=== PATIENT | female | born 1950 | race African-American/Black ===

== ENCOUNTER → 2020-08-03 09:08 | Outpatient (BNVA) | payer MEDICAID, SELFPAY | PROVIDERS: PCP Family Medicine; Visit Provider Anesthesiology | DX: M47.816 Spondylosis without myelopathy or radiculopathy, lumbar region (principal) | CPT/HCPCS: 99202 ==

== ENCOUNTER → 2020-08-12 14:56 | Outpatient (BNVA) | payer MEDICAID, SELFPAY | PROVIDERS: Visit Provider Urology ==

== ENCOUNTER 2020-08-30 06:11 | Outpatient (REF) | payer MEDICAID, SELFPAY ==
--- NOTE | ~2020-08-30 | FL_ITS ---
EXAMINATION: XR FLUOROSCOPY WITH IMAGES CLINICAL INFORMATION: Spondylosis lumbar region COMPARISON: None. TECHNIQUE: Fluoroscopy performed by Noa Mccullough NP. Fluoroscopy time: 0.7 minutes DAP: 8.7 Gycm2 Images: 4 FINDINGS: Images demonstrate needle placement and epidural contrast injections adjacent to the left L2-L5 vertebral bodies. FL/FL guidance in treatment room IMPRESSION: Fluoroscopy guidance for left side lumbar epidural injections.
== END 2020-08-30 06:12 | disposition home or self-care (01) ==
LOC: HO.RADIR 06:11
PROVIDERS: Visit Provider Anesthesiology
DX: M47.816 Spondylosis without myelopathy or radiculopathy, lumbar region (principal); M54.5 Low back pain
CPT/HCPCS: 64493; 64494; 64495; Q9967

== ENCOUNTER → 2020-09-05 15:49 | Outpatient (BNVA) | payer MEDICAID, SELFPAY | PROVIDERS: Visit Provider Anesthesiology ==

== ENCOUNTER 2020-09-23 13:23 | Outpatient (REF) | payer MEDICAID, SELFPAY ==
--- NOTE | ~2020-09-23 | MM_ITS ---
EXAMINATION: MM SCREENING DIGITAL BREAST TOMOSYNTHESIS, BILATERAL CLINICAL INFORMATION: Screening. Asymptomatic. Benign left stereotactic biopsy 10/13/2015 (fibrocystic changes including apocrine metaplasia and fibrosis with associated microcalcifications). The lifetime risk of breast cancer based on the Tyrer-Cuzick Model is 8%. COMPARISON: Mammography: 12/30/2018 and prior studies dating back to 10/13/2015. Bilateral targeted ultrasound 10/10/2015. TECHNIQUE: Digital breast tomosynthesis is performed in both the craniocaudal and mediolateral oblique views along with computer-aided detection (CAD). Synthesized 2D images are generated from the tomosynthesis. FINDINGS: There are scattered areas of fibroglandular density (ACR BI-RADS breast composition Category b). There are no significant masses, abnormal calcifications, or other abnormalities. Right breast shows no interval mass or architectural abnormality. Cysts right breast have regressed since 2016. Left breast has biopsy clip marker mid 3:00 position. There are some scattered stable calcifications including known dermal calcifications anterior 12:00 position. Scattered cysts left breast is essentially regressed 2016. MM/MM tomosynthesis screening BI IMPRESSION: 1. No mammographic evidence of malignancy. 2. Interval regression bilateral cysts since 2016. 3. Known grouped dermal calcifications upper anterior left breast stable. ASSESSMENT: BI-RADS 2: Benign RECOMMENDATION: Routine annual mammography screening. This patient's information was entered into a reminder system with a target due date for their next mammogram.
== END 2020-09-23 13:24 | disposition home or self-care (01) ==
LOC: HO.MAMMO 13:23
PROVIDERS: Visit Provider Family Medicine
DX: Z12.31 Encounter for screening mammogram for malignant neoplasm of breast (principal)
CPT/HCPCS: 77063; 77067

== ENCOUNTER → 2020-11-15 13:39 | Outpatient (BNVA) | payer MEDICAID, SELFPAY | PROVIDERS: PCP Internal Medicine; Referring Provider Internal Medicine; Visit Provider Internal Medicine Endocrinology, Diabetes & Metabolism | DX: M81.0 Age-related osteoporosis without current pathological fracture (principal) | CPT/HCPCS: 99202 ==

== ENCOUNTER 2020-11-21 13:58 | Outpatient (REF) | payer MEDICAID, SELFPAY ==
[2020-11-21 15:04] LABS: Alanine Aminotransferase 10 U/L (0-31); Albumin Level 3.6 g/dL (3.5-5.0); Alkaline Phosphatase 96 U/L (39-117); Anion Gap 10 (12-20); Aspartate Amino Transferase 18 U/L (5-31); Bilirubin Total 1.1 mg/dL (0.0-1.0); Blood Urea Nitrogen 12 mg/dL (9-16); Calcium 8.8 mg/dL (8.4-10.2); Carbon Dioxide 27 mmol/L (22-29); Chloride 109 mmol/L (96-108); Estimated Glomerular Filt Rate > 60; Glucose Fasting 91 mg/dL (60-99); Potassium 3.5 mmol/L (3.3-5.1); Sodium 142 mmol/L (135-145); Total Protein 7.1 g/dL (6.5-8.0)
[2020-11-21 15:26] LABS: Free T4 (Free Thyroxine) 1.08 ng/dL (0.71-1.85); Thyroid Stimulating Hormone 0.44 uIU/mL (0.32-4.0); Vitamin D 25-OH Total 47.3 ng/mL (>30)
[2020-11-21 15:34] LABS: Total Volume 24 Hour Urine 1400 mL
[2020-11-21 15:46] LABS: Creatinine, 24Hr Urine 1.3 G/Day (1.0-2.0); Creatinine, mg/dL 90.21
[2020-11-23 10:26] LABS: Calcium (PTHI) 8.7 mg/dL (8.6-10.4); PTHI 146 pg/mL (14-64)
[2020-11-24 18:26] LABS: Calcium, 24 Hr Urine 211 mg/24 h; Calcium/Creatinine Ratio 102 mg/g creat (30-275); Creatinine 24Hr Urine 2.07 g/24 h (0.50-2.15)
[2020-11-25 04:58] LABS: N-Telopeptide 31 (see note); NTXCreaRU 150 mg/dL (20-275)
== END 2020-11-21 13:59 | disposition home or self-care (01) ==
LOC: HO.LAB 13:58
PROVIDERS: Visit Provider Internal Medicine Endocrinology, Diabetes & Metabolism
DX: M81.0 Age-related osteoporosis without current pathological fracture (principal)
CPT/HCPCS: 36415; 80053; 82306; 82340; 82523; 82570; 83970; 84439; 84443

== ENCOUNTER 2020-12-02 11:15 | Emergency (ER) | payer MEDICAID, SELFPAY ==
--- NOTE | ~2020-12-02 | CT_ITS ---
EXAMINATION: CT HEAD WITHOUT CONTRAST CLINICAL INFORMATION: Unwitnessed fall yesterday. Secondary trauma. COMPARISON: None TECHNIQUE: Contiguous axial imaging was performed from the skull base to vertex without intravenous administration of contrast. Additional 2-D coronal and sagittal reformatted images are generated on the CT workstation and uploaded to PACS. This CT examination was performed using dose optimization techniques as appropriate, variously including the following: *Automated exposure control *Adjustment of mA and/or kV according to patient size (this includes techniques or standardized protocols for targeted exams where dose is matched to indication/reason for exam; i.e. extremities or head) *Use of iterative reconstruction technique DLP: 700 mGy-cm FINDINGS: There is no intracranial hemorrhage, hematoma, or extra-axial fluid collection. The ventricles are normal in size. There is no hydrocephalus, edema, or mass effect. The centeno-white matter differentiation appears symmetric. There is no visible acute territorial infarct or mass lesion. There are mild atrophic changes with nonfocal accentuation of the cortical sulci and fissures and cisterns. The calvarium appears intact. There is no pneumocephalus or orbital emphysema. The visualized sinuses and middle ears and mastoid air cells show no significant mucosal thickening. There are no air-fluid levels. CT/CT head/brain wo con IMPRESSION: No acute intracranial abnormality.
--- NOTE | ~2020-12-02 | XR_ITS ---
EXAMINATION: XR CHEST CLINICAL INFORMATION: Weakness, fall COMPARISON: Chest radiographs 11/11/2015 TECHNIQUE: Upright AP view of the chest was obtained. FINDINGS: The cardiopericardial silhouette is borderline enlarged, similar to prior exam 2016. The vascularity is normal. There is no vascular congestion, airspace consolidation, pleural reaction, or effusion. No pneumothorax or pneumomediastinum. The costophrenic sulci are clear. The hilar and mediastinal contours are normal. No visible acute bony abnormality. XR/XR chest 1V IMPRESSION: No acute intrathoracic disease.
--- NOTE | ~2020-12-02 | XR_ITS ---
EXAMINATION: XR KNEE, LEFT CLINICAL INFORMATION: Fall, trauma, pain. Unable to bear weight. COMPARISON: None TECHNIQUE: Four views of the left knee. FINDINGS: There is no fracture, dislocation, destructive process. There is narrowing lateral knee joint compartment with mild genu valgus. No erosive change or chondrocalcinosis. There is moderate suprapatellar effusion. Bulky spurring is present patella at the quadriceps insertion and origin patellar tendon. There is some thickening of the patellar soft tissue and mild edema in the deep infrapatellar recess. XR/XR knee LT 3V IMPRESSION: 1. No fracture or dislocation. 2. Mild lateral compartment narrowing with moderate suprapatellar effusion. 3. Bulky spurring anterior mechanism. Mild edema deep infrapatellar recess.
--- NOTE | ~2020-12-02 | XR_ITS ---
EXAMINATION: XR HIP, LEFT CLINICAL INFORMATION: Fall, trauma, pain COMPARISON: Radiographs left hip 02/15/2016. TECHNIQUE: Three views of the left hip. FINDINGS: There is no fracture or dislocation. No destructive process. There is no hip joint narrowing or erosive change or visible chondrocalcinosis. Chronic spurring is present involving the ischial tuberosity as well as the greater trochanter. No diastases pubis. XR/XR hip LT min 2V IMPRESSION: No fracture or dislocation.
[2020-12-02 11:41] VITALS: BP 95/59; PULSE 77; RESP 16; TEMP 36.7; O2SAT 97; BMI 31.6
--- NOTE | 2020-12-02 13:09 | ECG_ITS ---
Test Reason : WEAKNESS Blood Pressure : / mmHG Vent. Rate : 067 BPM Atrial Rate : 067 BPM P-R Int : 256 ms QRS Dur : 084 ms QT Int : 408 ms P-R-T Axes : 042 025 075 degrees QTc Int : 431 ms Sinus rhythm with 1st degree A-V block Nonspecific T wave abnormality Abnormal ECG No previous ECGs available Referred By: Roxy Clayton Electronically Signed By:JOSE QUINTANA
[2020-12-02 13:26] VITALS: BP 127/70; PULSE 72; RESP 18; TEMP 36.4; O2SAT 97
[2020-12-02] MEDS: 0.9 % Sodium Chloride 1,000 ML 999 ML IVCONT (13:34)
--- NOTE | 2020-12-02 13:41 | ED.WEAKNESS ---
HPI - Weakness General Chief complaint: Weakness Stated complaint: weakness Time Seen by Provider: 12/02/20 12:59 Source: patient Mode of arrival: ambulatory History of Present Illness HPI Narrative: 70-year-old female with a past medical history of hyperparathyroid, osteoporosis, Parkinson's, presenting to the ED complaining of increased generalized weakness over the past month, mechanical fall yesterday on left side after left knee gave out, unknown head trauma, patient denies LOC. Has been unable to bear weight on left lower extremity send incident. Denies symptoms prior to fall including CP/SOB, lightheadedness/dizziness. Denies a headache, visual changes, CP/SOB now, abdominal pain, nausea/vomiting, numbness/tingling, fever, chills MD Complaint: generalized weakness Related Data Home Medications Medication Instructions Recorded Confirmed carbidopa ER 50 mg-levodopa 200 mg 1 tab PO BID 08/03/20 11/15/20 tablet,extended release chlorhexidine gluconate 0.12 % 15 ml MUCOUS MEMBRANE BID 08/03/20 11/15/20 mouthwash cholecalciferol (vitamin D3) 125 125 mcg PO DAILY 08/03/20 11/15/20 mcg (5,000 unit) capsule diclofenac sodium 1 % topical gel 2 g TOPICAL QID 08/03/20 11/15/20 duloxetine 60 mg capsule,delayed 60 mg PO DAILY 08/03/20 11/15/20 release ibuprofen 800 mg tablet 800 mg PO TID 08/03/20 11/15/20 latanoprost 0.005 % eye drops 1 drp OPHTHALMIC (EYE) DAILY 08/03/20 11/15/20 meclizine 25 mg tablet 25 mg PO DAILY 08/03/20 11/15/20 oxybutynin chloride 5 mg 5 mg PO DAILY 08/03/20 11/15/20 tablet,extended release 24 hr simvastatin 10 mg tablet 10 mg PO DAILY 08/03/20 11/15/20 timolol 0.5 % eye drops 1 drp OPHTHALMIC (EYE) DAILY 08/03/20 11/15/20 tramadol 50 mg tablet 50 mg PO Q6H PRN 08/03/20 11/15/20 Previous Rx's Medication Instructions Recorded mirabegron 25 mg tablet,extended 25 mg PO DAILY 60 Days #60 tab 10/18/20 release 24 hr tamsulosin 0.4 mg capsule 0.4 mg PO BEDTIME 60 Days #60 cap 10/18/20 alendronate 70 mg tablet 70 mg PO QWEEK 90 Days #13 tab 11/15/20 ibuprofen 800 mg PO Q8H PRN #20 tab 12/02/20 oxycodone-acetaminophen [Percocet] 1 tab PO Q8H PRN 3 Days #9 tab 12/02/20 rolling walker #1 ea 12/02/20 Allergies Allergy/AdvReac Type Severity Reaction Status Date / Time No Known Allergies Allergy Verified 09/05/20 15:49 Review of Systems Review of Systems: Constitutional: No Fever, No Chills, + Fatigue, No Malaise Eyes: No Eye Pain, No Swelling, No Vision Changes Cardiovascular: No Chest Pain, No SOB, No Edema Respiratory: No Cough, No Sputum, No Dyspnea Gastrointestinal: No Nausea, No Vomiting, No Diarrhea, No Abdominal pain Genitourinary: No irregular bleeding, No Dysuria, No Urinary Frequency, No Hematuria,No Flank Pain Musculoskeletal: +L knee pain, No Myalgias, No Joint Swelling Skin: No Skin Lesions, No rash Neuro: + Weakness, No Numbness, No Paresthesias, No Loss of Consciousness, Unknown head trauma, No Dizziness, No Headache Yes all other systems are reviewed and are negative Neurologic: Denies Abnormal speech present [facility] Past Medical History Attestation statement: The following information was validated with the patient. Medical History (Updated 12/02/20 @ 18:02 by MOY Cooney) Arthropathy of lumbar facet joint Hyperparathyroidism Low back pain Osteoporosis Parkinson disease Surgical History (Updated 11/15/20 @ 13:51 by ABDULLAHI Amado) No pertinent past surgical history Family History Family History (Updated 11/15/20 @ 13:58 by ABDULLAHI Amado) Father No problems noted. Mother No problems noted. Social History Social History (Updated 11/15/20 @ 13:51 by ABDULLAHI Amado) Alcohol intake: never Patient Tobacco Use Status: Never used Tobacco Advance Directives: No Advance Directives Information Provided: No Physical Exam Vital Signs: Vital Signs: Last Vital Signs Temp 98 F 12/02/20 16:46 Pulse 71 12/02/20 16:46 Resp 18 06/18/21 16:46 BP 134/72 12/02/20 16:46 Pulse Ox 97 12/02/20 16:46 Body Mass Index 31.6 Const: General: cooperative and no acute distress Orientation/consciousness: patient oriented x3 Limitations: no limitations HENMT: Head: Yes normal to inspection Ears: hearing grossly normal bilaterally General nose exam: Normal external nose present Face and sinus: Yes normal facial exam Mouth: Normal oral and palatal mucosa present Eyes: General: appearance normal, both eyes and all related structures Pupils: Equal, round and reactive pupils present EOM: EOMs intact bilaterally Neck: Neck: Yes normal visual inspection and Yes no lymphadenopathy Resp: Effort & Inspection: normal respiratory effort Auscultation: clear to auscultation bilaterally and no wheezes Cardio: Rate: regular rate Heart sounds: S1 normal heart sound present and S2 normal heart sound present GI: Inspection: Yes normal to inspection Palpation (GI): Soft to palpation, nontender, no guarding and not rigid Skin: Rashes: no rashes Wounds: no wounds Neuro: General: patient oriented x3, tone normal, moves all extremities, no focal motor deficits and CN's II-XI intact bilaterally Cranial nerves: Yes Equal, round and reactive pupils present Speech: No Abnormal speech present Motor exam (neuro): 5/5 motor strength present throughout, Pronator motor function not present and no tremor noted Coordination: [id number] test normal Extrem: Other: Left knee with mild tenderness to palpation. Decreased full flexion secondary to pain. Pelvis stable, hips nontender General: Yes normal to inspection Course Course Course Narrative: -no leukocytosis, H&H stable, labs otherwise unremarkable, troponin negative -CXR unremarkable CT head/brain wo con IMPRESSION: No acute intracranial abnormality. XR knee LT 3V IMPRESSION: 1. No fracture or dislocation. 2. Mild lateral compartment narrowing with moderate suprapatellar effusion. 3. Bulky spurring anterior mechanism. Mild edema deep infrapatellar recess. XR hip LT min 2V IMPRESSION: No fracture or dislocation. -offered patient PT/case management however not willing to stay overnight for physical therapy evaluation in the morning. Case Management spoke to patient and daughter, plan to call PCP on Saturday to hopefully set up home PT for patient. -UA not infected MDM - Weakness MDM Narrative Medical decision making narrative: 70-year-old female with a past medical history of hyperparathyroid, osteoporosis, Parkinson's, presenting to the ED complaining of increased generalized weakness over the past month, mechanical fall yesterday on left side after left knee gave out, unknown head trauma, patient denies LOC. On exam initially hypotensive, corrective without intervention on repeat, NAD/nontoxic, no focal deficits, concern for metabolic/infectious etiology. Rule out ICH vs fracture vs ACS vs generalized deconditioning from Parkinson's Plan: EKG, labs, UA, head CT, CXR, IVF, reassess Medical Records Attestation: I reviewed the patient's medical records. Lab Data Attestation: I reviewed the patient's lab results. Result diagrams: 12/02/20 13:34 12/02/20 13:34 Labs: Lab Results 12/02/20 12/02/20 12/02/20 Range/Units 13:33 13:34 13:34 WBC 5.5 (4.8-10.8) X10*3/uL RBC 4.05 L (4.20-5.50) X10*6/uL Hgb 12.3 (12.0-16.0) g/dl Hct 38.4 (37-47) % MCV 94.8 (80-98) fL MCH 30.4 (27.0-33.0) pg MCHC 32.0 (31.0-35.0) g/dl RDW 13.7 (11.0-16.0) % Plt Count 176 (160-400) X10*3/uL MPV 10.4 (9.4-12.3) fL Immature Gran % (Auto) 0.2 (0.0-0.4) % Neut % (Auto) 47.5 (45-73) % Lymph % (Auto) 37.3 (20-40) % [place] % (Auto) 13.3 H (2-11) % Eos % (Auto) 1.3 (0-4) % Baso % (Auto) 0.4 (0-2) % Lymph # (Auto) 2.1 (1.2-4.9) X10*3/uL [place] # (Auto) 0.7 (0.1-1.2) X10*3/uL Eos # (Auto) 0.1 (0.0-0.4) X10*3/uL Baso # (Auto) 0.0 (0.0-0.2) X10*3/uL Abs Immat Gran (auto) 0.01 (0.00-0.03) X10*3/uL Absolute Neuts (auto) 2.6 (2.0-8.3) X10*3/uL Absolute Nucleated RBC 0.000 (0.0-0.012) X10*3/uL Nucleated RBC % (auto) 0.0 (0.0-0.2) /100WBC PT (10.8-13.0) SEC INR (0.9-1.1) APTT (24.1-38.0) SEC Sodium 142 (135-145) mmol/L Potassium 4.3 D (3.3-5.1) mmol/L Chloride 111 H (96-108) mmol/L Carbon Dioxide 27 (22-29) mmol/L Anion Gap 8 L (12-20) BUN 17 H (9-16) mg/dL Creatinine 0.82 (0.5-1.4) mg/dL Estim Creat Clear Calc 68.2 Estimated GFR > 60 Random Glucose 131 H (60-115) mg/dL Calcium 8.7 (8.4-10.2) mg/dL Magnesium (1.6-2.6) mg/dL Total Bilirubin 0.9 (0.0-1.0) mg/dL AST 15 (5-31) U/L ALT 9 (0-31) U/L Alkaline Phosphatase 92 (39-117) U/L Troponin I High Sens (<3.5-17.0) ng/L B-Natriuretic Peptide (<100) pg/mL Total Protein 7.0 (6.5-8.0) g/dL Albumin 3.6 (3.5-5.0) g/dL Urine Color Urine Appearance Urine pH (5.0-8.0) Ur Specific [place] (1.005-1.025) Urine Protein (NEG-TRACE) MG/DL Urine Glucose (UA) (NEG) MG/DL Urine Ketones (NEG) MG/DL Urine Blood (NEG) Urine Nitrite (NEG) Ur Leukocyte Esterase (NEG) Urine RBC (0) /HPF Urine WBC (0-4) /HPF Ur Squamous Epith Cells /LPF Urine Bacteria /LPF COVID-19 (MIGUEL) Negative (Negative) COVID-19 Clin Com See Note 12/02/20 12/02/20 12/02/20 Range/Units 13:34 13:34 13:34 WBC (4.8-10.8) X10*3/uL RBC (4.20-5.50) X10*6/uL Hgb (12.0-16.0) g/dl Hct (37-47) % MCV (80-98) fL MCH (27.0-33.0) pg MCHC (31.0-35.0) g/dl RDW (11.0-16.0) % Plt Count (160-400) X10*3/uL MPV (9.4-12.3) fL Immature Gran % (Auto) (0.0-0.4) % Neut % (Auto) (45-73) % Lymph % (Auto) (20-40) % [place] % (Auto) (2-11) % Eos % (Auto) (0-4) % Baso % (Auto) (0-2) % Lymph # (Auto) (1.2-4.9) X10*3/uL [place] # (Auto) (0.1-1.2) X10*3/uL Eos # (Auto) (0.0-0.4) X10*3/uL Baso # (Auto) (0.0-0.2) X10*3/uL Abs Immat Gran (auto) (0.00-0.03) X10*3/uL Absolute Neuts (auto) (2.0-8.3) X10*3/uL Absolute Nucleated RBC (0.0-0.012) X10*3/uL Nucleated RBC % (auto) (0.0-0.2) /100WBC PT 12.6 (10.8-13.0) SEC INR 1.1 (0.9-1.1) APTT 34.1 (24.1-38.0) SEC Sodium (135-145) mmol/L Potassium (3.3-5.1) mmol/L Chloride (96-108) mmol/L Carbon Dioxide (22-29) mmol/L Anion Gap (12-20) BUN (9-16) mg/dL Creatinine (0.5-1.4) mg/dL Estim Creat Clear Calc Estimated GFR Random Glucose (60-115) mg/dL Calcium (8.4-10.2) mg/dL Magnesium 2.5 (1.6-2.6) mg/dL Total Bilirubin (0.0-1.0) mg/dL AST (5-31) U/L ALT (0-31) U/L Alkaline Phosphatase (39-117) U/L Troponin I High Sens < 3.5 (<3.5-17.0) ng/L B-Natriuretic Peptide 42 (<100) pg/mL Total Protein (6.5-8.0) g/dL Albumin (3.5-5.0) g/dL Urine Color Urine Appearance Urine pH (5.0-8.0) Ur Specific [place] (1.005-1.025) Urine Protein (NEG-TRACE) MG/DL Urine Glucose (UA) (NEG) MG/DL Urine Ketones (NEG) MG/DL Urine Blood (NEG) Urine Nitrite (NEG) Ur Leukocyte Esterase (NEG) Urine RBC (0) /HPF Urine WBC (0-4) /HPF Ur Squamous Epith Cells /LPF Urine Bacteria /LPF COVID-19 (MIGUEL) (Negative) COVID-19 Clin Com 12/02/20 Range/Units 17:30 WBC (4.8-10.8) X10*3/uL RBC (4.20-5.50) X10*6/uL Hgb (12.0-16.0) g/dl Hct (37-47) % MCV (80-98) fL MCH (27.0-33.0) pg MCHC (31.0-35.0) g/dl RDW (11.0-16.0) % Plt Count (160-400) X10*3/uL MPV (9.4-12.3) fL Immature Gran % (Auto) (0.0-0.4) % Neut % (Auto) (45-73) % Lymph % (Auto) (20-40) % [place] % (Auto) (2-11) % Eos % (Auto) (0-4) % Baso % (Auto) (0-2) % Lymph # (Auto) (1.2-4.9) X10*3/uL [place] # (Auto) (0.1-1.2) X10*3/uL Eos # (Auto) (0.0-0.4) X10*3/uL Baso # (Auto) (0.0-0.2) X10*3/uL Abs Immat Gran (auto) (0.00-0.03) X10*3/uL Absolute Neuts (auto) (2.0-8.3) X10*3/uL Absolute Nucleated RBC (0.0-0.012) X10*3/uL Nucleated RBC % (auto) (0.0-0.2) /100WBC PT (10.8-13.0) SEC INR (0.9-1.1) APTT (24.1-38.0) SEC Sodium (135-145) mmol/L Potassium (3.3-5.1) mmol/L Chloride (96-108) mmol/L Carbon Dioxide (22-29) mmol/L Anion Gap (12-20) BUN (9-16) mg/dL Creatinine (0.5-1.4) mg/dL Estim Creat Clear Calc Estimated GFR Random Glucose (60-115) mg/dL Calcium (8.4-10.2) mg/dL Magnesium (1.6-2.6) mg/dL Total Bilirubin (0.0-1.0) mg/dL AST (5-31) U/L ALT (0-31) U/L Alkaline Phosphatase (39-117) U/L Troponin I High Sens (<3.5-17.0) ng/L B-Natriuretic Peptide (<100) pg/mL Total Protein (6.5-8.0) g/dL Albumin (3.5-5.0) g/dL Urine Color YELLOW Urine Appearance CLEAR Urine pH 7.5 (5.0-8.0) Ur Specific [place] 1.010 (1.005-1.025) Urine Protein NEG (NEG-TRACE) MG/DL Urine Glucose (UA) NEG (NEG) MG/DL Urine Ketones NEG (NEG) MG/DL Urine Blood TRACE (NEG) Urine Nitrite NEG (NEG) Ur Leukocyte Esterase NEG (NEG) Urine RBC 1-4 (0) /HPF Urine WBC 0 (0-4) /HPF Ur Squamous Epith Cells NONE /LPF Urine Bacteria NONE /LPF COVID-19 (MIGUEL) (Negative) COVID-19 Clin Com Discharge Plan Discharge Clinical Impression: Generalized weakness, Fall, Acute pain of left knee Patient Disposition: Home, Self-Care Instructions: Weakness (ED) Additional Instructions: Your blood work was reassuring today in the emergency department Percocet is an opiate pain medication, take only when pain is severe for the next 3 days In addition take Tylenol and Motrin at home. Be aware Percocet Tylenol mixed in do not exceed 4 g in 1 day Your imaging studies were unremarkable other than your knee x-ray which did show some fluid above your patella and some swelling deep to your patella. Wear Mehul wrap at home as needed for comfort/stability. Ice and elevate her knee. Follow up with her primary care doctor and Orthopedics, you likely need an MRI outpatient, and cortisone injections may help with her pain Call your primary care doctor on Saturday, it is recommended you likely need home physical therapy to build up her strength If your symptoms persist or worsen, your unable to ambulate, you develop fever, chest pain, or shortness of breath please return to the ED Prescriptions: New (DME) karol walker See Rx Instructions .Route .MEDSUPPLY Qty: 1 RF: 0 oxycodone-acetaminophen [Percocet] 5-325 mg tablet 1 tab PO Q8H PRN (Reason: pain, severe) 3 Days Qty: 9 RF: 0 ibuprofen 800 mg tablet 800 mg PO Q8H PRN (Reason: pain) Qty: 20 RF: 0 No Action carbidopa-levodopa 50-200 mg tablet extended release 1 tab PO BID RF: 0 meclizine 25 mg tablet 25 mg PO DAILY RF: 0 latanoprost 0.005 % drops 1 drp ophthalmic (eye) DAILY RF: 0 timolol 0.5 % drops 1 drp ophthalmic (eye) DAILY RF: 0 chlorhexidine gluconate [Periogard] 0.12 % mouthwash 15 ml mucous membrane BID RF: 0 simvastatin 10 mg tablet 10 mg PO DAILY RF: 0 ibuprofen 800 mg tablet 800 mg PO TID RF: 0 cholecalciferol (vitamin D3) 125 mcg (5,000 unit) capsule 125 mcg PO DAILY RF: 0 duloxetine [Cymbalta] 60 mg capsule,delayed release(DR/EC) 60 mg PO DAILY RF: 0 oxybutynin chloride [Ditropan XL] 5 mg tablet extended release 24hr 5 mg PO DAILY RF: 0 diclofenac sodium [Voltaren] 1 % gel 2 g topical QID RF: 0 tramadol 50 mg tablet 50 mg PO Q6H PRNRF: 0 alendronate 70 mg tablet 70 mg PO QWEEK 90 Days Qty: 13 RF: 1 Myrbetriq 25 mg tablet extended release 24 hr 25 mg PO DAILY 60 Days Qty: 60 RF: 0 tamsulosin 0.4 mg capsule 0.4 mg PO BEDTIME 60 Days Qty: 60 RF: 0 Referrals: Stormy Abarca MD [Primary Care Provider] - 2 days Interventions: ED Discharge Assessment Last Done: 12/02/20 18:11 Discharge Date/Time: 12/02/20 18:11
[2020-12-02 13:44] LABS: Basophils Percent Auto 0.4 % (0-2); Eosinophils Absolute Auto 0.1 X10*3/uL (0.0-0.4); Eosinophils Percent Auto 1.3 % (0-4); Hematocrit 38.4 % (37-47); Hemoglobin 12.3 g/dl (12.0-16.0); Imm Gran Abs Auto 0.01 X10*3/uL (0.00-0.03); Imm Gran Pct Auto 0.2 % (0.0-0.4); Lymphocytes Absolute Auto 2.1 X10*3/uL (1.2-4.9); Lymphocytes Percent Auto 37.3 % (20-40); MANUAL DIFF FLAG NO; Mean Corpuscular Hemoglobin 30.4 pg (27.0-33.0); Mean Corpuscular Volume 94.8 fL (80-98); Mean Platelet Volume 10.4 fL (9.4-12.3); Monocytes Absolute Auto 0.7 X10*3/uL (0.1-1.2); Monocytes Percent Auto 13.3 % (2-11); Neutrophils Absolute Auto 2.6 X10*3/uL (2.0-8.3); Neutrophils Percent Auto 47.5 % (45-73); Platelet Count 176 X10*3/uL (160-400); Red Blood Count 4.05 X10*6/uL (4.20-5.50); Red Cell Distribution Width 13.7 % (11.0-16.0); White Blood Count 5.5 X10*3/uL (4.8-10.8)
[2020-12-02 14:00] LABS: COVID-19 Test Negative (Negative); IDNOW Serial# 9DD0AD1C
[2020-12-02 14:03] LABS: INTERNATIONAL NORM RATIO 1.1 (0.9-1.1); Prothrombin Time 12.6 SEC (10.8-13.0)
[2020-12-02 14:06] LABS: Partial Thromboplastin Time 34.1 SEC (24.1-38.0)
[2020-12-02 14:11] LABS: Alanine Aminotransferase 9 U/L (0-31); Albumin Level 3.6 g/dL (3.5-5.0); Alkaline Phosphatase 92 U/L (39-117); Anion Gap 8 (12-20); Aspartate Amino Transferase 15 U/L (5-31); Bilirubin Total 0.9 mg/dL (0.0-1.0); Blood Urea Nitrogen 17 mg/dL (9-16); Calcium 8.7 mg/dL (8.4-10.2); Carbon Dioxide 27 mmol/L (22-29); Chloride 111 mmol/L (96-108); Creatinine Clr Calc Pharmacy 68.2; Estimated Glomerular Filt Rate > 60; Glucose Random 131 mg/dL (60-115); Potassium 4.3 mmol/L (3.3-5.1); Sodium 142 mmol/L (135-145)
[2020-12-02 14:13] LABS: B Type Natriuretic Peptide 42 pg/mL (<100); Magnesium 2.5 mg/dL (1.6-2.6); Troponin-I High Sensitivity < 3.5 ng/L (<3.5-17.0)
[2020-12-02 15:44] VITALS: BP 124/73; PULSE 67; RESP 18; O2SAT 96
--- NOTE | 2020-12-02 16:43 | MHC.CM.ED ---
CM met with patient and daughter at request of Roxy Feliciano Pt lives with daughter and has no services. Is homebound. Knee and hip pain have made ambulation very difficult. X-rays show no fx. Daughter, Althea Baca ([phone]), is the DON at [employer]. Roxy is recommending PT evaluation. Daughter does not want her mother to stay overnight in the ED for an evaluation and will call primary care to arrange for home PT. Daughter is requesting a script for a rollator walker. Roxy Sellers. aware. CM will follow for d/c needs.
[2020-12-02 16:46] VITALS: BP 134/72; PULSE 71; RESP 18; TEMP 36.6; O2SAT 97
[2020-12-02 17:42] LABS: Glucose Urine UA NEG (NEG); Leukocyte Esterase Urine NEG (NEG); Nitrite Urine NEG (NEG); PH 7.5 (5.0-8.0); Urine Blood TRACE (NEG); Urine Ketones NEG (NEG); Urine Protein NEG (NEG-TRACE)
[2020-12-02 17:43] LABS: Appearance Urine CLEAR; Color Urine YELLOW
[2020-12-02 18:06] LABS: WBC Urine 0 /HPF (0-4)
== END 2020-12-02 18:11 | disposition home or self-care (01) ==
PROVIDERS: Physician Assistant; Emergency Provider Emergency Medicine; PCP Pediatrics
DX: R53.1 Weakness (principal); M25.562 Pain in left knee; G20 Parkinson's disease; Z91.81 History of falling; Z20.822 Contact with and (suspected) exposure to COVID-19
CPT/HCPCS: 36415; 51701; 70450; 71045; 73502; 73562; 80053; 81001; 83735; 83880; 84484; 85025; 85610; 85730; 87635; 93005; 96360; 99283; 99285

== ENCOUNTER → 2020-12-14 14:57 | Outpatient (BNVA) | payer MEDICAID, SELFPAY | PROVIDERS: PCP Pediatrics; Visit Provider Urology | DX: R39.12 Poor urinary stream (principal); N39.41 Urge incontinence | CPT/HCPCS: 99212 ==

== ENCOUNTER → 2020-12-28 12:57 | Outpatient (BNVA) | payer MEDICAID, SELFPAY | PROVIDERS: PCP Pediatrics; Visit Provider Internal Medicine Endocrinology, Diabetes & Metabolism | DX: M81.0 Age-related osteoporosis without current pathological fracture (principal); E21.3 Hyperparathyroidism, unspecified | CPT/HCPCS: 99212 ==

== ENCOUNTER 2020-12-29 10:52 | Outpatient (REF) | payer MEDICAID, SELFPAY ==
[2020-12-29 12:39] LABS: Magnesium 1.9 mg/dL (1.6-2.6); Phosphorus 3.3 mg/dL (2.7-4.5)
[2020-12-29 13:00] LABS: Vitamin D 25-OH Total 40.1 ng/mL (>30)
[2020-12-31 12:32] LABS: Immunoglobulin A 212 mg/dL (70-320)
[2021-01-02 09:32] LABS: Calcium (PTHI) 9.2 mg/dL (8.6-10.4); PTHI 104 pg/mL (14-64)
[2021-01-02 12:36] LABS: VITAMIN D (1,25 OH) D3 90 pg/mL; Vit D (1,25-Dihydroxy) Total 90 pg/mL (18-72); Vitamin D (1,25 OH) D2 <8 pg/mL
[2021-01-02 15:26] LABS: Calcium, Ionized 5.1 mg/dL (4.8-5.6)
[2021-01-03 14:31] LABS: Transglutaminase Ab IgG 2 U/mL
[2021-01-10 12:07] LABS: Endomysial IgA Antibody Negative (Negative)
== END 2020-12-29 10:53 | disposition home or self-care (01) ==
LOC: HO.LAB 10:52
PROVIDERS: Visit Provider Internal Medicine Endocrinology, Diabetes & Metabolism
DX: E21.3 Hyperparathyroidism, unspecified (principal); M81.0 Age-related osteoporosis without current pathological fracture
CPT/HCPCS: 36415; 81382; 82306; 82330; 82652; 82784; 83516; 83735; 83970; 84075; 84100; 86255; 86256

== ENCOUNTER 2021-01-12 14:54 | Outpatient (REF) | payer MEDICAID, SELFPAY ==
--- NOTE | ~2021-01-12 | MM_ITS ---
EXAMINATION: BONE DENSITOMETRY CLINICAL INDICATION: Osteoporosis. COMPARISON: Baseline BD dated 12/30/2018. TECHNIQUE: Using a Streamfile DXA System (software version: 13.1) manufactured by [employer], dual-energy x-ray absorptiometry was performed of the lumbar spine, left hip, and left forearm radius 33%. The images are of good technical quality. Summary results are attached. FINDINGS: AP SPINE L1-L4: Current: BMD 1.033 g/cm2, Z-score -0.8, T-score -1.2, osteopenia, 12.5% increase from baseline (<5% change is not significant). Baseline: BMD 0.918 g/cm2. LEFT FEMUR, NECK: Current: BMD 0.613 g/cm2, Z-score -2.6, T-score 3.1, osteoporosis. Baseline: BMD 0.677 g/cm2. LEFT FEMUR, TOTAL: Current: BMD 0.585 g/cm2, Z-score -3.2, T-score -3.4, osteoporosis, 14.3% decrease from baseline (<5% change is not significant). Baseline: BMD 0.683 g/cm2. LEFT FOREARM RADIUS 33%: BMD 0.546 g/cm2, Z-score -2.6, T-score -3.8, osteoporosis. Prior: Not previously measured. IDENTIFIED RISK FACTORS: Hyperparathyroid, osteoporosis, menopause. HISTORY OF FRACTURE: None listed. MEDICATIONS: None listed. MM/XR DEXA appendicular skeleton IMPRESSION: 1. DIAGNOSIS: Osteoporosis based on the lowest T-score value of -3.8 in the forearm radius 33% applying World Health Organization criteria. 2. 10-YEAR FRACTURE RISK PREDICTION, FRAX: Major osteoporotic fracture (clinical spine, forearm, hip or shoulder) 8.7%. Hip fracture 2.9%. 3. Treatment Recommendations: NOF guidelines recommend consideration for treatment in postmenopausal women and men age 50 and older presenting with the following: -A hip or vertebral (clinical or morphometric) fracture. -T-score less than or equal to -2.5 at the femoral neck or spine after appropriate evaluation to exclude secondary causes. -Low bone mass at the hip or spine and a 10-year fracture probability by FRAX of greater than or equal to 3% for hip fracture or greater than or equal to 20% for major osteoporotic fracture based on the [place] adapted WHO algorithm. 4. Other Recommendations: All treatment decisions require clinical judgment and consideration of individual patient factors, including patient preferences, comorbidities, previous drug use, risk factors not captured in the FRAX model (e.g. frailty, falls, vitamin D deficiency, increased bone turnover, interval significant decline in bone density) and possible under or overestimation of fracture risk by FRAX. Additional medical evaluation for secondary cause of low bone mineral density may be appropriate. FUTURE SCAN RECOMMENDATION: People with diagnosed cases of osteoporosis or at high risk for fracture should have regular bone mineral density tests. For patients eligible for Medicare, routine testing is allowed once every 2 years. The testing frequency can be increased to one year for patients who have rapidly progressing disease, those who are receiving or discontinuing medical therapy to restore bone mass, or have additional risk factors.
== END 2021-01-12 14:55 | disposition home or self-care (01) ==
LOC: HO.MAMMO 14:54
PROVIDERS: Visit Provider Internal Medicine Endocrinology, Diabetes & Metabolism
DX: Z13.820 Encounter for screening for osteoporosis (principal); M81.0 Age-related osteoporosis without current pathological fracture; E21.3 Hyperparathyroidism, unspecified; Z78.0 Asymptomatic menopausal state
CPT/HCPCS: 77081

== ENCOUNTER → 2021-06-15 15:03 | Outpatient (BNVA) | payer MEDICAID, SELFPAY | PROVIDERS: PCP Pediatrics | DX: R39.12 Poor urinary stream (principal); N39.41 Urge incontinence | CPT/HCPCS: 51798; 99212 ==

== ENCOUNTER 2021-06-29 10:43 | Outpatient (REF) | payer MEDICAID, SELFPAY ==
--- NOTE | ~2021-06-29 | XR_ITS ---
EXAMINATION: XR KNEE, LEFT CLINICAL INFORMATION: Left knee pain. COMPARISON: 12/02/2020 TECHNIQUE: Four views of the left knee. FINDINGS: There is no evidence of acute fracture or dislocation of the left knee. Medial and lateral joint space compartments appear maintained. There is marginal spurring seen involving the lateral joint space compartment. There is a small knee effusion. There is prominent spurring at the patellofemoral joint with some narrowing of the lateral facet space. Patellar spurs sites of insertion of quadriceps and patellar tendons noted. XR/XR knee LT 4V IMPRESSION: Stable degenerative changes of the left knee predominantly involving the patellofemoral joint. Small left knee effusion.
== END 2021-06-29 10:44 | disposition home or self-care (01) ==
LOC: HO.XRAY 10:43
PROVIDERS: Absent Provider Internal Medicine; PCP Internal Medicine; Visit Provider Family Medicine
DX: M25.562 Pain in left knee (principal)
CPT/HCPCS: 73564

== ENCOUNTER 2021-07-14 13:39 | Outpatient (REF) | payer MEDICAID, SELFPAY ==
--- NOTE | ~2021-07-14 | XR_ITS ---
EXAMINATION: XR HIP, LEFT CLINICAL INFORMATION: Pain. COMPARISON: Radiograph of the left hip dated from 12/02/2020. TECHNIQUE: Two views of the left hip. FINDINGS: No evidence of acute fractures or malalignment. Moderate left osteoarthritis of the glenohumeral joint with space narrowing, subcortical sclerosis and osteophytes. Moderate enthesophytes in the greater trochanter of the left femur and ischial tuberosity. No unexpected radiopaque foreign bodies. Normal appearance of the soft tissues. XR/XR hip LT min 2V IMPRESSION: No acute fractures or malalignment. However, if pain persists, recommend an interval study as early nondisplaced fractures can be occult. Moderate osteoarthritis with bony productive changes.
== END 2021-07-14 13:40 | disposition home or self-care (01) ==
LOC: HO.XRAY 13:39
PROVIDERS: PCP Internal Medicine; Visit Provider Internal Medicine
DX: M25.552 Pain in left hip (principal)
CPT/HCPCS: 73502

== ENCOUNTER → 2021-07-20 15:40 | Outpatient (BNVA) | payer OTHER, SELFPAY | PROVIDERS: PCP Internal Medicine; Visit Provider Physician Assistant | DX: M17.12 Unilateral primary osteoarthritis, left knee (principal) | CPT/HCPCS: 20610; 99202; J1020 ==

== ENCOUNTER → 2021-08-10 14:47 | Outpatient (BNVA) | payer OTHER, SELFPAY | PROVIDERS: PCP Internal Medicine; Visit Provider Physician Assistant | DX: M47.816 Spondylosis without myelopathy or radiculopathy, lumbar region (principal); E21.3 Hyperparathyroidism, unspecified; M81.0 Age-related osteoporosis without current pathological fracture; G20 Parkinson's disease | CPT/HCPCS: 99212 ==

== ENCOUNTER 2021-09-05 15:47 | Outpatient (REF) | payer OTHER, SELFPAY ==
--- NOTE | ~2021-09-05 | MR_ITS ---
EXAMINATION: MR LUMBAR SPINE WITHOUT CONTRAST CLINICAL INFORMATION: 70-year-old with complaints of the bilateral discomfort at the waist and gluteal regions, with bilateral lower extremity radicular symptoms by patient's report. Spondylosis without myelopathy or radiculopathy. COMPARISON: None TECHNIQUE: MRI of the lumbar spine was obtained using routine sequences without contrast. FINDINGS: Coronal Alignment: Partially imaged thoracolumbar dextrocurvature noted. Sagittal Alignment: There is 2 mm of grade 1 spondylolisthesis at L5-S1. There is suspicion for a possible pars fracture on the right L5 with associated marrow edema. There is trace degenerative anterolisthesis at L4-L5. Lumbosacral Junction: Normal. Partially formed rudimentary intervertebral disc space at S1-S2. Vertebral Bodies: Mild chronic anterior wedging of the T11, T12 and L1 vertebral bodies. Otherwise vertebral body heights are well maintained. Disc Spaces and Endplates: The intervertebral disc space heights are relatively well maintained throughout the lumbar spine. Multilevel disc desiccation is noted and there is moderately prominent anterolateral spondylosis deformans between L1-L2 and L5-S1 inclusive. There is partially imaged ossification of the anterior longitudinal ligament on the right with bridging osteophytosis at T10-T11 with spondylosis at T11-T12. Spinal Canal: No abnormal developmental findings. Bone Marrow: Bone marrow edema in the right L5 pedicle noted with a possible associated pars fracture. Minimal type I degenerative marrow signal changes seen along the superior endplate of L5 on the right. Type II degenerative marrow signal changes along the endplates anteriorly at L4-L5 and L5-S1. Small benign vertebral hemangioma in the L5 vertebral body. Otherwise, bone marrow signal intensity appears within normal limits. Conus Medullaris: Terminates at L2. Morphology and signal is normal. Intradural Nerve Roots: Crowding of the intradural nerve roots at L4-L5 noted consistent with spinal stenosis. Otherwise grossly unremarkable. L5-S1: Unroofing of the posterior disc margin consistent with grade 1 spondylolisthesis. Diffuse disc bulging is noted with a central to right paramedian annular fissure. Mild flattening of the ventral dural sac is noted with ligamentum flavum thickening and severe bilateral facet arthropathy with reactive subchondral marrow edema on both sides of both facet joints. Mild central spinal canal stenosis is noted, with crowding of the subarticular zones, left more than right with probable encroachment on the traversing left S1 nerve root. Severe left-sided and kuftuyoo-ah-ohezje right-sided neural foraminal stenosis is noted with impingement on the exiting L5 nerve roots, left more than right. L4-L5: Diffuse disc bulging is noted with central annular fissuring, flattening of the ventral dural sac, ligamentum flavum thickening and severe facet arthropathy, right more than left. Bilateral facet joint effusions are noted. Severe central spinal canal stenosis is noted with crowding of the intradural nerve roots with severe bilateral subarticular recess stenosis and probable encroachment on the traversing L5 nerve roots bilaterally. Eclexpkm-bu-zhozvf bilateral neural foraminal stenosis is noted with bilateral L4 nerve root impingement. L3-L4: Mild disc bulging with a superimposed shallow right subarticular to foraminal disc protrusion without significant canal stenosis. Mild left-sided and bbfo-fx-bvlfbyeb right-sided facet arthropathy noted with moderate right-sided and mild left-sided neural foraminal stenosis, with mild encroachment on the exiting right L3 nerve root. L2-L3: Subarticular to foraminal disc protrusions noted bilaterally, right more than left, with mikw-ac-nupydctv narrowing of the right subarticular zone without evidence central spinal canal stenosis. Minor facet arthrosis is noted with moderate right-sided and mild left-sided neural foraminal stenosis. Disc protrusion abuts the extraforaminal right L2 nerve root. L1-L2: No disc bulge or herniation. No significant facet arthrosis, canal or neural foraminal stenosis. Moderate facet arthropathy on the right at T11-T12 with freu-gp-dxmoberl right-sided neural foraminal stenosis. Paraspinal/Retroperitoneal: Multilevel interspinous ligament degeneration noted, with T2 hyperintensity along the interspinous ligament at L4-L5 which may reflect Baastrup's disease. MR/MR lumbar spine wo con IMPRESSION: 1. Grade 1 spondylolisthesis at L4-L5 and L5-S1 with suspicion for a nonhealed pars fracture involving the right pars interarticularis at L5. Suggest correlation with CT to confirm this. 2. Multilevel discogenic degenerative changes, spondylosis, disc bulging and disc protrusions as described above associated with multilevel posterior element hypertrophic degenerative changes. 3. Severe spinal canal stenosis at L4-L5 with bilateral subarticular recess and neural foraminal stenosis with associated traversing and exiting nerve root impingement bilaterally. 4. Mild central spinal canal stenosis at L5-S1 with the subarticular recess stenosis, left more than right with traversing left S1 nerve root impingement and bilateral neural foraminal stenosis, with L5 exiting nerve root impingement, left more than right. 5. Moderate right-sided neural foraminal compromise at L3-L4 and L2-L3 with encroachment on the exiting right L3 and L2 nerve roots. 6. 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
== END 2021-09-05 15:48 | disposition home or self-care (01) ==
LOC: HO.MRI 15:47
PROVIDERS: Visit Provider Physician Assistant
DX: M47.816 Spondylosis without myelopathy or radiculopathy, lumbar region (principal)
CPT/HCPCS: 72148

== ENCOUNTER → 2021-09-28 14:55 | Outpatient (BNVA) | payer OTHER, SELFPAY | PROVIDERS: PCP Internal Medicine | DX: M81.0 Age-related osteoporosis without current pathological fracture (principal); E21.3 Hyperparathyroidism, unspecified; N39.41 Urge incontinence; Z79.899 Other long term (current) drug therapy | CPT/HCPCS: 99212; Q3014 ==

== ENCOUNTER → 2021-10-12 15:18 | Outpatient (BNVA) | payer OTHER, SELFPAY | PROVIDERS: Visit Provider Physician Assistant | DX: M17.12 Unilateral primary osteoarthritis, left knee (principal) | CPT/HCPCS: 20610; 99212; J1040 ==

== ENCOUNTER → 2022-04-19 15:49 | Outpatient (BNVA) | payer OTHER, SELFPAY | PROVIDERS: Visit Provider Internal Medicine Endocrinology, Diabetes & Metabolism | DX: M81.0 Age-related osteoporosis without current pathological fracture (principal) | CPT/HCPCS: 99212 ==

== ENCOUNTER → 2022-06-28 15:05 | Outpatient (BNVA) | payer OTHER, SELFPAY | PROVIDERS: PCP Internal Medicine; Visit Provider Urology | DX: N32.81 Overactive bladder (principal); N39.41 Urge incontinence | CPT/HCPCS: 51798; 99212 ==

== ENCOUNTER → 2022-08-16 15:34 | Outpatient (BNVA) | payer OTHER, SELFPAY | PROVIDERS: PCP Internal Medicine; Visit Provider Urology | DX: Z13.89 Encounter for screening for other disorder (principal) ==

== ENCOUNTER 2023-07-16 12:33 | Outpatient (REF) | payer MEDICAID, SELFPAY ==
[2023-07-16 15:22] LABS: Anion Gap 11 (12-20); Blood Urea Nitrogen 11 mg/dL (9-16); Calcium 9.5 mg/dL (8.4-10.2); Carbon Dioxide 26 mmol/L (22-29); Chloride 109 mmol/L (96-108); Estimated Glomerular Filt Rate > 60; Glucose Random 99 mg/dL (60-115); Potassium 3.3 mmol/L (3.3-5.1); Sodium 143 mmol/L (135-145)
== END 2023-07-16 12:34 | disposition home or self-care (01) ==
LOC: HO.CHCLDS 12:33
PROVIDERS: Visit Provider Internal Medicine
DX: E11.9 Type 2 diabetes mellitus without complications (principal)
CPT/HCPCS: 36415; 80048

== ENCOUNTER 2023-08-26 11:41 | Outpatient (REF) | payer OTHER, SELFPAY ==
[2023-08-26 14:11] LABS: MANUAL DIFF FLAG NO
[2023-08-26 14:29] LABS: Basophils Percent Auto 0.8 % (0-2); Eosinophils Absolute Auto 0.1 X10*3/uL (0.0-0.4); Eosinophils Percent Auto 2.3 % (0-4); Hematocrit 39.9 % (37.0-47.0); Hemoglobin 12.5 g/dl (12.0-16.0); Imm Gran Abs Auto 0.01 X10*3/uL (0.00-0.03); Imm Gran Pct Auto 0.2 % (0.0-0.4); Lymphocytes Absolute Auto 2.1 X10*3/uL (1.2-4.9); Lymphocytes Percent Auto 43.2 % (20-40); Mean Corpuscular HGB Conc 31.3 g/dl (31.0-35.0); Mean Corpuscular Hemoglobin 29.6 pg (27.0-33.0); Mean Corpuscular Volume 94.5 fL (80.0-98.0); Mean Platelet Volume 10.8 fL (9.4-12.3); Monocytes Absolute Auto 0.6 X10*3/uL (0.1-1.2); Monocytes Percent Auto 13.3 % (2-11); Neutrophils Absolute Auto 1.9 x10*3/uL (2.0-8.3); Neutrophils Percent Auto 40.2 % (45-73); Platelet Count 194 X10*3/uL (160-400); Red Blood Count 4.22 X10*6/uL (4.20-5.50); White Blood Count 4.8 X10*3/uL (4.8-10.8)
[2023-08-26 15:15] LABS: Alanine Aminotransferase < 5 U/L (0-31); Albumin Level 3.6 g/dL (3.5-5.0); Alkaline Phosphatase 72 U/L (39-117); Anion Gap 13 (12-20); Aspartate Amino Transferase 17 U/L (5-31); Bilirubin Total 0.6 mg/dL (0.0-1.0); Blood Urea Nitrogen 17 mg/dL (9-16); Calcium 9.3 mg/dL (8.4-10.2); Carbon Dioxide 25 mmol/L (22-29); Chloride 110 mmol/L (96-108); Cholesterol 134 mg/dL (<200); Estimated Glomerular Filt Rate > 60; Glucose Random 89 mg/dL (60-115); HDL Cholesterol 37 mg/dL (>40); LDL Cholesterol Calculated 79 mg/dL (<100); Potassium 3.7 mmol/L (3.3-5.1); Sodium 144 mmol/L (135-145); TSH reflex Free T4 0.35 uIU/mL (0.32-4.0); Total Protein 7.4 g/dL (6.5-8.0); Triglycerides 91 mg/dL (<150)
== END 2023-08-26 11:42 | disposition home or self-care (01) ==
LOC: HO.CHCLDS 11:41
PROVIDERS: Visit Provider Internal Medicine
DX: E11.9 Type 2 diabetes mellitus without complications (principal)
CPT/HCPCS: 36415; 80053; 80061; 84443; 85025

== ENCOUNTER 2024-02-18 12:34 | Outpatient (REF) | payer OTHER, SELFPAY ==
--- NOTE | ~2024-02-18 | MM_ITS ---
EXAMINATION: MM SCREENING DIGITAL BREAST TOMOSYNTHESIS, BILATERAL CLINICAL INFORMATION: Screening. Asymptomatic. COMPARISON: Mammography: Comparison is made with available priors TECHNIQUE: Digital breast mammography with tomosynthesis is performed in both the craniocaudal and mediolateral oblique views along with computer-aided detection (CAD). FINDINGS: The breasts are heterogeneously dense, which may obscure small masses (ACR BI-RADS breast composition Category c). Right: Focal asymmetry upper outer breast nodules posterior to it. No suspicious calcifications or other abnormal findings. Left: There are no significant masses, abnormal calcifications, or other abnormalities. MM/MM tomosynthesis screening BI IMPRESSION: Left: No mammographic evidence of malignancy. Right: Focal asymmetry. Additional imaging and possible ultrasound recommended at this time. ASSESSMENT: BI-RADS BI-RADS 0 - Incomplete: Needs additional Imaging. RECOMMENDATION: 1. Additional views of the right breast 2. Targeted ultrasound if warranted after review of the additional views. 3. Radiology department staff will contact the patient for additional imaging. Additional Imaging required This examination should not preclude the clinical evaluation of a suspicious palpable abnormality. This patient's information was entered into a reminder system with a target due date for their next mammogram. Electronically signed by: Arianna Echevarria DO 03/08/2024 09:13 AM EDT
== END 2024-02-18 12:35 | disposition home or self-care (01) ==
LOC: HO.MAMMO 12:34
PROVIDERS: PCP Internal Medicine; Visit Provider Internal Medicine
DX: Z12.31 Encounter for screening mammogram for malignant neoplasm of breast (principal)
CPT/HCPCS: 77063; 77067

== ENCOUNTER → 2024-02-18 12:45 | Outpatient (BNV) | payer OTHER, SELFPAY | PROVIDERS: PCP Internal Medicine; Visit Provider Internal Medicine | DX: Z12.31 Encounter for screening mammogram for malignant neoplasm of breast (principal) | CPT/HCPCS: 77063; 77067 ==

== ENCOUNTER 2024-05-12 13:14 | Outpatient (REF) | payer OTHER, SELFPAY ==
[2024-05-12 15:35] LABS: Vitamin B12 516 pg/mL (200-900)
[2024-05-12 15:56] LABS: Estimated Average Glucose 143 mg/dL; Hemoglobin A1C 161.3985 umol/L; Hemoglobin A1c % 6.6 % (<6.0); Total Hemoglobin (HGBA1C) 3355.2746 umol/L
== END 2024-05-12 13:15 | disposition home or self-care (01) ==
LOC: HO.CHCLDS 13:14
PROVIDERS: Visit Provider Internal Medicine
DX: E11.9 Type 2 diabetes mellitus without complications (principal)
CPT/HCPCS: 36415; 82607; 83036

== ENCOUNTER → 2024-06-24 14:00 | Outpatient (BNV) | payer OTHER, SELFPAY | PROVIDERS: Visit Provider Internal Medicine | DX: N60.01 Solitary cyst of right breast (principal); R92.321 Mammographic fibroglandular density, right breast | CPT/HCPCS: 76642; 77065; G0279 ==

== ENCOUNTER 2024-06-24 14:05 | Outpatient (REF) | payer OTHER, SELFPAY ==
--- NOTE | ~2024-06-24 | US_ITS ---
EXAMINATION: MM DIAGNOSTIC DIGITAL BREAST TOMOSYNTHESIS, RIGHT Limited right breast ultrasound. CLINICAL INFORMATION: Comment from screening for asymmetry in the upper outer right breast. COMPARISON: Mammography: Comparison is made with available prior examinations. TECHNIQUE: Digital breast tomosynthesis is performed in both the craniocaudal and mediolateral oblique views along with computer-aided detection (CAD). Synthesized 2D images are generated from the tomosynthesis. Limited right breast ultrasound. FINDINGS: There are scattered areas of fibroglandular density (ACR BI-RADS breast composition Category b). Focal asymmetry in the upper outer breast partially effaces the persist on additional imaging projections. No suspicious calcifications or other abnormal findings. Targeted color Doppler ultrasound scanning in the entire lateral breast from 7-11 o'clock demonstrates normal fibroglandular breast tissue. There is a normal-appearing intramammary lymph node versus adjacent minimally complicated cyst at 9:00 9 cm from nipple measuring 6 x 3 x 6 mm. This is a questionable correlate for the focal asymmetry There is a simple cyst at 9:00 8 cm from nipple measuring 7 x 3 x 8 mm. US/US breast RT limited mamm only IMPRESSION: 1. Focal asymmetry in the upper outer quadrant without definite sonographic correlate. Recommend six-month follow-up mammography for further evaluation of stability. 2. Normal-appearing intramammary lymph node and simple cyst on ultrasound. Benign. ASSESSMENT: BI-RADS BI-RADS 3 - Probably benign finding(s) - 6 month follow-up suggested RECOMMENDATION: 6 Month F/U Results were provided to the patient at time of visit by the technologist. This patient's information was entered into a reminder system with a target due date for their next mammogram. Electronically signed by: Arianna Echevarria DO 06/24/2024 03:19 PM MARIBEL
== END 2024-06-24 14:06 | disposition home or self-care (01) ==
LOC: HO.MAMMO 14:05
PROVIDERS: Visit Provider Internal Medicine
DX: N64.89 Other specified disorders of breast (principal); N60.01 Solitary cyst of right breast
CPT/HCPCS: 76642; 77061; 77065

== ENCOUNTER 2024-07-30 07:54 | Outpatient (AMB) | payer OTHER, SELFPAY ==
--- NOTE | 2024-07-30 07:54 | A.OFFVIS_ITS ---
Intake Visit Reasons: follow up Allergies No Known Allergies Allergy (Verified 07/30/24 07:58) Medication List - Last Reconciled 07/30/24 by Randell Styles MD alendronate 70 mg PO QWEEK amantadine HCl mg PO amlodipine 5 mg PO DAILY carbidopa mg PO carbidopa-levodopa 25-100 mg ER tabs PO chlorhexidine gluconate 0.12% (Periogard) 15 mL mucous membrane BID cholecalciferol (vitamin D3) 250 mcg (2 x 125 mcg (5,000 unit)) PO DAILY 30 days ibuprofen 800 mg PO Q8H PRN latanoprost 0.005% 1 drp ophthalmic (eye) DAILY metformin mg PO mirabegron ER (Myrbetriq) 50 mg PO DAILY ondansetron HCl 4 mg PO BID PRN polyethylene glycol 3350 17 grams PO DAILY PRN polyvinyl alcohol 1.4% (Artificial Tears (polyvinyl alcohol)) 2 drps ophthalmic (eye) BID [rolling walker As directed] rosuvastatin 5 mg PO DAILY timolol 0.5% 1 drp ophthalmic (eye) DAILY timolol maleate 0.5% 1 drp ophthalmic (eye) DAILY tramadol 50 mg PO Q6H PRN HPI Comments Details: 07/30/24--Telehealth follow, patient with her daughter states Myrbetriq has significantly improved LUTS Denies UTI symptoms. 06/28/22--70-year-old female here with her daughter.? She is a nonsmoker.? followed for OAB with LUTS urinary frequency and urge incontinence Daughter reports that the patient has a good appetite and does have issues with constipation She reports good water intake on a daily basis. ? She is on oxybutynin with continued leaking episodes Evaluaiton today: Urinalysis no signs of infection, bladder scan PVR 0 mL Plan replace oxybutynin-prescription for Myrbetriq 50 mg daily ? [facility] Medical History Parkinson disease Hyperparathyroidism Osteoporosis Arthropathy of lumbar facet joint Low back pain Surgical History No pertinent past surgical history Family History Father No problems noted. Mother No problems noted. Social History Household Members: Children Household Members Other:: daughter Alcohol intake: never Patient Tobacco Use Status: Never used Tobacco Current occupational status: disabled Current occupation: R[employer] handed Review of Systems Const All systems reviewed & are unremarkable except as noted in HPI and below Reports no additional complaints Eyes Reports no additional complaints ENT Reports no additional complaints Card Reports no additional complaints Resp Reports no additional complaints GI Reports no additional complaints Reports as per HPI Musc Reports no additional complaints Skin/Breast Reports system reviewed and no additional complaints, except as documented Neuro Reports no additional complaints Psych Reports no additional complaints Endo Reports no additional complaints Zaid/Lymph Reports no additional complaints Aller/Immun Reports no additional complaints Telehealth Telehealth Telehealth Platform: [employer] Location of provider rendering services: practice address Location of patient: address on file Patient Identification confirmed using: Name, : Yes Telehealth method: video Patient verbally consented to treatment: Yes Patient verbally consented to billing insurance company: Yes Patient informed of any privacy concerns related to visit: Yes Assessment & Plan Assessment & Plan (1) Urgency incontinence: Code(s): N39.41 - Urge incontinence Category: Medical (2) OAB (overactive bladder): Code(s): N32.81 - Overactive bladder Category: Medical Plan: Mybetriq 50 mg daily Plan Myrbetriq 50 mg daily Medications: Refilled mirabegron ER (Myrbetriq) 50 mg PO DAILY 90 tabs 0RF Patient Instructions: The patient had an opportunity to ask questions regarding treatment plan. The patient expressed understanding and agreement with the above treatment plan. The patient is aware they should contact our office by phone for worsening of their current condition or the appearance of new symptoms. Compliance is encouraged with any medications and followup testing that is ordered. It is a privilege to be allowed the opportunity to participate in the urologic care of your patient. If you have any questions or concerns regarding treatment for the above conditions please do not hesitate to contact me. The office telephone contact is [phone]. This note is constructed in part using voice recognition software. While every effort has been made to ensure accuracy document processing specialist errors may have been included. Yours sincerely, Randell Styles MD Coding Level of Care Code Tele Est Pt Level 3 (66459) Diagnoses Urgency incontinence N39.41 OAB (overactive bladder) N32.81
--- OUTSIDE RECORDS SUMMARY | 2024-07-30 07:57 | XMS_ITS | Encounter Summary ---
Author Organization [employer] Address [address] [place] [address] Care Team Providers Care Clinical Pharmacy Technician Name Role Phone Cholo Dial MD Primary Care Prov ider Reason for Visit * Reason Comments Routine Cleaning Encounter Details Date Type Department Care Team ([facility] st Contact Info) Description 07/29/2024 11:00 AM EST Office Visit [facility] [address] [place] [address] Clyde Dyer Dental calculus (Primary Dx) Social History Tobacco Use Types Packs/Day Years Used Date Smoking Tobacco: Never Smokeless Tobacco: Never Depression Answer Date Recorded Patient Health Questionnaire-9 Score 0 08/26/2023 Patient Health Questionnaire-9 Score 0 08/26/2023 Last PHQ-9: Questionnaire Data Not on file 0 08/26/2023 Housing Stability Answer Date Recorded What is your housing situation today? I have darshanadam nicolas 08/26/[address] you li ve. Do you have problems with any of the following? None of the above 08/26/2023 Food Insecurity Answer Date Recorded Within the past 12 months, y ou worried that your food would run out before you got money to buy more: Never True 08/26/2023 Within the past 12 months,th e food you bought just didn't last and you didn't have enough money to get more: Never True 04/2024 Transportation Answer Date Recorded In the past 12 months, has l ack of transportation kept you from medical appts, meetings, work or from getting things needed for daily living? No 08/26/2023 Utilities Answer Date Recorded In the past 12 months, has t he electric, gas, oil or water company threatened to shut off services in your home? No 08/26/2023 Depression Answer Date Recorded Patient Health Questionnaire-2 Score 0 08/26/2023 Comments Unknown Sex and Gender Information Value Date Recorded Sex Assigned at Female 04/16/2022 10:29 AM EDT Legal Sex Female 10:29 AM EDT Gender Identity Female 04/16/2022 10:29 AM EDT Sexual Orientation Straight 04/16/2022 10 :29 AM EDT documented as of this encounter Last Filed Vital Signs Vital Sign Reading Time Taken Comments Blood Pressure 100/60 07/29/2024 4:03 PM EST Pulse 65 07/29/2024 4:03 PM EST Temperature - - Respiratory Rate - - Oxygen Saturation - - Inhaled Oxygen Concentration - - Weight - - Height - - Body Mass Index - - documented in this encounter Progress Notes * Clyde Dyer - 07/29/2024 11:00 AM EST Patient ID: Lin Linn is a 73 y.o. female. Time Out: Timeout Date: 07/29/24, Timeout Time: 1103 Location: [facility] Tooth: Maxilla and Mandible Procedure: Prophylaxis Verified the above with patient, plastic surgery assistant, and provider. Confirmed via patient's chart, intraorally and by radiographs. Die Mounter: not applicable Medical Hx: Vitals: Blood pressure 100/60, pulse 65. Medications, Med Hx reviewed with patient and updated in chart. Treatment Provided Dental procedures in this visit D1110 - PROPHYLAXIS - ADULT Full (Completed) Service provider: Clyde Mckinney provider: Lenora Harrison DDS D1330 - ORAL HYGIENE INSTRUCTIONS (Completed) Service provider: Clyde Dyer [place] provider: Lenora Harrison DDS [id number] - ADJUNCTIVE GENERAL SERVICES - PROFESSIONAL VISITS - CASE PRESENTATION, SUBSEQUENT TO DETAILED AND EXTENSIVE TREATMENT PLANNING (Completed) Service provider: Clyde Mckinney provider: Lenora Harrison DDS Instruments Used: Ultrasonic Scalers and Prophy angle Fluoride: N/A Oral Cancer Screening: No lesions Head/Neck Exam: No Lesions Calculus: Moderate and Generalized Plaque: Moderate and Generalized Stain: Moderate and Generalized Bleeding: Moderate and Generalized Gingiva: Perio Charting Completed and Bleeding on probing [place]: Poor Perio Chart: Completed Oral hygiene instructions provided to patient including brushing technique and flossing. Recommendations: Kill Buck two times daily, modified hilliard technique, Floss daily Recall Frequency: 6 mo NV: 6mr Hygienist: Clyde Dyer RDH documented in this encounter Plan of Treatment Upcoming Encounters Date Type Department Care Team (Late st Contact Info) Description 08/04/2024 11:00 AM EST Clinical Support [facility] [address] [place] [address] Tatyana Barlow, RN [address] [place] [address] 08/18/2024 2:00 PM EST Office Visit [facility] [address] [place] [address] Dony, Sultana, OD [address] [place] [address] documented as of this encounter Goals Goal Patient Goal Type Associated Problems Recent Progress Patient-Stated? Author Patient will adhere to medication regimen General Worsening(05/2023 4:09 PM EDT) No James Veloz PharmD Note: With assistance from [employer] program Present to lab General Yes Coleman Thakur, Jose Guadalupe Note: Have labs previously ordered drawn Complete Immunizations General Yes Coleman Thakur PharmD Note: Present for scheduled vaccinations documented as of this encounter Procedures Procedure Name Priority Date/Time Associated Diagnosis Comments Full PROPHYLAXIS - ADULT Routine 025 11:00 AM EST ORAL HYGIENE INSTRUCTIONS Routine 2024 11:00 AM EST CASE PRESENTATION, DETAILED AND EXTENSIVE TREATMENT PLANNING Routine 07/29/2024 11:00 AM EST documented in this encounter Visit Diagnoses Diagnosis Dental calculus- Primary Accretions on teeth documented in this encounter Additional Health Concerns Assessment Noted Time PHQ-9 Depression Total Score: 0 08/26/19 24 11:11 AM EDT documented as of this encounter Care Teams Clinical Pharmacy Technician Relationship Specialty Start Date End Date AndersonCholo Chavarria MD [address] [place] [id number] PCP - General Internal Medicine 10/26/19 documented as of this encounter
--- OUTSIDE RECORDS SUMMARY | 2024-07-30 07:57 | XMS_ITS | Encounter Summary ---
Author Organization [employer] Address [address] [facility] 7 [place] [address] Care Team Providers Care Furniture Mechanic Name Role Phone Cholo Dial MD Primary Care Prov ider Reason for Visit * Reason Onset Date Comments FYI 07/03/2023 Encounter Details Date Type Department Care Team (Late st Contact Info) Description 07/03/2023 Telephone [facility] MEDICINE [address] [place] [address] Cholo Dial MD [address] [place] [address] [phone] FYI Social History Tobacco Use Types Packs/Day Years Used Date Smoking Tobacco: Never Smokeless Tobacco: Never Comments Unknown Sex and Gender Information Value Date Recorded Sex Assigned at Female 04/16/2022 10:29 AM EDT Legal Sex Female 10:29 AM EDT Gender Identity Female 04/16/2022 10:29 AM EDT Sexual Orientation Straight 04/16/2022 10 :29 AM EDT documented as of this encounter Miscellaneous Notes * Telephone Encounter - Ridge Lopez RN - 07/03/2023 4:32 PM EST Please see message below as FYI. * Telephone Encounter - Elsa Taylor - 07/03/2023 4:00 PM EST Tc from Michele with [facility] calling to inform PCP he have a visit with pt today 07/03/2023, Michele also informed is going to have just one more visit with pt. Any question [phone] documented in this encounter Plan of Treatment Upcoming Encounters Date Type Department Care Team (Late st Contact Info) Description 08/04/2024 11:00 AM EST Clinical Support [facility] CHC MED & PEDS [address] [place] [address] Tatyana Barlow, GEE [address] [place] [address] 08/18/2024 2:00 PM EST Office Visit [facility] OPTOMETRY [address] [place], [place] [phone] Sultana Napoles, OD [address] [place] [address] documented as of this encounter Goals Goal Patient Goal Type Associated Problems Recent Progress Patient-Stated? Author Patient will adhere to medication regimen General Worsening(05/2023 4:09 PM EDT) No James Veloz, PharmD Note: With assistance from [employer] program documented as of this encounter Visit Diagnoses Not on filedocumented in this encounter Care Teams Furniture Mechanic Relationship Specialty Start Date End Date Cholo Dial MD [address] [place] [address] PCP - General Internal Medicine 10/26/19 documented as of this encounter
--- OUTSIDE RECORDS SUMMARY | 2024-07-30 07:57 | XMS_ITS | Encounter Summary ---
Author Organization [employer] Address [address] [facility] 7t [place] [address] Care Team Providers Care Release Of Information Clerk Name Role Phone Cholo Dial MD Primary Care Prov ider Encounter Details Date Type Department Care Team (Late Contact Info) Description 07/03/2022 Orders Only [facility] MEDICINE [address] [place], [place] [phone] Stormy Abarca MD [address] [place], [place] [phone] Social History Tobacco Use Types Packs/Day Years Used Date Smoking Tobacco: Never Assessed Comments Unknown Sex and Gender Information Value Date Recorded Sex Assigned at Female 04/16/2022 10:29 AM EDT Legal Sex Female 10:29 AM EDT Gender Identity Female 04/16/2022 10:29 AM EDT Sexual Orientation Straight 04/16/2022 10 :29 AM EDT COVID-19 Exposure Response Date Recorded In the last 10 days, have yo u been in contact with someone who was confirmed or suspected to have Coronavirus/COVID-19? No / Unsure 07/03/2022 9:58 AM EST documented as of this encounter Plan of Treatment Upcoming Encounters Date Type Department Care Team (Late Contact Info) Description 08/04/2024 11:00 AM EST Clinical Support [facility] CHC MED & PEDS [address] [place], [place] [phone] Tatyana Barlow, GEE [address] [place], [place] [phone] 08/18/2024 2:00 PM EST Office Visit [facility] OPTOMETRY [address] [place] [address] Sultana Napoles, OD [address] [place] [address] documented as of this encounter Visit Diagnoses Not on filedocumented in this encounter Care Teams Release Of Information Clerk Relationship Specialty Start Date End Date Cholo Dial MD [address] [place] [id number] PCP - General Internal Medicine 10/26/19 documented as of this encounter
--- OUTSIDE RECORDS SUMMARY | 2024-07-30 07:57 | XMS_ITS | Encounter Summary ---
Author Organization [employer] Address 75 [facility] 7t [place] [address] Care Team Providers Care Senior Oracle Developer Name Role Phone Cholo Dial MD Primary Care Prov ider Encounter Details Date Type Department Care Team ([facility] st Contact Info) Description 08/27/2023 Telephone [facility] CHC MED & PEDS [address] [place], [place] [phone] Cholo Dial MD [address] [place] [address] Social History Tobacco Use Types Packs/Day Years Used Date Smoking Tobacco: Never Smokeless Tobacco: Never Depression Answer Date Recorded Patient Health Questionnaire-9 Score 0 08/26/2023 Patient Health Questionnaire-9 Score 0 08/26/2023 Last PHQ-9: Questionnaire Data Not on file 0 08/26/2023 Housing Stability Answer Date Recorded What is your housing situation today? I have darshan nicolas 08/26/[address] you [...] AM EDT documented as of this encounter Plan of Treatment Upcoming Encounters Date Type Department Care Team (Late st Contact Info) Description 08/04/2024 11:00 AM EST Clinical Support [facility] CHC MED & PEDS [address] [place], [place] [phone] Tatyana Barlow, GEE [address] [place], [place] [phone] 08/18/2024 2:00 PM EST Office Visit [facility] OPTOMETRY [address] [place] [address] Dony, Sultana, OD [address] [place] [address] documented as of this encounter Goals Goal Patient Goal Type Associated Problems Recent Progress Patient-Stated? Author Patient will adhere to medication regimen General Worsening(05/2023 4:09 PM EDT) No James Veloz, YazminD Note: With assistance from [employer] program documented as of this encounter Visit Diagnoses Not on filedocumented in this encounter Additional Health Concerns Assessment Noted Time PHQ-9 Depression Total Score: 0 08/26/19 24 11:11 AM EDT documented as of this encounter Care Teams Senior Oracle Developer Relationship Specialty Start Date End Date Cholo Dial MD [address] [place], [place] [phone] PCP - General Internal Medicine 10/26/19 documented as of this encounter
--- OUTSIDE RECORDS SUMMARY | 2024-07-30 07:57 | XMS_ITS | Encounter Summary ---
Author Organization [employer] Address [address] [facility] [address] [place] [address] Care Team Providers Care Grades 1 6 Tutor Name Role Phone Cholo Dial MD Primary Care Prov ider Reason for Visit * Reason Onset Date Comments Referral 07/12/2022 Encounter Details Date Type Department Care Team ([facility] st Contact Info) Description 07/12/2022 Telephone [facility] CHC MED & PEDS [address] [place], [place] [phone] Cholo Dial MD [address] [place] [address] Referral Social History Tobacco Use Types Packs/Day Years [...] AM EST documented as of this encounter Miscellaneous Notes * Telephone Encounter - Nick Ardon RN - 07/12/2022 2:03 PM EST Please review message below and f/u with request. Thank you. * Telephone Encounter - Oskar Ceballos Rosmery - 07/12/2022 1:32 PM EST Tc from Geetha with [facility] Cardiology stating that they wanted the referrals that were sent to be resent with more information. Window Decorator try to provide more information but Geetha was not very informal. If any question please call back geetha at [phone] documented in this encounter Plan of Treatment Upcoming Encounters Date Type Department Care Team (Late st Contact Info) Description 08/04/2024 11:00 AM EST Clinical Support [facility] CHC MED & PEDS [address] [place] [address] Tatyana Barlow, GEE [address] [place] [address] 08/18/2024 2:00 PM EST Office Visit [facility] OPTOMETRY [address] [place] [address] Sultana Napoles, OD [address] [place] [address] documented as of this encounter Visit Diagnoses Not on filedocumented in this encounter Care Teams Grades 1 6 Tutor Relationship Specialty Start Date End Date Cholo Dial MD [address] [place] [address] PCP - General Internal Medicine 10/26/19 documented as of this encounter
--- OUTSIDE RECORDS SUMMARY | 2024-07-30 07:57 | XMS_ITS | Encounter Summary ---
Author Organization [employer] Address [address] [facility] 7t [place] [address] Care Team Providers Care Development System Efficiency Manager Name Role Phone Cholo Dial MD Primary Care Prov ider Reason for Visit * Reason Comments Med Refill Encounter Details Date Type Department Care Team ([facility] st Contact Info) Description 07/15/2024 Refill [facility] CHC MED & PEDS [address] [place], [place] [phone] Cholo Dial MD [address] [place] [address] Mixed hyperlipidemia Social History Tobacco Use Types Packs/Day Years [...] Description 08/04/2024 11:00 AM EST Clinical Support [facility] CHC MED & PEDS [address] [place] [address] Tatyana Barlow, RN [address] [place] [address] 08/18/2024 2:00 PM EST Office Visit [facility] OPTOMETRY [address] [place] [address] Dony, Sultana, OD [address] [place] [address] documented as of this encounter Goals Goal Patient Goal Type Associated Problems Recent Progress Patient-Stated? Author Patient will adhere to medication regimen General Worsening(05/2023 4:09 PM EDT) No James Veloz PharmD Note: With assistance from [employer] program Present to lab General Yes Coleman Thakur PharmD Note: Have labs previously ordered drawn Complete Immunizations General Yes Coleman Thakur PharmD Note: Present for scheduled vaccinations documented as of this encounter Visit Diagnoses Diagnosis Mixed hyperlipidemia documented in this encounter Additional Health Concerns Assessment Noted Time PHQ-9 Depression Total Score: 0 08/26/19 24 11:11 AM EDT documented as of this encounter Care Teams Development System Efficiency Manager Relationship Specialty Start Date End Date Cholo Dial MD [address] [place] [address] PCP - General Internal Medicine 10/26/19 documented as of this encounter
--- OUTSIDE RECORDS SUMMARY | 2024-07-30 07:57 | XMS_ITS | Encounter Summary ---
Author Organization [employer] Address [address] [facility] [address] [place] [address] Care Team Providers Care Poultry Farmer Name Role Phone Cholo Dial MD Primary Care Prov ider Encounter Details Date Type Department Care Team (Latest Contact Info) Description 10/31/2018 Abstract [facility] CONVERSIONS Dental, Provider, DDS Social History Tobacco Use Types Packs/Day Years [...] Description 08/04/2024 11:00 AM EST Clinical Support [facility] CHC MED & PEDS [address] [place] [address] Tatyana Barlow, GEE [address] [place] [address] 08/18/2024 2:00 PM EST Office Visit [facility] OPTOMETRY [address] [place] [address] Sultana Napoles, OD [address] [place] [address] documented as of this encounter Visit Diagnoses Not on filedocumented in this encounter Care Teams Poultry Farmer Relationship Specialty Start Date End Date Cholo Dial MD [address] [place] [address] PCP - General Internal Medicine 10/26/19 documented as of this encounter
--- OUTSIDE RECORDS SUMMARY | 2024-07-30 07:57 | XMS_ITS | Clinical Summary ---
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 022 Active Myrbetriq 50 MG 24 hr tablet Take 1 tablet by mouth at bedtime. 023 Active lidocaine (Lidoderm) 5 % patch Apply 1 patch topically in the morning. Remove & discard patch within 12 hours or as directed by MD. Active Aspirin Low Dose 81 MG chewable tablet Chew 1 tablet 1 (one) time each day. 024 Active Lancets miscIndications:T ype 2 diabetes mellitus without complication, without long-term current use of insulin ([facility]) Use to test blood sugar 2 times daily 100 each 11 024 Active Alcohol Swabs 70 % padsIndications:T ype 2 diabetes mellitus without complication, without long-term current use of insulin ([facility]) Use to test blood sugar 2 times daily 100 each 024 Active Blood Glucose Monitoring Suppl (FreeStyle [place] Lite) w/Device kitIndications:Ty pe 2 diabetes mellitus without complication, without long-term current use of insulin ([facility]) Use to test blood sugar 2 times daily 1 kit 024 Active amLODIPine (Norvasc) 5 MG tabletIndications :Essential hypertension Take 1 tablet (5 mg) by mouth in the morning. 90 tablet 3 024 Active latanoprost (Xalatan) 0.005 % ophthalmic solutionIndicatio ns:Dyslipidemia,S OB (shortness of breath),Raised intraocular pressure of both eyes,Primary angle closure glaucoma of both eyes, unspecified glaucoma stage, unspecified primary angle-closure glaucoma type INSERT ONE DROP IN THE AFFECTED EYE EVERY EVENING 7.5 mL 3 Active timolol (Timoptic) 0.5 % ophthalmic solutionIndicatio ns:Raised intraocular pressure of both eyes INSTILL ONE DROP IN EACH EYE EVERY DAY 15 mL 3 024 Active carbidopa (Lodsyn) 25 MG tablet Take 25 mg by mouth 2 times daily. Active carbidopa-levodop a (Sinemet) 25-100 MG tablet Take 1 tablet by mouth 2 times daily. Active carbidopa-levodop a CR (Sinemet CR) 50-200 MG ER tablet Take 1 tablet by mouth 2 times daily. Active alendronate (Fosamax) 70 MG tablet TAKE 1 TABLET ONCE A WEEK WITH 6 TO 8 OZ OF WATER 30 MINUTES BEFORE FIRST FOOD OF THE DAY. DO NOT LIE DOWN FOR 30 MINUTES. 12 tablet 3 024 Active traMADol (Ultram) 50 MG tabletIndications :Bilateral hip pain TAKE ONE TABLET EVERY TWELVE HOURS NEEDED FOR PAIN 56 tablet Active polyethylene glycol, PEG, 3350 (Miralax) 17 g packet MIX 1 PACKET IN 8 OUNCES OF WATER, JUICE,SODA, COFFEE, OR TEA DAILY NEEDED FOR CONSTIPATION 30 packet 3 024 Active rosuvastatin (Crestor) 5 MG tabletIndications :Mixed hyperlipidemia TAKE ONE TABLET EVERY NIGHT AT BEDTIME 90 tablet 1 Active metFORMIN (Glucophage) 500 MG tabletIndications :Type 2 diabetes mellitus without complication, without long-term current use of insulin (CMS/HCC) TAKE ONE TABLET IN THE MORNING AND EVENING 60 tablet 3 Active amoxicillin (Amoxil) 500 MG capsule Take 1 capsule (500 mg) by mouth every 8 (eight) hours for 7 days. 21 capsule 025 2024 Active acetaminophen (Tylenol) 500 MG tablet Take 1 tablet (500 mg) by mouth every 6 (six) hours if needed for mild pain for up to 20 doses. 20 tablet 025 Active FREESTYLE LITE test stripIndications: Type 2 diabetes mellitus without complication, without long-term current use of insulin ([facility]) Use to test blood sugar 2 times daily 100 each 12 024 2024 rosuvastatin (Crestor) 5 MG tabletIndications :Mixed hyperlipidemia TAKE ONE TABLET EVERY NIGHT AT BEDTIME 90 tablet 1 024 2024 Discontinued metFORMIN (Glucophage) 500 MG tabletIndications :Type 2 diabetes mellitus without complication, without long-term current use of insulin ([facility]) TAKE ONE TABLET TWICE DAILY IN THE MORNING AND AT BEDTIME 60 tablet 3 024 2024 Discontinued ibuprofen 800 MG tabletIndications :Bilateral hip pain Take 1 tablet (800 mg) by mouth every 8 (eight) hours if needed for mild pain. TAKE ONE TABLET BY MOUTH THREE TIMES DAILY WITH FOOD NEEDED 90 tablet 3 024 2024 Active Problems Problem Noted Date Diagnosed Date Class 1 obesity 12/30/2023 Encounter for screening mamm ogram for malignant neoplasm of breast 08/27/2023 Type 2 diabetes mellitus wit hout complication, without long-term current use of insulin 08/27/2023 Assessment & Plan (03/10/2024 12:07 PM EDT): No reported episode of hypoglycemia, she is taking metformin 500mg bid, labs not done, will follow up in 3 months Assessment & Plan (12/13/2023 4:13 PM EDT): On metformin, she has been adressing her diet, will order new A1c if below 6.5% will discontinue metformin, if above 7%, will need to discuss either increasing dose or adding another treatment, will cll with results Her FBS has been running in the 100's Post prandial 130-150's Will refer to [facility] optometry Assessment & Plan (08/27/2023 7:32 PM EDT): Improved, she is only taking metformin 500mg bid, has imprved her diet, will follow up in 3 months, will be referred for a eye exam, foot examination was unremarkable Left hip pain 08/27/2023 Screening for colon cancer 08/27/2023 Assessment & Plan (08/27/2023 7:33 PM EDT): Will order cologuard, risk vs benefit discussed Mood disorder 06/29/2022 Osteoporosis 06/29/2022 Assessment & Plan (03/10/2024 12:08 PM EDT): On alendronate, dexa scan not done, will task MA Assessment & Plan (08/27/2023 7:31 PM EDT): Will order new dexa scan for evaluation, she is on fosamax, no changes will be made Dyslipidemia 05/14/2018 Assessment & Plan (08/27/2023 7:31 PM EDT): On rosuvastatin, new labs will be ordered for guidance of therapy Essential hypertension 05/14/2018 Assessment & Plan (03/10/2024 12:03 PM EDT): Controlled, on amlodipine, refers has been ranging from 110's to 130's over 70's to 80's Assessment & Plan (12/13/2023 4:11 PM EDT): No results for today provided, on amlodipine, bp target <130/80, keep low sodium, follow up in 4 months Assessment & Plan (08/27/2023 7:29 PM EDT): Controlled on amlodipine 5mg, no changes will be made, reinforced low sodium diet and exercise as tolerated Multifactorial gait disorder 05/14/2018 Hip pain 05/14/2018 Assessment & Plan (03/10/2024 12:04 PM EDT): Followed by pain management, will renew tramadol as needed and ibuprofen Assessment & Plan (08/27/2023 7:30 PM EDT): Will order a left hip xray and will refer to pain management, she lost follow up, will restart tramadol Vitamin D deficiency 05/14/2018 Parkinson disease 04/15/2017 Overview (06/29/2022): TP IPD since 2015, Dx in 01/2017. Motor Sx include tremor Rt>Lt and slowness, with mild gait slowness. Balance is maintained. UPRDS 31. H&Y 2. NMS include RBD and mild constipation and overactive bladder. No motor complications reported. She does not exercise regularly. She hydrates well. We discussed increasing the dose of levodopa to decrease wearing off and improve her parkinsonism symptoms especially tremor. We emphasized the importance of exercise and physical therapy. We provided instructions for RBD and constipation treatment. Assessment & Plan (03/10/2024 12:02 PM EDT): Followed by neurology, she is not very compliant with medical treatment due to side effects, Assessment & Plan (08/27/2023 7:28 PM EDT): Followed by neurology, on carbi/levodopa, no dyskinesia, follow up neurology reccomendations Encounters Date Type Department Care Team Description 07/29/2024 11:00 AM EST Office Visit [facility] [address] [place] [address] Clyde Dyer Dental calculus (Primary Dx) 07/29/2024 10:45 AM EST Office Visit [facility] [address] [place] [address] ConchitaRochelle esquivelricio 07/27/2024 Refill [facility] [address] [place] [address] Cholo Dial MD Type 2 diabetes mellitus without complication, without long-term current use of insulin ([facility]) 07/15/2024 Refill [facility] [address] [place] [address] Cholo Dial MD Mixed hyperlipidemia 07/14/2024 11:00 AM EST Office Visit [facility] [address] [place] [address] Clyde Dyer Dental calculus (Primary Dx) 06/25/2024 Telephone [facility] [address] [place] [address] Cholo Dial MD 06/24/2024 Orders Only [facility] [address] [place] [address] Cholo Dial MD 06/11/2024 Refill [facility] [address] [place] [address] Cholo Dial MD Bilateral hip pain 05/12/2024 Orders Only [facility] [address] [place] [address] Cholo Dial MD Bilateral hip pain (Primary Dx) 05/12/2024 Refill [facility] [address] [place] [address] Cholo Dial MD Bilateral hip pain from Last 3 Months Immunizations Name Administration Dates Next Due Influenza injectable quadriv alent IIV4 with preservative 05/19/2019,05/14/2018 Influenza injectable quadrivalent preservative f ree 10/19/2021,06/04/2016 Influenza, High Dose Seasonal, Preservative Free 03/21/2017 Influenza, seasonal, injectable, preservative fr ee 07/03/2022 Pfizer Covid-19 Vaccine 12+ 10/23/2020, Pneumococcal Conjugate PCV 13 10/11/2017 Pneumococcal Polysaccharide PPSV23 06/04/2016 Tdap 06/04/2016,11/16/2014 Zoster, Recombinant 12/31/2023 Zoster, live 10/16/2016 Social History Tobacco Use Types Packs/Day Years Used Date Smoking Tobacco: Never Smokeless Tobacco: Never Tobacco Cessation:Counseling Given: Not Answered Depression Answer Date Recorded Patient Health Questionnaire-9 [...] Orientation Straight 04/16/2022 10 :29 AM EDT Last Filed Vital Signs Vital Sign Reading Time Taken Comments Blood Pressure 100/60 07/29/2024 4:03 PM EST Pulse 65 07/29/2024 4:03 PM EST Temperature 36.2 ??C (97.2 ??F) 08/26/2023 10:55 AM E DT Respiratory Rate 16 08/26/2023 10:55 AM EDT Oxygen Saturation 97% 07/16/2023 11:25 AM EST Inhaled Oxygen Concentration - - Weight 85.7 kg (189 lb) 08/26/2023 10:55 AM EDT Height 162.6 cm (5' 4 ) 08/26/2023 10:55 AM EDT Body Mass Index 32.44 08/26/2023 10:55 AM EDT Plan of Treatment Upcoming Encounters Date Type Department Care Team (Late st Contact Info) Description 08/04/2024 11:00 AM EST Clinical Support [facility] [address] [place] [address] Tatyana Barlow, GEE [address] [place] [address] 08/18/2024 2:00 PM EST Office Visit [facility] OPTOMETRY [address] [place] [address] Sultana Napoles, OD [address] [place] [address] Health Maintenance Due Date Last Done Comments CT Colonography 1950 Colonoscopy 1950 FIT 1950 FOBT 1950 Sigmoidoscopy 1950 Eye Exam 10/18/1959 Alcohol/Substance Use Screening 1961 Hepatitis C Screening 10/18/1967 Diabetes: Urine Protein Screening 1968 COVID-19 Vaccine ( season) 2024 10/23/2020, 09/30/2020 Influenza Vaccine (#1) 2024 , 10/19/2021, 05/19/2019, Additional history exists Zoster Vaccines (3 of 3) 02/25/2024 12/31/2023, 07/2016 Dental Oral Exam 07/10/2024 01/07/2024, 03/2023, 10/20/2021, Additional history exists Depression Screening 08/25/2024 08/26/2023, 08/26/19 Diabetes: Foot Exam 08/25/2024 08/26/2023, 08/26/2023, 08/26/2023, Additional history exists Lipid Panel 08/25/2024 08/26/2023, 07/26/2020 SDOH Screening 08/25/2024 08/26/2023 RSV Patients and Patients Aged 60 years or older (1 - 1-dose 75+ series) 2024 Dental X-Ray: Full Mouth 10/21/2024 10/20/2021, 09/15 Diabetes: Hemoglobin A1C 11/09/20242 024, 08/26/2023, 12/29/2020, Additional history exists Dental X-Ray: Bitewings 01/07/2025 01/07/20 24, 04/26/2023, 10/20/2021, Additional history exists Dental Prophylaxis 01/27/2025 07/29/2024, 0 01/07/2024, 04/26/2023, Additional history exists Tobacco Screening 07/14/2025 07/14/2024 DTaP/Tdap/Td Vaccines (3 - Td or Tdap) 06/04/2026 06/04/2016, 11/16/2014 Mammogram 06/24/2026 06/24/2024, 09/0 08/2023, 12/31/2018, Additional history exists Colorectal Cancer Screening 11/04/2026 FIT DNA/Cologuard 11/04/2026 11/05/2023 Pneumococcal Vaccine: 50+ Years Completed 10/11/2017, 06/04/2016 HIB Vaccines Aged Out No longer eligi ble based on patient's age to complete this topic HPV Vaccines Aged Out No longer eligi ble based on patient's age to complete this topic Hepatitis A Vaccines Aged Out No long er eligible based on patient's age to complete this topic Hepatitis B Vaccines Aged Out No long er eligible based on patient's age to complete this topic IPV Vaccines Aged Out No longer eligi ble based on patient's age to complete this topic Meningococcal Vaccine Aged Out No zohra lamberto eligible based on patient's age to complete this topic RSV under 20 months Aged Out No longe r eligible based on patient's age to complete this topic Rotavirus Vaccines Aged Out No longer eligible based on patient's age to complete this topic Goals Goal Patient Goal Type Associated Problems Recent Progress Patient-Stated? Author Patient will adhere to medication regimen General Worsening(05/2023 4:09 PM EDT) No James Veloz, Jose Guadalupe Note: With assistance from [employer] program Present to lab General Yes Coleman Thakur, Jose Guadalupe Note: Have labs previously ordered drawn Complete Immunizations General Yes Coleman Thakur, Jose Guadalupe Note: Present for scheduled vaccinations Procedures Procedure Name Priority Date/Time Associated Diagnosis Comments ORAL HYGIENE INSTRUCTIONS Routine 07/29/2024 11:00 AM EST Full PROPHYLAXIS - ADULT Routine 07/29/2024 11:00 AM EST CASE PRESENTATION, DETAILED AND EXTENSIVE TREATMENT PLANNING Routine 07/29/2024 11:00 AM EST 3 EXTRACTION, ERUPTED TOOTH OR EXPOSED ROOT (ELEVATION/FORCEPS REMOVAL) Routine 07/29/2024 10:45 AM EST CASE PRESENTATION, DETAILED AND EXTENSIVE TREATMENT PLANNING Routine 07/14/2024 11:00 AM EST PERIODONTAL MAINTENANCE Routine 07/14/2024 11:00 AM EST BI US BREAST LIMITED RIGHT Routine 06/24/2024 2:30 PM EST BI MAMMOGRAM DIAGNOSTIC TOMOSYNTHESIS ADDED VIEW RIGHT Routine 06/24/2024 2:15 PM EST VITAMIN B12 Routine 05/12/2024 1:16 PM EST Bilateral hip pain HEMOGLOBIN A1C Routine 05/12/2024 1:16 PM EST Type 2 diabetes mellitus without complication, without long-term current use of insulin (CMS/HCC) BITEWINGS - 2 RADIOGRAPHIC IMAGES Routine 01/07/2024 10:00 AM EDT PERIODIC ORAL EVALUATION - ESTABLISHED PATIENT Routine 01/07/2024 10:00 AM EDT LAB COLOGUARD?? COLON CANCER SCREEN Routine 11/05/2023 8:25 PM EDT Screening for colon cancer LIPID PANEL, STANDARD Routine 08/26/2023 11:43 AM EDT Type 2 diabetes mellitus without complication, without long-term current use of insulin (CMS/HCC) INTRAORAL - COMPLETE SERIES OF RADIOGRAPHIC IMAGES Routine 10/20/2021 12:00 AM EDT from Last 3 Months or Most Recently Relevant to Health Maintenance Results * BI US Breast Limited Right (06/24/2024 2:30 PM EST) Anatomical Region Laterality Modality Breast Right Ultrasound 06/24/2024 2:30 PM EST Narrative 06/24/2024 3:22 PM EST ? [facility] ? [address] ?[place] [address] ? Ultrasound Report ? Signed ? Patient: Temitope,Comfort ?MR#: [id number] ?? 5 ? : 1950 ?Acct:[id number] ? Age/Sex: 73 / F ?ADM Date: 01/08/25 ? Loc: HO.MAMMO ? Attending Dr: Cholo Willoughby MD ? Ordering Physician: Cholo Dial MD ?? Date of Service: 06/24/24 ?? Procedure(s): US breast RT limited mamm only ?? Accession Number(s): [id number] ? cc: Cholo Dial MD ? EXAMINATION: ?? MM DIAGNOSTIC DIGITAL BREAST TOMOSYNTHESIS, RIGHT ?? Limited right breast ultrasound. ? CLINICAL INFORMATION: ? Comment from screening for asymmetry in the upper outer right breast. ? COMPARISON: ?? Mammography: Comparison is made with available prior examinations. ? TECHNIQUE: ?? Digital breast tomosynthesis is performed in both the craniocaudal and ?? mediolateral oblique views along with computer-aided detection (CAD). ?? Synthesized 2D images are generated from the tomosynthesis. ? Limited right breast ultrasound. ? FINDINGS: ?? There are scattered areas of fibroglandular density (ACR BI-RADS breast ?? composition Category b). ?? Focal asymmetry in the upper outer breast partially effaces the persist ?? on additional imaging projections. No suspicious calcifications or ?? other abnormal findings. ? Targeted color Doppler ultrasound scanning in the entire lateral breast ?? from 7-11 o'clock demonstrates normal fibroglandular breast tissue. ?? There is a normal-appearing intramammary lymph node versus adjacent ?? minimally complicated cyst at 9:00 9 cm from nipple measuring 6 x 3 x 6 ?? mm. This is a questionable correlate for the focal asymmetry ?? There is a simple cyst at 9:00 8 cm from nipple measuring 7 x 3 x 8 mm. ? US/US breast RT limited mamm only ?? IMPRESSION: ? 1. Focal asymmetry in the upper outer quadrant without definite ?? sonographic correlate. Recommend six-month follow-up mammography for ?? further evaluation of stability. ? 2. Normal-appearing intramammary lymph node and simple cyst on ?? ultrasound. Benign. ? ASSESSMENT: ? BI-RADS BI-RADS 3 - Probably benign finding(s) - 6 month follow-up ?? suggested ? RECOMMENDATION: ?? 6 Month F/U ? Results were provided to the patient at time of visit by the ?? technologist. ? This patient's information was entered into a reminder system with a ?? target due date for their next mammogram. ? Electronically signed by: ??Arianna Echevarria DO ??06/24/2024 03:19 PM EST ?? RP ? Dictated By: ?Arianna Echevarria DO ? Signed By: ?<Electronically signed by Arianna Echevarria, in OV> ? 06/24/24 1519 ? DD/ 1430 ? TD/TT: 06/24/24 1448 ? Manager Long Term Care: ? Procedure Note Donotlincolninterpreter, Image - 06/24/2024 [facility] [address] [place] [address] Ultrasound Report Signed Patient: Billy Linn#: [id number] 5 : 1950Acct:[id number] Age/Sex: 73 / FADM Date: 06/24/24 Loc: HO.MAMMO Attending Dr: Cholo Willoughby MD Ordering Physician: Cholo Dial MD Date of Service: 06/24/24 Procedure(s): US breast RT limited mamm only Accession Number(s): [id number] cc: Cholo Dial MD EXAMINATION: MM DIAGNOSTIC DIGITAL BREAST TOMOSYNTHESIS, RIGHT Limited right breast ultrasound. CLINICAL INFORMATION: Comment from screening for asymmetry in the upper outer right breast. COMPARISON: Mammography: Comparison is made with available prior examinations. TECHNIQUE: Digital breast tomosynthesis is performed in both the craniocaudal and mediolateral oblique views along with computer-aided detection (CAD). Synthesized 2D images are generated from the tomosynthesis. Limited right breast ultrasound. FINDINGS: There are scattered areas of fibroglandular density (ACR BI-RADS breast composition Category b). Focal asymmetry in the upper outer breast partially effaces the persist on additional imaging projections. No suspicious calcifications or other abnormal findings. Targeted color Doppler ultrasound scanning in the entire lateral breast from 7-11 o'clock demonstrates normal fibroglandular breast tissue. There is a normal-appearing intramammary lymph node versus adjacent minimally complicated cyst at 9:00 9 cm from nipple measuring 6 x 3 x 6 mm. This is a questionable correlate for the focal asymmetry There is a simple cyst at 9:00 8 cm from nipple measuring 7 x 3 x 8 mm. US/US breast RT limited mamm only IMPRESSION: 1. Focal asymmetry in the upper outer quadrant without definite sonographic correlate. Recommend six-month follow-up mammography for further evaluation of stability. 2. Normal-appearing intramammary lymph node and simple cyst on ultrasound. Benign. ASSESSMENT: BI-RADS BI-RADS 3 - Probably benign finding(s) - 6 month follow-up suggested RECOMMENDATION: 6 Month F/U Results were provided to the patient at time of visit by the technologist. This patient's information was entered into a reminder system with a target due date for their next mammogram. Electronically signed by: Arianna Echevarria DO 06/24/2024 03:19 PM EST RP Dictated By: Arianna Echevarria DO Signed By: <Electronically signed by Arianna Echevarria DO in OV> 06/24/24 1519 DD/ 1430 TD/TT: 06/24/24 1448 Manager Long Term Care: Cholo Willoughby MD [facility] US PROCEDURES Edited Result - Final * BI Mammogram Diagnostic Tomosynthesis added right (06/24/2024 2:15 PM EST) Anatomical Region Laterality Modality Breast Left Mammography 06/24/2024 2:15 PM EST Narrative 06/24/2024 3:22 PM EST ? [facility] ? [address] ?[place] [address] ? Mammography Report ? Signed ? Patient: Temitope,Comfort ?MR#: [id number] ?? 5 ? : 1950 ?Acct:[id number] ? Age/Sex: 73 / F ?ADM Date: 01/08/25 ? Loc: HO.MAMMO ? Attending Dr: Cholo Willoughby MD ? Ordering Physician: Cholo Dial MD ? Results: 3.6MProbably Benign Finding - Short 6 M ?? F/U Suggested ? Date of Service: 06/24/24 ?Follow Up: 6 Month F/U ? Procedure(s): MM tomosynthesis added views R ?? Accession Number(s): [id number] ? cc: Cholo Dial MD ? EXAMINATION: ?? MM DIAGNOSTIC DIGITAL BREAST TOMOSYNTHESIS, RIGHT ?? Limited right breast ultrasound. ? CLINICAL INFORMATION: ? Comment from screening for asymmetry in the upper outer right breast. ? COMPARISON: ?? Mammography: Comparison is made with available prior examinations. ? TECHNIQUE: ?? Digital breast tomosynthesis is performed in both the craniocaudal and ?? mediolateral oblique views along with computer-aided detection (CAD). ?? Synthesized 2D images are generated from the tomosynthesis. ? Limited right breast ultrasound. ? FINDINGS: ?? There are scattered areas of fibroglandular density (ACR BI-RADS breast ?? composition Category b). ?? Focal asymmetry in the upper outer breast partially effaces the persist ?? on additional imaging projections. No suspicious calcifications or ?? other abnormal findings. ? Targeted color Doppler ultrasound scanning in the entire lateral breast ?? from 7-11 o'clock demonstrates normal fibroglandular breast tissue. ?? There is a normal-appearing intramammary lymph node versus adjacent ?? minimally complicated cyst at 9:00 9 cm from nipple measuring 6 x 3 x 6 ?? mm. This is a questionable correlate for the focal asymmetry ?? There is a simple cyst at 9:00 8 cm from nipple measuring 7 x 3 x 8 mm. ? MM/MM tomosynthesis added views R ?? IMPRESSION: ? 1. Focal asymmetry in the upper outer quadrant without definite ?? sonographic correlate. Recommend six-month follow-up mammography for ?? further evaluation of stability. ? 2. Normal-appearing intramammary lymph node and simple cyst on ?? ultrasound. Benign. ? ASSESSMENT: ? BI-RADS BI-RADS 3 - Probably benign finding(s) - 6 month follow-up ?? suggested ? RECOMMENDATION: ?? 6 Month F/U ? Results were provided to the patient at time of visit by the ?? technologist. ? This patient's information was entered into a reminder system with a ?? target due date for their next mammogram. ? Electronically signed by: ??Arianna Echevarria DO ??06/24/2024 03:19 PM EST ? Dictated By: ?Arianna Echevarria DO ? Signed By: ?<Electronically signed by Arianna Tyminski, DO in OV> ? 06/24/24 1519 ? DD/ 1415 ? TD/TT: 06/24/24 1430 ? Manager Long Term Care: ? Procedure Note Leland, Image - 06/24/2024 [facility] [address] [place] [address] [place] [address] Mammography Report Signed Patient: Billy Linn#: [id number] 5 : 1950Acct:[id number] Age/Sex: 73 / FADM Date: 06/24/24 Loc: HO.MAMMO Attending Dr: Cholo Willoughby MD Ordering Physician: Cholo Dial MD Results: 3.6MProbably Benign Finding - Short 6 M F/U Suggested Date of Service: 06/24/24Follow Up: 6 Month F/U Procedure(s): MM tomosynthesis added views R Accession Number(s): [id number] cc: Cholo Dial MD EXAMINATION: MM DIAGNOSTIC DIGITAL BREAST TOMOSYNTHESIS, RIGHT Limited right breast ultrasound. CLINICAL INFORMATION: Comment from screening for asymmetry in the upper outer right breast. COMPARISON: Mammography: Comparison is made with available prior examinations. TECHNIQUE: Digital breast tomosynthesis is performed in both the craniocaudal and mediolateral oblique views along with computer-aided detection (CAD). Synthesized 2D images are generated from the tomosynthesis. Limited right breast ultrasound. FINDINGS: There are scattered areas of fibroglandular density (ACR BI-RADS breast composition Category b). Focal asymmetry in the upper outer breast partially effaces the persist on additional imaging projections. No suspicious calcifications or other abnormal findings. Targeted color Doppler ultrasound scanning in the entire lateral breast from 7-11 o'clock demonstrates normal fibroglandular breast tissue. There is a normal-appearing intramammary lymph node versus adjacent minimally complicated cyst at 9:00 9 cm from nipple measuring 6 x 3 x 6 mm. This is a questionable correlate for the focal asymmetry There is a simple cyst at 9:00 8 cm from nipple measuring 7 x 3 x 8 mm. MM/MM tomosynthesis added views R IMPRESSION: 1. Focal asymmetry in the upper outer quadrant without definite sonographic correlate. Recommend six-month follow-up mammography for further evaluation of stability. 2. Normal-appearing intramammary lymph node and simple cyst on ultrasound. Benign. ASSESSMENT: BI-RADS BI-RADS 3 - Probably benign finding(s) - 6 month follow-up suggested RECOMMENDATION: 6 Month F/U Results were provided to the patient at time of visit by the technologist. This patient's information was entered into a reminder system with a target due date for their next mammogram. Electronically signed by: Arianna Echevarria DO 06/24/2024 03:19 PM [facility] Dictated By: Arianna Echevarria DO Signed By: <Electronically signed by Arianna Echevarria DO in OV> 06/24/24 1519 DD/ 1415 TD/TT: 06/24/24 1430 Manager Long Term Care: us Cholo Willoughby MD IMG BI PROCEDURES Edited Result - Final * (ABNORMAL) Hemoglobin A1c (05/12/2024 1:16 PM EST) Hemoglobin A1c 6.6(H) <6.0 % [facility] Comment:Hemoglobin A1C Refer ence Range Adults: 4.8 - 6.0 % Non diabetic: < 6.0 % Goal: < 7.0 %Additional Action Suggested: > 8.0 %Note: Hemoglobin A1c results are invalid for patients with abnormal amounts of HbF. Blood transfusions may impact the HbA1c concentration in the patient sample. Estimated Average Glucose 143 mg/dL LABS Comment:eAG = Estimated ave rage glucose which is %A1C expressed asaverage glucose, using the formula of the J4H-DixozpdPdxoyzv Glucose study (ADAG), Diabetes Care, Vol.31,#8,Jan. 2007 Blood Venous blood specimen / Unknown 05/12/2024 1:16 PM EST 05/12/2024 2:29 PM EST Cholo Willoughby MD LAB BLOOD ORDERABL ES Final Result Performing Organization Address City/[facility]/ZIP Co de Phone Number LABS [address] [place] [phone] * Vitamin B12 (05/12/2024 1:16 PM EST) Vitamin B12 516 200 - 900 pg/mL LABS Comment:NORMAL 200-900 PG/ML INDETERMINATE 160-199 PG/ML DEFICIENT < 160 PG/ML 05/12/2024 1:16 PM EST 05/12/2024 2:29 PM EST Cholo Willoughby MD LAB BLOOD ORDERABL ES Final Result Performing Organization Address City/[facility]/ZIP Co de Phone Number LABS [address] [place] [phone] * Cologuard?? colon cancer screening (11/05/2023 8:25 PM EDT) [facility] Signature Cologuard Result Negative Negative 11/13/19 24 9:39 AM EDT [facility] (CLIA #:[id number]) Comment: NEGATIVE TEST RESULT. A negative Cologuard result indicates a low likelihood that a colorectal cancer (CRC) or advanced adenoma (adenomatous polyps with more advanced pre-malignant features) ??is present. The chance that a person with a negative Cologuard test has a colorectal cancer is less than 1 in 1500 (negative predictive value >99.9%) or has an ??advanced adenoma is less than ??5.3% (negative predictive value 94.7%). These data are based on a prospective cross-sectional study of 10,000 individuals at average risk for colorectal cancer who were screened with both Cologuard and colonoscopy. (Mike Henning et al, N Engl J Med 2014;370(14):1286- 1297) The normal value (reference range) for this assay is negative. COLOGUARD RE-SCREENING RECOMMENDATION: Periodic colorectal cancer screening is an important part of preventive healthcare for asymptomatic individuals at average risk for colorectal cancer. ??Following a negative Cologuard result, the [place] [employer] Society and U.S. Multi-Society Task Force screening guidelines recommend a Cologuard re-screening interval of 3 years. References: [place] [employer] Guideline for Colorectal Cancer Screening: https://www.cancer.org/cancer/asqaz-jsouzv-fjuipo/yiriajsyj-pqeyfrqqw-aciekye/ac s-rec ommendations.html.; Carlo DK, Sonia CR, Raegan SinclairK, Colorectal Cancer Screening: Recommendations for Physicians and Patients from the U.S. Multi-Society Task Force on Colorectal Cancer Screening , Am J Gastroenterology 2017; 112:6838-8591. TEST DESCRIPTION: Composite algorithmic analysis of stool DNA-biomarkers with hemoglobin immunoassay. ?? Quantitative values of individual biomarkers are not reportable and are not associated with individual biomarker result reference ranges. Cologuard is intended for colorectal cancer screening of adults of either sex, 45 years or older, who are at average-risk for colorectal cancer (CRC). Cologuard has been approved for use by the U.S. FDA. The performance of Cologuard was established in a cross sectional study of average-risk adults aged 50-84. Cologuard performance in patients ages 45 to 49 years was estimated by sub-group analysis of near-age groups. Colonoscopies performed for a positive result may find as the most clinically significant lesion: colorectal cancer [4.0%], advanced adenoma (including sessile serrated polyps greater than or equal to 1cm diameter) [20%] or non- advanced adenoma [31%]; or no colorectal neoplasia [45%]. These estimates are derived from a prospective cross-sectional screening study of 10,000 individuals at average risk for colorectal cancer who were screened with both Cologuard and colonoscopy. (Mike Vitale al, N Engl J Med 2014;370(14):1544-9489.) Cologuard may produce a false negative or false positive result (no colorectal cancer or precancerous polyp present at colonoscopy follow up). A negative Cologuard test result does not guarantee the absence of CRC or advanced adenoma (pre-cancer). The current Cologuard screening interval is every 3 years. ([place] [employer] Society and U.S. Multi-Society Task Force). Cologuard performance data in a 10,000 patient pivotal study using colonoscopy as the reference method can be accessed at the following location: www.[employer]/results. Additional description of the Cologuard test process, warnings and precautions can be found at www.[employer].com. Stool specimen (specimen) 11/05/2023 8:25 PM EDT 11/07/2023 11:55 AM EDT Cholo Willoughby MD LAB MOLECULAR DIAG NOSTICS ORDERABLES Final Result [facility] (CLIA #:[id number]) [address] [place] [address], * (ABNORMAL) Lipid Panel, Standard (08/26/2023 11:43 AM EDT) Triglycerides 91 <150 mg/dL [facility] Comment:Desirable Triglyceri de: less than 150 mg/dLBorderline High Triglyceride 150-199 mg/dLHigh Triglyceride: 200-499 mg/dLVery High Triglyceride: greater than or equal to 5OO mg/dL Cholesterol 134 <200 mg/dL LABS Comment:Desirable Cholestero l: less than 200 mg/dLBorderline High Cholesterol: 200-239 mg/dLHigh Cholesterol: greater than 239 mg/dL LDL Cholesterol Calculated 79 <100 mg/dL LAB[facility] Comment:Desirable LDL: less than 100 mg/dLNear Optimal/Above Optimal LDL: 110- 129 mg/dLBorderline High LDL: 130-159 mg/dLHigh LDL: 160-189 mg/dLVery High LDL: greater than or equal to 190 mg/dL HDL Cholesterol 37(L) >40 mg/dL [facility] Comment:Desirable HDL: great er than 40 mg/dL Note: This HDL assay may give artificially low results in patients with liver disease. Blood Venous blood specimen / Unknown 08/26/2023 11:43 AM EDT 08/26/2023 2:07 PM EDT Cholo Willoughby MD LAB BLOOD ORDERABL ES Final Result LAB[facility] [address] [place] [phone] from Last 3 Months or Most Recently Relevant to Health Maintenance [place] [address] [place] [address] - [facility] Care Teams Brim Welt Sewing Machine Operator Relationship Specialty Start Date End Date Cholo Dial MD [address] [place] [phone] PCP - General Internal Medicine 10/26/19
--- OUTSIDE RECORDS SUMMARY | 2024-07-30 07:57 | XMS_ITS | Encounter Summary ---
Author Organization [employer] Address [address] [facility] [address] [place] [address] Care Team Providers Care Furnace Repairer Name Role Phone Cholo Dial MD Primary Care Prov ider Reason for Visit * Reason Onset Date Comments Durable Medical Equipment 11/22/2022 Encounter Details Date Type Department Care Team ([facility] st Contact Info) Description 11/22/2022 Telephone [facility] [address] [place], [place] [phone] Cholo Dial MD [address] [place] [address] Durable Medical Equipment Social History Tobacco Use Types Packs/Day Years Used Date Smoking Tobacco: Never Assessed Comments Unknown Sex and Gender Information Value Date Recorded Sex Assigned at Female 04/16/2022 10:29 AM EDT Legal Sex Female 10:29 AM EDT Gender Identity Female 04/16/2022 10:29 AM EDT Sexual Orientation Straight 04/16/2022 10 :29 AM EDT documented as of this encounter Miscellaneous Notes * Telephone Encounter - Saida Gray LPN - 11/22/2022 2:40 PM EDT Please read message below and advise * Telephone Encounter - Amarilys Ani - 11/22/2022 2:22 PM EDT Tc from Elsa at [facility] requesting an electric wheel chair . Informs if weight and [place] can be add on script . Fax number [phone]. documented in this encounter Plan of Treatment Upcoming Encounters Date Type Department Care Team (Late st Contact Info) Description 08/04/2024 11:00 AM EST Clinical Support [facility] [address] [place] [address] Tatyana Barlow, RN [address] [place], [place] [phone] 08/18/2024 2:00 PM EST Office Visit [facility] [address] [place] [address] Sultana Napoles, OD [address] [place] [address] documented as of this encounter Visit Diagnoses Not on filedocumented in this encounter Care Teams Furnace Repairer Relationship Specialty Start Date End Date Cholo Dial MD [address] [place] [address] PCP - General Internal Medicine 10/26/19 documented as of this encounter
--- OUTSIDE RECORDS SUMMARY | 2024-07-30 07:57 | XMS_ITS | Encounter Summary ---
Author Organization [employer] Address [address] [facility] [address] [place] [address] Care Team Providers Care Screen Repairer Crusher Name Role Phone Cholo Dial MD Primary Care Prov ider Reason for Visit * Reason Comments Med Refill Encounter Details Date Type Department Care Team ([facility] st Contact Info) Description 07/27/2024 Refill [facility] [address] [place], [place] [phone] Cholo Dial MD [address] [place] [address] Type 2 diabetes mellitus without complication, without long-term current use of insulin ([facility]) Social History Tobacco Use Types Packs/Day Years [...] Upcoming Encounters Date Type Department Care Team ([facility] st Contact Info) Description 08/04/2024 11:00 AM EST Clinical Support [facility] [address] [place] [address] Tatyana Barlow, GEE [address] [place] [address] 08/18/2024 2:00 PM EST Office Visit [facility] [address] [place] [address] Dony, Sultana, OD [address] [place] [address] documented as of this encounter Goals Goal Patient Goal Type Associated Problems Recent Progress Patient-Stated? Author Patient will adhere to medication regimen General Worsening(05/2023 4:09 PM EDT) No James Veloz PharmD Note: With assistance from [employer]enes program Present to lab General Yes Coleman Thakur PharmD Note: Have labs previously ordered drawn Complete Immunizations General Yes Coleman Thakur PharmD Note: Present for scheduled vaccinations documented as of this encounter Visit Diagnoses Diagnosis Type 2 diabetes mellitus without complication, without long-term current use of insulin ([facility]) documented in this encounter Additional Health Concerns Assessment Noted Time PHQ-9 Depression Total Score: 0 08/26/19 24 11:11 AM EDT documented as of this encounter Care Teams Screen Repairer Crusher Relationship Specialty Start Date End Date Cholo Dial MD [address] [place] [phone] PCP - General Internal Medicine 10/26/19 documented as of this encounter
--- OUTSIDE RECORDS SUMMARY | 2024-07-30 07:57 | XMS_ITS | Encounter Summary ---
Author Organization [employer] Address [address] [facility] [address] [place] [address] Care Team Providers Care Erp Programmer Name Role Phone Cholo Dial MD Primary Care Prov ider Encounter Details Date Type Department Care Team (Latest Contact Info) Description 10/20/[address] [facility] CONVERSIONS Dental, Provider, DDS Social History [...] Description 08/04/2024 11:00 AM EST Clinical Support [facility] [address] [place] [address] Tatyana Barlow, GEE [address] [place] [address] 08/18/2024 2:00 PM EST Office Visit [facility] [address] [place] [address] Sultana Napoles, OD [address] [place] [address] documented as of this encounter Visit Diagnoses Not on filedocumented in this encounter Care Teams Erp Programmer Relationship Specialty Start Date End Date Cholo Dial MD [address] [place] [phone] PCP - General Internal Medicine 10/26/19 documented as of this encounter
--- OUTSIDE RECORDS SUMMARY | 2024-07-30 07:57 | XMS_ITS | Encounter Summary ---
Author Organization [employer] Address [address] [facility] [address] [place] [address] Care Team Providers Care Sap Hana Developer Name Role Phone Cholo Dial MD Primary Care Prov ider Encounter Details Date Type Department Care Team (Latest Contact Info) Description 11/21/2020 Abstract [facility] CONVERSIONS Dental, Provider, DDS Social History Tobacco [...] Description 08/04/2024 11:00 AM EST Clinical Support [facility] [address] [place] [address] Tatyana Barlow, GEE [address] [place] [address] 08/18/2024 2:00 PM EST Office Visit [facility] OPTOMETRY [address] [place] [address] Sultana Napoles, OD [address] [place] [address] documented as of this encounter Visit Diagnoses Not on filedocumented in this encounter Care Teams Sap Hana Developer Relationship Specialty Start Date End Date Cholo Dial MD [address] [place] [phone] PCP - General Internal Medicine 10/26/19 documented as of this encounter
--- OUTSIDE RECORDS SUMMARY | 2024-07-30 07:57 | XMS_ITS | Encounter Summary ---
Author Organization [facility] Address [address] [place] [address] Care Team Providers Care Rod Mill Tender Name Role Phone Cholo Dial MD Primary Care Prov ider Encounter Details Date Type Department Care Team (Late st Contact Info) Description 10/23/[address] [address] Jordon Figueroa MD [address] [place] [phone] Social History Tobacco Use Types Packs/Day Years Used Date Smoking Tobacco: Never Assessed Comments Unknown Sex and Gender Information Value Date Recorded Sex Assigned at Not on file Legal Sex Female 7:05 PM EDT Gender Identity Not on file Sexual Orientation Not on file documented as of this encounter Plan of Treatment Upcoming Encounters Date Type Department Care Team (Late st Contact Info) Description 08/06/2024 11:30 AM EST Follow-Up [address] [address] Natasha Rayo MD [address] [place] [address] [phone] Scheduled Procedures Name Priority Associated Diagnoses Date/Ti me CATARACT EXTRACTION WITH INS ERTION OF INTRAOCULAR LENS IMPLANT Nuclear senile cataract of both eyes Glaucoma of both eyes, unspecified glaucoma type TRANSLUMINAL DILATION OF AQU EOUS OUTFLOW CANAL Nuclear senile cataract of both eyes Glaucoma of both eyes, unspecified glaucoma type CATARACT EXTRACTION WITH INS ERTION OF INTRAOCULAR LENS IMPLANT Nuclear senile cataract of both eyes Glaucoma of both eyes, unspecified glaucoma type TRANSLUMINAL DILATION OF AQU EOUS OUTFLOW CANAL Nuclear senile cataract of both eyes Glaucoma of both eyes, unspecified glaucoma type documented as of this encounter Visit Diagnoses Not on filedocumented in this encounter Care Teams Rod Mill Tender Relationship Specialty Start Date End Date Cholo Dial MD [address] [place] [phone] PCP - General 10/07/23 documented as of this encounter
--- OUTSIDE RECORDS SUMMARY | 2024-07-30 07:57 | XMS_ITS | Clinical Summary ---
Author Organization [facility] Address [address] [place] [address] Care Team Providers Care Covering Machine Operator Name Role Phone Cholo Dial MD Primary Care Prov ider Allergies No known active allergies Medications lidocaine (LIDODERM) 5% patch APPLY 1 PATCH TO THE AFFECTED AREA AND LEAVE IN PLACE FOR 12 HOURS, THEN REMOVE AND LEAVE OFF FOR 12 HOURS. 07/31/2016 Active cholecalciferol , vitamin D3, 5,000 unit capsule Take 5,000 Units by mouth daily. 08/21/2016 Active POLYVINYL ALCOHOL (ARTIFICIAL TEARS, POLYVIN ALC, OPHTHALMIC) Instill 1 drop into affected eye(s) 2 times a day. Active amLODIPine (NORVASC) 5 mg tablet Take 5 mg by mouth daily. Active acetaminophen-c odeine (TYLENOL #3) 300-30 mg tablet Take 1 tablet by mouth every 4 hours as needed for moderate pain (pain score 4-6). Active simvastatin (ZOCOR) 10 mg tablet TAKE ONE TABLET EVERY EVENING 2 10/11/2017 Active ARTIFICIAL TEARS, POLYVIN ALC, 1.4 % ophthalmic solution PLACE TWO DROPS IN EACH EYE TWICE DAILY 3 10/30/2017 Active polyethylene glycol 3350 (MIRALAX) 17 gram packet mix ONE PACKET in FOUR TO EIGHT OUNCE of WATER, JUICE, coffee OR tea AND drink ONCE DAILY 14 packet 3 05/14/2018 Active melatonin 3 mg tablet TAKE ONE TABLET AT BEDTIME 30 tablet 5 02/18/[address] (CYMBALTA) 60 mg capsule Take 60 mg by mouth daily. 11 02/17/2019 Active VOLTAREN 1 % gel apply (2G) by topical route 4 times every day to the affected area(s) 11 02/17/2019 Active oxybutynin XL (DITROPAN XL) 10 mg tablet Take 10 mg by mouth daily. 11 02/17/2019 Active senna (SENOKOT) 8.6 mg tablet Take 1 tablet (8.6 mg total) by mouth 2 times a day as needed for constipation. 60 tablet 02/18/2019 Active docusate sodium (COLACE) 50 mg capsule Take 2 capsules (100 mg total) by mouth 3 times a day as needed for constipation. 60 capsule 02/18/2019 Active carbidopa-levod opa (SINEMET) 25-100 mg per tablet Take 1 tablet by mouth 2 times daily. 07/31/2023 Active ibuprofen (MOTRIN) 800 mg tablet SMARTSI Tablet(s) By Mouth 03/10/2024 Active metFORMIN (GLUCOPHAGE) 500 mg tablet SMARTSI Tablet(s) By Mouth Morning-Night Active Myrbetriq 50 mg tablet SMARTSI Tablet(s) By Mouth Every Night 03/06/2024 Active ondansetron (ZOFRAN) 4 mg tablet SMARTSI Tablet(s) By Mouth Every 8 Hours PRN 08/26/2023 Active Neupro 1 mg/24 hour patch APPLY ONE PATCH EVERY DAY 07/04/2023 Active latanoprost (XALATAN) 0.005% ophthalmic solution Instill 1 drop into both eyes nightly. 2.5 mL 5 04/03/2024 Active timolol (TIMOPTIC) 0.5% ophthalmic solution Instill 1 drop into both eyes 2 times a day. 10 mL 5 04/03/2024 Active Hospital, Clinic, or Other Facility Administered Medication Ordered Dose Route Frequency Start Date End Date Status oxyCODONE IR (ROXICODONE) tablet 5 mg 5 mg oral Every 4 hours PRN 04/15/2017 Active Active Problems Problem Noted Date Diagnosed Date Bilateral headaches 11/25/2017 Overview (11/25/2017): Bilateral, episodic, tension-like headache. No signs or symptoms to support migraine or temporal arteritis headache. ESR will be sent for confirmation. She was advised to take OTC medications for that. Left hip pain 05/07/2017 Overview (05/07/2017): July 2016: Left hip intra-articular cortisone injection under ultrasound guidance with limited efficacy Assessment & Plan (05/07/2017 11:39 AM EST): Left hip pain, nonspecific; worsening -Defer ongoing chronic pain regimen to her primary doctor. -Recommended to daughter and patient to seek regular behavioral health follow-up when dealing with chronic pain particularly with the nature of the pain being both isolating and debilitating. Discussed the patient's flat affect as well as the role that mood/neurotransmitter abnormalities can play in modulating her pain. -After extensive review of left hip imaging and in light of the lack of significant response to a prior intra-articular cortisone injection, the MRI findings are unlikely to correlate with her left hip pain. Differential diagnosis has included gluteus medius tendinosis, proximal hamstring tendinosis and hip osteoarthritis. However, these MRI and physical exam findings do not effectively correlate with the subjective report of debilitating pain. -We recommend evaluation of possible spine etiology of her left hip pain due to the report of heaviness with walking and reliable fatigability with worsening of her pain with prolonged standing or walking. -Referral to ambulatory spine center following x-ray of the lumbar spine. Chronic low back pain without sciatica 7 Assessment & Plan (05/07/2017 11:34 AM EST): See left hip pain Lumbar x-ray to evaluate for spine etiology of pain Ambulatory referral to the spine center for consultation Other specified glaucoma 05/07/2017 Combined forms of age-related cataract of both e yes 05/07/2017 BRVO (branch retinal vein occlusion) 05/07/2017 Parkinson disease 04/15/2017 Overview (11/25/2017): TP IPD since 2015, Dx in 01/2017. [...] provided instructions for RBD and constipation treatment. 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 10/23/2016 Ovarian cyst 10/11/2015 Resolved Problems Problem Noted Date Diagnosed Date Resolved Date Trochanteric bursitis of left hip 06/04/2016 05/07/2017 Acute pain of left hip 10/31/201505/07 Family History Medical History Relation Name Comments Other Mother No pertinent fa mushtaq history Other Other Family History of diabetes mellitus Relation Name Status Comments Mother Other Social History Tobacco Use Types Packs/Day Years Used Date Smoking Tobacco: Never Smokeless Tobacco: Never Comments:: Alcohol Use Standard Drinks/Week Comments No 0 (1 standard drink = 0.6 oz pur e alcohol) Comments Unknown Sex and Gender Information Value Date Recorded Sex Assigned at Not on file Legal Sex Female 7:05 PM EDT Gender Identity Not on file Sexual Orientation Not on file Occupation Industry Job Start Date Job End Date home Not on file Not on file Not on file Last Filed Vital Signs Vital Sign Reading Time Taken Comments Blood Pressure 134/74 04/13/2020 3:56 PM EDT Pulse 74 04/13/2020 3:56 PM EDT Temperature 36.9 ??C (98.4 ??F) 02/18/2019 3:28 PM ED T Respiratory Rate 16 04/13/2020 3:56 PM EDT Oxygen Saturation - - Inhaled Oxygen Concentration - - Weight 79.4 kg (175 lb) 02/18/2019 3:28 PM EDT Height 165.1 cm (5' 5 ) 04/13/2020 3:56 PM EDT Body Mass Index 29.12 02/18/2019 3:28 PM EDT Plan of Treatment Upcoming Encounters Date Type Department Care Team (Late st Contact Info) Description 08/06/2024 11:30 AM EST Follow-Up [facility] [address] [place] [id number] Natasha Rayo MD [address] [place] [phone] Scheduled Procedures Name Priority Associated Diagnoses Date/Ti [...] Glaucoma of both eyes, unspecified glaucoma type Health Maintenance Due Date Last Done Comments FOBT / Fit Test 1950 Hepatitis C Screening 1950 Sigmoidoscopy 1950 Osteoporosis Screening 10/18/1999 Mammogram 12/31/2020 12/31/2018, 10/18/2017 COVID-19 Vaccine ( season) 2024 10/23/2020, 09/30/2020 Influenza Vaccine (#1) 2024 , 10/19/2021, 05/19/2019, Additional history exists Zoster Vaccines (3 of 3) 02/25/2024 12/31/2023, 07/2016 Alcohol/Substance Use Screening 06/17/2024 Depression Screening and Follow-Up 06/17/2024 Health Care Proxy Review 06/17/2024 Social Drivers of Health Annual Screening 06/17/2024 RSV Vaccine (60+ years old and patients) (1 - 1-dose 75+ series) 2024 DTaP,Tdap,and Td Vaccines (3 - Td or Tdap) 06/04/2026 06/04/2016, 11/16/2014 Cologuard 11/04/2026 11/05/2023 Colon Cancer Screening 11/06/2026 Colonoscopy 11/06/2026 11/06/2016 Pneumococcal Vaccine: 50+ Years Completed 10/11/2017, 06/04/2016 Hepatitis B Vaccines Aged Out No long er eligible based on patient's age to complete this topic Procedures * Due to [place] [employer] law, this organization might not be sharing negative HIV tests. Procedure Name Priority Date/Time Associated Diagnosis Comments COLONOSCOPY 11/06/2016 12:37 PM EDT from Last 3 Months or Most Recently Relevant to Health Maintenance Results * Due to [place] [employer] law, this organization might not be sharing negative HIV tests. * COLONOSCOPY (11/06/2016 12:37 PM EDT) Narrative Procedure Note Jordon Huddleston MD - 11/06/2016 12:37 PM EDT Patient Name: Comfort Temitope Procedure Date: 11/06/2016 12:37 PM Date of : 1950 Age: 66 Room: Procedure Room 1 Gender: Female Note Status: Finalized Attending MD: Jordon Huddleston MD Procedure: Colonoscopy Indications: Screening for colorectal malignant neoplasm Providers: Jordon Huddleston MD Referring MD: Barbara Dennis (Referring MD) Requesting Provider: Medicines: Monitored Anesthesia Care Complications: No immediate complications. Procedure: After I obtained informed consent, the scope was passed under direct vision. Throughout the procedure, the patient's blood pressure, pulse, and oxygen saturations were monitored continuously. The Colonoscope was introduced through the anus and advanced to theileocecal valve. The quality of the bowel preparation wasadequate to identify polyps 6 mm and larger in size. The bowel preparation used was CoLyte. Findings: The perianal and digital rectal examinations were normal. The entire examined colon appeared normal on direct and retroflexion views. Impression: - The entire examined colon is normal on direct and retroflexion views. - No specimens collected. Recommendation: - Discharge patient to home (ambulatory). OTHER - Repeat colonoscopy is not recommended. Jordon Huddleston MD 11/06/2016 1:47:24 PM This report has been signed electronically. Number of Addenda: 0 Note Initiated On: 11/06/2016 12:37 PM Estimated Blood Loss: Estimated blood loss: none. us Jordon Huddleston MD PROVATION PROCEDURES Final Resu lt from Last 3 Months or Most Recently Relevant to Health Maintenance Insurance [facility] [id number] Care Teams Covering Machine Operator Relationship Specialty Start Date End Date Cholo Dial MD [address] [place] [address] PCP - General 10/07/23
--- OUTSIDE RECORDS SUMMARY | 2024-07-30 07:57 | XMS_ITS | Encounter Summary ---
Author Organization [employer] Address [address] [facility] 7[address] [place] [address] Care Team Providers Care Industrial Cleaning Technician Name Role Phone Cholo Dial MD Primary Care Prov ider Reason for Visit * Reason Comments Routine Cleaning Encounter Details Date Type Department Care Team ([facility] st Contact Info) Description 07/14/2024 11:00 AM EST Office Visit [facility] ADULT DENTAL [address] [place] [address] Clyde Dyer Dental calculus (Primary Dx) Social [...] Sign Reading Time Taken Comments Blood Pressure 130/70 07/14/2024 11:07 AM EST Pulse 70 07/14/2024 11:07 AM EST Temperature - - Respiratory Rate - - Oxygen Saturation - - Inhaled Oxygen Concentration - - Weight - - Height - - Body Mass Index - - documented in this encounter Progress Notes * Clyde Dyer - 07/14/2024 11:00 AM EST Patient ID: Lin Linn is a 73 y.o. female. Time Out: Timeout Date: 07/14/24, Timeout Time: 1108 Location: [facility] Tooth: Maxilla and Mandible Procedure: Prophylaxis Verified the above with patient, blood bank assistant, and provider. Confirmed via patient's chart, intraorally and by radiographs. Yarn Spooler: not applicable Medical Hx: Vitals: Blood pressure 130/70, pulse 70. Medications, Med Hx reviewed with patient and updated in chart. Treatment Provided Dental procedures in this visit D4910 - PERIODONTAL MAINTENANCE (Completed) Service provider: Clyde Mckinney provider: Lenora Harrison DDS D9450 - ADJUNCTIVE GENERAL SERVICES - PROFESSIONAL VISITS - CASE PRESENTATION, SUBSEQUENT TO DETAILED AND EXTENSIVE TREATMENT PLANNING (Completed) Service provider: Clyde Dyer Billnain provider: Lenora Harrison DDS Instruments Used: Ultrasonic Scalers Fluoride: N/A Oral Cancer Screening: No lesions Head/Neck Exam: No Lesions Calculus: Moderate, Generalized, and Subgingival Plaque: Moderate and Generalized Stain: Light and Generalized Bleeding: Moderate and Generalized Gingiva: Bleeding on probing OH: Poor Perio Chart: Not Completed Oral hygiene instructions provided to patient including brushing technique and flossing. Recommendations: [place] two times daily, modified hilliard technique, Floss daily Recall Frequency: 6 mo NV: 6mr Hygienist: Clyde Dyer RDH documented in this encounter Plan of Treatment Upcoming Encounters Date Type Department Care Team (Late st Contact Info) Description 08/04/2024 11:00 AM EST Clinical Support [facility] MED [facility] PEDS [address] [place] [address] Tatyana Barlow RN [address] [place], [place] [phone] 08/18/2024 2:00 PM EST Office Visit [facility] OPTOMETRY [address] [place], [place] [phone] DoynSultana proctor, OD [address] [place] [address] documented as of this encounter Goals Goal Patient Goal Type Associated Problems Recent Progress Patient-Stated? Author Patient will adhere to medication regimen General Worsening(05/2023 4:09 PM EDT) No James Veloz, Jose Guadalupe Note: With assistance from [employer] program Present to lab General Yes Coleman Thakur, Jose Guadalupe Note: Have labs previously ordered drawn Complete Immunizations General Yes Coleman Thakur, Jose Guadalupe Note: Present for scheduled vaccinations documented as of this encounter Procedures Procedure Name Priority Date/Time Associated Diagnosis Comments PERIODONTAL MAINTENANCE Routine 07/14/19 25 11:00 AM EST CASE PRESENTATION, DETAILED AND EXTENSIVE TREATMENT PLANNING Routine 07/14/2024 11:00 AM EST documented in this encounter Visit Diagnoses Diagnosis Dental calculus- Primary Accretions on teeth documented in this encounter Additional Health Concerns Assessment Noted Time PHQ-9 Depression Total Score: 0 08/26/19 24 11:11 AM EDT documented as of this encounter Care Teams Industrial Cleaning Technician Relationship Specialty Start Date End Date Cholo Dial MD [address] [place] [address] PCP - General Internal Medicine 10/26/19 documented as of this encounter
--- OUTSIDE RECORDS SUMMARY | 2024-07-30 07:57 | XMS_ITS | Referral Summary ---
Author Organization [facility] Address [address] [place] [address] Care Team Providers Care Calender Operator Name Role Phone Cholo Dial MD [...] 05/07/2017 Acute pain of left hip 10/31/201505/07 Social History Tobacco Use Types Packs/Day Years [...] [facility] [address] [place] [phone] Natasha Rayo MD [address] [place] [phone] Scheduled Procedures Name Priority Associated Diagnoses Date/Ti [...] Glaucoma of both eyes, unspecified glaucoma type Procedures * Due to [place] [employer] law, this organization might not be sharing negative HIV tests. Procedure Name Priority Date/Time Associated Diagnosis Comments COLONOSCOPY 11/06/2016 12:37 PM EDT from Last 3 Months or Most Recently Relevant to Health Maintenance Results * Due to [place] [employer] law, this organization might not be sharing [...] Huddleston MD Referring MD: Barbara Dennis (Referring ) Requesting Provider: Medicines: Monitored Anesthesia Care Complications: [...] Most Recently Relevant to Health Maintenance Insurance [facility] Care Teams Calender Operator Relationship Specialty Start Date End Date Cholo Dial MD [address] [place] [phone] PCP - General 10/07/23
--- OUTSIDE RECORDS SUMMARY | 2024-07-30 07:57 | XMS_ITS | Encounter Summary ---
Author Organization [employer] Address [address] [facility] 7t [place] [address] Care Team Providers Care Human Resource Statistician Name Role Phone Cholo Dial MD Primary Care Prov ider Reason for Visit * Reason Comments Extraction Encounter Details Date Type Department Care Team ([facility] Contact Info) Description 07/29/2024 10:45 AM EST Office Visit [facility] ADULT DENTAL [address] [place], [place] [phone] Ward Arango [address] [place] [address] Social History Tobacco Use Types Packs/Day Years [...] Time Taken Comments Blood Pressure 100/60 07/29/2024 11:39 AM EST Pulse - - Temperature - - Respiratory Rate - - Oxygen Saturation - - Inhaled Oxygen Concentration - - Weight - - Height - - Body Mass Index - - documented in this encounter Progress Notes * Ward Arango - 07/29/2024 10:45 AM EST Dental procedures in this visit D7140 - EXTRACTION, ERUPTED TOOTH OR EXPOSED ROOT (ELEVATION AND/OR FORCEPS REMOVAL) 3 (Completed) Service provider: Ward Arango Billing provider: Jack Milner DMD Patient ID: Lin Linn is a 73 y.o. female. Time Out: Date: 07/29/2024 Location: [facility] Tooth: #3 Procedure: Extraction Verified the above with patient, family medicine physician assistant, and provider. Confirmed via patient's chart, intraorally and by radiographs. Project Developer: not applicable Simple Extraction of # [address] [place] by Dr[address] Ward Arango Risk, benefits, and alternatives discussed with the patient. CONSENT FORM INITIALED & SIGNED BY THE PATIENT AND COUNTERSIGNED BY Dr. Ward Arango Medical history: Reviewed in EHR Vitals: Blood pressure 100/60. Allergies: Reviewed in EHR Medications: Reviewed in EHR - LA: 20% topical benzocaine; Local infiltration with 1 carpule 4% septocaine/articaine 1:100,000 epinephrine - Gingival fibers using periosteal elevator. - Tooth luxated using straight elevator. - Tooth extracted using: Forceps - Curettage done. - Area checked for sharp bony edges / filing of sharp bony edges done. - Hemostasis achieved before dismissal. Patient comfortable to walk. - Gauze pack placed. - post op instructions (written + verbal), extra pack of gauze given. - Rx: Amox/Acetaminophen Patient satisfied, left in stable condition NV: F/U Provider: Dr. Ward Arango Priming Powder Premix Blender: Tamanna Lagos Supervising Dentist: Dr. Harrison * Jack Milner DMD - 07/29/2024 10:45 AM EST I saw and evaluated the patient, participating in the johnson portions of the service. I reviewed the resident???s note. I agree with the resident???s findings and plan. Jack Milner DMD documented in this encounter Plan of Treatment Upcoming Encounters Date Type Department Care Team (Late st Contact Info) Description 08/04/2024 11:00 AM EST Clinical Support [facility] CHC MED & PEDS [address] [place] [address] Tatyana Barlow, GEE [address] [place] [address] 08/18/2024 2:00 PM EST Office Visit [facility] OPTOMETRY [address] [place] [address] Dony, Megan, OD [address] [place] [address] documented as of this encounter Goals Goal Patient Goal Type Associated Problems Recent Progress Patient-Stated? Author Patient will adhere to medication regimen General Worsening(05/2023 4:09 PM EDT) No James Veloz PharmD Note: With assistance from [employer] program Present to lab General Yes Coleman Thakur PharmD Note: Have labs previously ordered drawn Complete Immunizations General Yes Coleman Thakur PharmD Note: Present for scheduled vaccinations documented as of this encounter Procedures Procedure Name Priority Date/Time Associated Diagnosis Comments 3 EXTRACTION, ERUPTED TOOTH OR EXPOSED ROOT (ELEVATION/FORCEPS REMOVAL) Routine 07/29/2024 10:45 AM EST documented in this encounter Visit Diagnoses Not on filedocumented in this encounter Additional Health Concerns Assessment Noted Time PHQ-9 Depression Total Score: 0 08/26/19 24 11:11 AM EDT documented as of this encounter Care Teams Human Resource Statistician Relationship Specialty Start Date End Date Cholo Dial MD [address] [place] [phone] PCP - General Internal Medicine 10/26/19 documented as of this encounter
--- OUTSIDE RECORDS SUMMARY | 2024-07-30 07:57 | XMS_ITS | Encounter Summary ---
Author Organization [employer] Address [address] [facility] 7t [place] [address] Care Team Providers Care Industrial Arts Teacher Name Role Phone Cholo Dial MD Primary Care Prov ider Encounter Details Date Type Department Care Team (Late st Contact Info) Description 05/12/2024 Orders Only [facility] CHC MED & PEDS [address] [place], [place] [phone] Cholo Dial MD [address] [place], [place] [phone] Bilateral hip pain (Primary Dx) Social History Tobacco Use Types [...] Description 08/04/2024 11:00 AM EST Clinical Support [facility] CHC MED & PEDS [address] [place] [address] Tatyana Barlow, RN [address] [place] [address] 08/18/2024 2:00 PM EST Office Visit [facility] OPTOMETRY [address] [place] [address] DonySultana, OD [address] [place] [address] documented as of this encounter Goals Goal Patient Goal Type Associated Problems Recent Progress Patient-Stated? Author Patient will adhere to medication regimen General Worsening(05/2023 4:09 PM EDT) No James Veloz PharmD Note: With assistance from [employer] program Present to lab General Yes Coleman Thakur PharmD Note: Have labs previously ordered drawn Complete Immunizations General Yes Coleman Thakur PharmD Note: Present for scheduled vaccinations documented as of this encounter Procedures Procedure Name Priority Date/Time Associated Diagnosis Comments VITAMIN B12 Routine 05/12/2024 1:16 PM EST Bilateral hip pain documented in this encounter Results * Vitamin B12 (05/12/2024 1:16 PM EST) Vitamin B12 516 200 - 900 pg/mL [facility] Comment:NORMAL 200-900 PG/ML INDETERMINATE 160-199 PG/ML DEFICIENT < 160 PG/ML 05/12/2024 1:16 PM EST 05/12/2024 2:29 PM EST us Cholo Willoughby MD LAB BLOOD ORDERABL ES Final Result [facility] [address] [place] [address] [phone] documented in this encounter Visit Diagnoses Diagnosis Bilateral hip pain- Primary Pain in joint, pelvic region and thigh documented in this encounter Additional Health Concerns Assessment Noted Time PHQ-9 Depression Total Score: 0 08/26/19 24 11:11 AM EDT documented as of this encounter Care Teams Industrial Arts Teacher Relationship Specialty Start Date End Date Cholo Dial MD [address] [place] [phone] PCP - General Internal Medicine 10/26/19 documented as of this encounter
--- OUTSIDE RECORDS SUMMARY | 2024-07-30 07:57 | XMS_ITS | Encounter Summary ---
Author Organization [employer] Address [address] [facility] [address] [place] [address] Care Team Providers Care Hereditary Cancer Program Coordinator Name Role Phone Cholo Dial MD Primary Care Prov ider Reason for Visit * Reason Onset Date Comments Call Back Request 07/02/2023 Encounter Details Date Type Department Care Team ([facility] st Contact Info) Description 07/02/[address] [facility] CHC MED & PEDS [address] [place], [place] [phone] Cholo Dial MD [address] [place] [address] Call Back Request Social History Tobacco Use Types Packs/Day Years [...] encounter Miscellaneous Notes * Telephone Encounter - Elisabeth Mejía RN - 07/03/2023 2:35 PM EST Returned call to Santos at [facility] regarding VO. Informed Santos PCP ok for VO for PT/OT at home. Santos agrees with plan. * Telephone Encounter - Elisabeth Mejía RN - 07/02/2023 2:57 PM EST Pt has not been seen by PCP since 10/2021 multiple cancellations and no shows. [facility] would like [facility] care. Please advise if you would be willing to sign orders although you have not seen pt in almost 2 years? * Telephone Encounter - Susan Duglas - 07/02/2023 2:32 PM EST Tc from [facility] with [facility] would like to know if PCP will sign home care orders. Pt is currently admitted in [facility] for severe UTI. Please contact santos at [phone] documented in this encounter Plan of Treatment Upcoming Encounters Date Type Department Care Team (Late st Contact Info) Description 08/04/2024 11:00 AM EST Clinical Support [facility] CHC MED & PEDS [address] [place] [address] Tatyana Barlow RN [address] [place] [address] 08/18/2024 2:00 PM EST Office Visit [facility] OPTOMETRY [address] [place] [address] Sultana Napoles, OD [address] [place] [address] documented as of this encounter Goals Goal Patient Goal Type Associated Problems Recent Progress Patient-Stated? Author Patient will adhere to medication regimen General Worsening(05/2023 4:09 PM EDT) No James Veloz, YazminD Note: With assistance from [employer] program documented as of this encounter Visit Diagnoses Not on filedocumented in this encounter Care Teams Hereditary Cancer Program Coordinator Relationship Specialty Start Date End Date Cholo Dial MD [address] [place] [address] PCP - General Internal Medicine 10/26/19 documented as of this encounter
== END 2024-07-30 13:09 | disposition home or self-care (01) ==
LOC: HO.HUSH 07:54
PROVIDERS: Visit Provider Urology
DX: N39.41 Urge incontinence (principal); N32.81 Overactive bladder
CPT/HCPCS: 99213

== ENCOUNTER 2024-10-20 10:00 | Outpatient (AMB) | payer OTHER, SELFPAY ==
--- NOTE | 2024-10-20 11:02 | MHC.OFFVIS ---
Intake Visit Reasons: OAB FU Intake Note: Patient is present for a follow up/OAB Urology Medications: mybertiq Blood thinners: none PVR:0ml Facility Attendant Required: No Accompanied by: Daughter Allergies No Known Allergies Allergy (Verified 10/20/24 11:09) Medication List - Last Reconciled 10/20/24 by Randell Styles MD alendronate 70 mg PO QWEEK amantadine HCl mg PO amlodipine 5 mg PO DAILY carbidopa-levodopa 25-100 mg ER tabs PO cholecalciferol (vitamin D3) 250 mcg (2 x 125 mcg (5,000 unit)) PO DAILY 30 days ibuprofen 800 mg PO Q8H PRN latanoprost 0.005% 1 drp ophthalmic (eye) DAILY metformin mg PO mirabegron ER (Myrbetriq) 50 mg PO DAILY ondansetron HCl 4 mg PO BID PRN polyethylene glycol 3350 17 grams PO DAILY PRN [rolling walker As directed] rosuvastatin 5 mg PO DAILY timolol maleate 0.5% 1 drp ophthalmic (eye) DAILY tramadol 50 mg PO Q6H PRN HPI Comments Details: 10/20/24--74-year-old female presenting for fu OAB. H/o Parkinson's. She is here with her daughter who states the urine had a strong odor. Recently, she noticed a strong smell in her urine but did not report other associated symptoms such as pain or discomfort during urination. UA results today note inflammatory cells but were nitrite negative, raising questions about an infection, necessitating a urine culture for confirmation. Her previous medication for a bladder condition is in place. Plan to address possible urinary tract infection, a urine sample will be sent for culture. Based on symptoms and the conversation, empirical antibiotics may be started pending culture results to prevent delay in treatment. Refills for her bladder medication were confirmed, and the importance of hydration was emphasized. The pt's daughter wants to wait on urine culture results before starting antibiotics. 07/30/24--Telehealth follow, patient with her daughter states Myrbetriq has significantly improved LUTS Denies UTI symptoms. 06/28/22--70-year-old female here with her daughter.? She is a nonsmoker.? followed for OAB with LUTS urinary frequency and urge incontinence Daughter reports that the patient has a good appetite and does have issues with constipation She reports good water intake on a daily basis. ? She is on oxybutynin with continued leaking episodes Evaluaiton today: Urinalysis no signs of infection, bladder scan PVR 0 mL Plan replace oxybutynin-prescription for Myrbetriq 50 mg daily ? [facility] Medical History Parkinson disease Hyperparathyroidism Osteoporosis Arthropathy of lumbar facet joint Low back pain Surgical History No pertinent past surgical history Family History Father No problems noted. Mother No problems noted. Social History Household Members: Children Household Members Other:: daughter Alcohol intake: never Patient Tobacco Use Status: Never used Tobacco Current occupational status: disabled Current occupation: Rt handed Review of Systems Const All systems reviewed & are unremarkable except as noted in HPI and below Reports no additional complaints Eyes Reports no additional complaints ENT Reports no additional complaints Card Reports no additional complaints Resp Reports no additional complaints GI Reports no additional complaints Reports as per HPI Musc Reports no additional complaints Skin/Breast Reports system reviewed and no additional complaints, except as documented Neuro Reports no additional complaints Psych Reports no additional complaints Endo Reports no additional complaints Zaid/Lymph Reports no additional complaints Aller/Immun Reports no additional complaints Office Procedures Post Void Residual Post Residual Void Post Void Residual (PVR): 0 37473-Oumc Void Residual by ultrasound Results AMB Urinalysis, Automated UA Leukoctes 70 Liz/uL Last Edit by Reta Neff on 10/20/24 11:56 UA Nitrite Negative Last Edit by Reta Neff on 10/20/24 11:56 UA Urobilinogen 1 mg/dL Last Edit by Reta Neff on 10/20/24 11:56 UA Protein 30 mg/dL Last Edit by Reta Neff on 10/20/24 11:56 UA pH 6.5 Last Edit by Reta Neff on 10/20/24 11:56 UA Blood 0 Vern/uL Last Edit by Reta Neff on 10/20/24 11:56 UA Specific Carmine 1.015 Last Edit by Reta Neff on 10/20/24 11:56 UA Ketone Positive Last Edit by Reta Neff on 10/20/24 11:56 UA Bilirubin 1 mg/dL Last Edit by Reta Neff on 10/20/24 11:56 UA Glucose 0 mg/dL Last Edit by Reta Neff on 10/20/24 11:56 Results Reviewed Results Reviewed: Laboratory Last Values Urine pH (Auto) 6.5 10/20/24 11:52 Specific Carmine (Auto) 1.015 10/20/24 11:52 Urine Protein (Auto) 30 mg/dL 10/20/24 11:52 Glucose (UA)(Auto) 0 mg/dL 10/20/24 11:52 Urine Ketones (Auto) Positive 10/20/24 11:52 Urine Blood (Auto) 0 Vern/uL 10/20/24 11:52 Urine Nitrite (Auto) Negative 10/20/24 11:52 Urine Bilirubin (Auto) 1 mg/dL 10/20/24 11:52 Urine Urobilinogen (Auto) 1 mg/dL 10/20/24 11:52 Leukocyte Esterase (Auto) 70 Liz/uL 10/20/24 11:52 Assessment & Plan Assessment & Plan (1) Urgency incontinence: Code(s): N39.41 - Urge incontinence Category: Medical (2) OAB (overactive bladder): Code(s): N32.81 - Overactive bladder Category: Medical (3) UTI symptoms: Code(s): R39.9 - Unspecified symptoms and signs involving the genitourinary system Category: Medical (4) Parkinson disease: Code(s): G20 - Parkinson's disease Category: Medical Plan Cont. Myrbetriq 50 mg daily. Urine c/s. Orders: Orders AMB Urinalysis Automated 10/20/24 Z13.9 - Encounter for screening, unspecified Medications: Refilled mirabegron ER (Myrbetriq) 50 mg PO DAILY 90 tabs 3RF Patient Instructions: The patient had an opportunity to ask questions regarding treatment plan. The patient expressed understanding and agreement with the above treatment plan. The patient is aware they should contact our office by phone for worsening of their current condition or the appearance of new symptoms. Compliance is encouraged with any medications and followup testing that is ordered. It is a privilege to be allowed the opportunity to participate in the urologic care of your patient. If you have any questions or concerns regarding treatment for the above conditions please do not hesitate to contact me. The office telephone contact is [phone]. This note is constructed in part using voice recognition software. While every effort has been made to ensure accuracy space studies faculty member errors may have been included. Yours sincerely, Randell Styles MD Scribe Plan - Not visible on output: Patient was informed and verbally consented to the use of an ambient scribe for clinic note documentation during this visit. Coding Level of Care Code Complex EM visit Add On G2211 Diagnoses Urgency incontinence N39.41 OAB (overactive bladder) N32.81 UTI symptoms R39.9 Parkinson disease G20 CPT Codes Post Residual Void - PVR CPT Code: 16334-Dode Void Residual by ultrasound ([id number])
--- OUTSIDE RECORDS SUMMARY | 2024-10-20 11:25 | XMS_ITS | Encounter Summary ---
Author Organization [employer] [facility] Address [address] [facility] [address] [place] [address] Care Team Providers Care Rehabilitation Worker Name Role Phone Cholo Dial MD Primary Care Prov ider Encounter Details Date Type Department Care Team (Latest Contact Info) Description 10/20/2021 Abstract [facility] CONVERSIONS Dental, Provider, DDS Social History Tobacco [...] Care Team (Late st Contact Info) Description 12/29/2024 11:30 AM EDT Office Visit [facility] CHC MED & PEDS [address] [place] [address] Cholo Dial MD [address] [place] [address] documented as of this encounter Visit Diagnoses Not on filedocumented in this encounter Care Teams Rehabilitation Worker Relationship Specialty Start Date End Date Cholo Dial MD [address] [place] [address] PCP - General Internal Medicine 10/26/19 documented as of this encounter
--- OUTSIDE RECORDS SUMMARY | 2024-10-20 11:25 | XMS_ITS | Encounter Summary ---
Author Organization [employer] Address [address] [facility] 7 [place] [address] Care Team Providers Care Air Traffic Control Specialist Center Name Role Phone Cholo Dial MD Primary Care Prov ider Reason for Visit * Reason Onset Date Comments Durable Medical Equipment 11/22/2022 Encounter Details Date Type Department Care Team ([facility] st Contact Info) Description 11/22/2022 Telephone [facility] CHC MED & PEDS [address] [place], [place] [phone] Cholo Dial MD [address] [place], [place] [phone] Durable Medical Equipment Social History Tobacco Use [...] and advise * Telephone Encounter - Amarilys Law - 11/22/2022 2:22 PM EDT Tc from [facility] requesting an electric wheel chair . Informs if weight and [place] can be add on script . Fax number [phone]. documented in this encounter Plan of Treatment Upcoming Encounters Date Type Department Care Team ([facility] st Contact Info) Description 12/29/2024 11:30 AM EDT Office Visit [facility] MED & PEDS [address] [place] [address] Cholo Dial MD [address] [place] [address] documented as of this encounter Visit Diagnoses Not on filedocumented in this encounter Care Teams Air Traffic Control Specialist Center Relationship Specialty Start Date End Date Cholo Dial MD [address] [place] [address] PCP - General Internal Medicine 10/26/19 documented as of this encounter
--- OUTSIDE RECORDS SUMMARY | 2024-10-20 11:25 | XMS_ITS | Encounter Summary ---
Author Organization [employer] [facility] Address [address] [facility] 7t [place] [address] Care Team Providers Care Hydrochloric Area Supervisor Name Role Phone Cholo Dial MD Primary Care Prov ider Encounter Details Date Type Department Care Team (Latest Contact Info) Description 11/21/2020 Abstract [facility] CONVERSIONS Dental, Provider, DDS Social History Tobacco [...] Description 12/29/2024 11:30 AM EDT Office Visit [facility] CHC MED & PEDS [address] [place] [address] Cholo Dial MD [address] [place] [address] documented as of this encounter Visit Diagnoses Not on filedocumented in this encounter Care Teams Hydrochloric Area Supervisor Relationship Specialty Start Date End Date Cholo Dial MD [address] [place] [address] PCP - General Internal Medicine 10/26/19 documented as of this encounter
--- OUTSIDE RECORDS SUMMARY | 2024-10-20 11:25 | XMS_ITS | Encounter Summary ---
Author Organization [employer] Address [address] [facility] [address] [place] [address] Care Team Providers Care Outboard System Operator Name Role Phone Cholo Dial MD Primary Care Prov ider Encounter Details Date Type Department Care Team ([facility] st Contact Info) Description 05/12/2024 Orders Only [facility] CHC MED & PEDS [address] [place], [place] [phone] Cholo Dial MD [address] [place], [place] [phone] Bilateral hip pain (Primary Dx) Social History [...] Description 12/29/2024 11:30 AM EDT Office Visit [facility] CHC MED & PEDS [address] [place], [place] [phone] Cholo Dial MD [address] [place], [place] [phone] documented as of this encounter Goals Goal Patient Goal Type Associated Problems Recent Progress Patient-Stated? Author Patient will adhere to medication regimen General Worsening(05/2023 4:09 PM EDT) No James Veloz PharmD Note: With assistance from [employer] program Present to lab General Yes Coleman [...] Vitamin B12 516 200 - 900 pg/mL [facility] Comment:NORMAL 200-900 PG/ML INDETERMINATE 160-199 PG/ML DEFICIENT < 160 PG/ML 05/12/2024 1:16 PM EST 05/12/2024 2:29 PM EST us Cholo Willoughby MD LAB BLOOD ORDERABL ES Final Result [facility] [address] [place] [address] [phone] documented in this encounter Visit Diagnoses Diagnosis Bilateral hip pain- Primary Pain in joint, pelvic region and thigh documented in this encounter Additional Health Concerns Assessment Noted Time PHQ-9 Depression Total Score: 0 08/26/19 24 11:11 AM EDT documented as of this encounter Care Teams Outboard System Operator Relationship Specialty Start Date End Date Cholo Dial MD [address] [place] [address] PCP - General Internal Medicine 10/26/19 documented as of this encounter
--- OUTSIDE RECORDS SUMMARY | 2024-10-20 11:25 | XMS_ITS | Encounter Summary ---
Author Organization [employer] Address [address] [facility] [address] [place] [address] Care Team Providers Care [employer] Name Role Phone Cholo Dial MD Primary Care Prov ider Reason for Visit * Reason Onset Date Comments FYI 07/03/2023 Encounter Details Date Type Department Care Team ([facility] st Contact Info) Description 07/03/2023 Telephone [facility] MEDICINE [address] [place], [place] [phone] Cholo Dial MD [address] [place] [phone] FYI Social History Tobacco Use Types Packs/Day [...] PM EST Tc from Michele with [facility] calling to inform PCP he have a visit with pt today 07/03/2023Michele also informed is going to have just one more visit with pt. Any question [phone] documented in this encounter Plan of Treatment Upcoming Encounters Date Type Department Care Team (Late st Contact Info) Description 12/29/2024 11:30 AM EDT Office Visit [facility] MED & PEDS [address] [place] [address] Cholo Dial MD [address] [place] [address] documented as of this encounter Goals Goal Patient Goal Type Associated Problems Recent Progress Patient-Stated? Author Patient will adhere to medication regimen General Worsening(05/2023 4:09 PM EDT) James Ashraf, PharmD Note: With assistance from [email or web address] program documented as of this encounter Visit Diagnoses Not on filedocumented in this encounter Care Teams As[employer] Group Relationship Specialty Start Date End Date Cholo Dial MD [address] [place] [address] PCP - General Internal Medicine 10/26/19 documented as of this encounter
--- OUTSIDE RECORDS SUMMARY | 2024-10-20 11:25 | XMS_ITS | Clinical Summary ---
Author Organization [employer] Address [address] [facility] [facility] 7[address] [place] [address] Care Team Providers Care Finish Patcher Name Role Phone Cholo Dial MD Primary Care Prov ider Allergies Active Allergy Reactions Criticality Noted Date Comments Etodolac 04/16/2017 Procaine 04/16/2017 Medications meclizine (Antivert) 25 MG tablet Take 1 tablet by mouth if needed each day for dizziness. 02/10/20 22 Active Myrbetriq 50 MG 24 hr tablet Take 1 tablet by mouth at bedtime. 06/28/19 23 Active lidocaine (Lidoderm) 5 % patch Apply 1 patch topically in the morning. Remove & discard patch within 12 hours or as directed by MD. Active Lancets miscIndications:Ty pe 2 diabetes mellitus without complication, without long-term current use of insulin (CMS/[facility]) Use to test blood sugar 2 times daily 100 each 11 07/16/19 24 Active Alcohol Swabs 70 % padsIndications:Ty pe 2 diabetes mellitus without complication, without long-term current use of insulin (CMS/HCC) Use to test blood sugar 2 times daily 100 each 07/16/19 24 Active Blood Glucose Monitoring Suppl (FreeStyle [place] Lite) w/Device kitIndications:Typ e 2 diabetes mellitus without complication, without long-term current use of insulin (CMS/[facility]) Use to test blood sugar 2 times daily 1 kit 07/16/19 24 Active latanoprost (Xalatan) 0.005 % ophthalmic solutionIndication s:Dyslipidemia,SOB (shortness of breath),Raised intraocular pressure of both eyes,Primary angle closure glaucoma of both eyes, unspecified glaucoma stage, unspecified primary angle-closure glaucoma type INSERT ONE DROP IN THE AFFECTED EYE EVERY EVENING 7.5 mL 3 12/11/19 24 Active timolol (Timoptic) 0.5 % ophthalmic solutionIndication s:Raised intraocular pressure of both eyes INSTILL ONE DROP IN EACH EYE EVERY DAY 15 mL 3 12/11/19 24 Active carbidopa (Lodsyn) 25 MG tablet Take 25 mg by mouth 2 times daily. 11/13/19 24 Active alendronate (Fosamax) 70 MG tablet TAKE 1 TABLET ONCE A WEEK WITH 6 TO 8 OZ OF WATER 30 MINUTES BEFORE FIRST FOOD OF THE DAY. DO NOT LIE DOWN FOR 30 MINUTES. 12 tablet 3 03/26/20 24 Active traMADol (Ultram) 50 MG tabletIndications: Bilateral hip pain TAKE ONE TABLET EVERY TWELVE HOURS NEEDED FOR PAIN 56 tablet 06/12/20 24 Active polyethylene glycol, PEG, 3350 (Miralax) 17 g packet MIX 1 PACKET IN 8 OUNCES OF WATER, JUICE,SODA, COFFEE, OR TEA DAILY NEEDED FOR CONSTIPATION 30 packet 3 06/12/20 24 Active rosuvastatin (Crestor) 5 MG tabletIndications: Mixed hyperlipidemia TAKE ONE TABLET EVERY NIGHT AT BEDTIME 90 tablet 1 07/17/19 25 Active metFORMIN (Glucophage) 500 MG tabletIndications: Type 2 diabetes mellitus without complication, without long-term current use of insulin ([facility]) TAKE ONE TABLET IN THE MORNING AND EVENING 60 tablet 3 07/28/19 25 Active acetaminophen (Tylenol) 500 MG tablet Take 1 tablet (500 mg) by mouth every 6 (six) hours if needed for mild pain for up to 20 doses. 20 tablet 07/29/19 25 Active ibuprofen 800 MG tabletIndications: Bilateral hip pain TAKE ONE TABLET EVERY 8 HOURS (THREE TIMES DAILY) WITH FOOD NEEDED FOR mild PAIN 90 tablet 3 08/12/19 25 Active amLODIPine (Norvasc) 5 MG tabletIndications: Essential hypertension TAKE ONE TABLET EVERY MORNING 90 tablet 3 08/28/19 25 Active amantadine (Symmetrel) 100 MG capsule TAKE ONE CAPSULE EVERY MORNING FOR dyskinesias Active carbidopa-levodopa CR (Sinemet CR) 25-100 MG ER tablet TAKE ONE TABLET IN THE MORNING AND EVENING BEFORE BREAKFAST AND dinner. TAKE WITH carbidopa AND ondansetron 08/10/19 25 Active Aspirin Low Dose 81 MG chewable tablet Chew 1 tablet 1 (one) time each day. 07/02/19 24 025 Discontin ued(Other ) Active Problems Problem Noted Date Diagnosed Date Long-term current use of opiate analgesic 2024 Class 1 obesity 12/30/2023 Encounter for screening [...] 100's Post prandial 130-150's Will refer to [facility] optometry Assessment & Plan (08/27/2023 7:32 PM [...] Encounters Date Type Department Care Team Description 09/22/2024 10:45 AM EDT Office Visit [facility] [address] [place] [address] Teresa Dyer MD Pre-op evaluation (Primary Dx) 09/22/2024 Travel 09/18/2024 Telephone [facility] [address] [place] [address] Tatyana Barlow RN 09/17/2024 1:00 PM EDT Clinical Support [facility] [address] [place] [address] Tatyana Barlow, GEE Long-term current use of opiate analgesic 09/17/2024 Telephone [facility] [address] [place] [address] Tatyana Barlow RN 09/17/2024 Travel 09/15/2024 Telephone [facility] MEDICINE [address] [place] [address] Cholo Dial MD PRE-OP 08/26/2024 Refill [facility] [address] [place] [address] Teresa Dyer MD Essential hypertension 08/18/2024 2:00 PM EST Office Visit [facility] OPTOMETRY [address] [place] [address] Dony, Sultana, OD Diabetes type 2, no ocular involvement (CMS/HCC) (Primary Dx); Primary angle closure glaucoma of both eyes, unspecified glaucoma stage, unspecified primary angle-closure glaucoma type; Combined forms of age-related cataract of both eyes; Dry eyes; Presbyopia 08/18/2024 Travel 08/11/2024 Refill [facility] [address] [place] [address] Cholo Dial MD Bilateral hip pain 08/07/2024 Travel 08/07/2024 Telephone [facility] [address] [place] [address] Tatyana Barlow, GEE 08/04/2024 Telephone [facility] [address] [place] [address] Tatyana Barlow, RN Appointment Request 08/04/2024 Telephone [facility] [address] [place] [address] Tatyana Barlow, GEE 07/29/2024 11:00 AM EST Office Visit [facility] [address] [place] [address] Clyde Dyer Dental calculus (Primary Dx) 07/29/2024 10:45 AM EST Office Visit [facility] [address] [place] [address] Ward Arango 07/27/2024 Refill [facility] [address] [place] [address] Cholo Dial MD Type 2 diabetes mellitus without complication, without long-term current use of insulin ([facility]) from Last 3 Months Immunizations Name Administration [...] Sign Reading Time Taken Comments Blood Pressure 139/69 09/22/2024 10:58 AM EDT Pulse 92 09/22/2024 10:58 AM EDT Temperature 36.5 ??C (97.7 ??F) 09/22/2024 10:58 AM E DT Respiratory Rate 20 09/22/2024 10:58 AM EDT Oxygen Saturation 99% 09/22/2024 10:58 AM EDT Inhaled Oxygen Concentration - - Weight 81.2 kg (179 lb) 09/22/2024 10:58 AM EDT Height 162.6 cm (5' 4 ) 09/22/2024 10:58 AM EDT Body Mass Index 30.73 09/22/2024 10:58 AM EDT Plan of Treatment Upcoming Encounters Date Type Department Care Team (Late st Contact Info) Description 12/29/2024 11:30 AM EDT Office Visit [facility] [address] [place] [address] Cholo Dial MD [address] [place] [address] Health Maintenance Due Date Last Done Comments CT Colonography 1950 Colonoscopy 1949 FIT 1950 FOBT 1950 Sigmoidoscopy 1950 Alcohol/Substance Use Screening 1961 Hepatitis C Screening [...] Dental X-Ray: Full Mouth 10/21/2024 10/20/2021, 09/15 Diagnostic Breast Imaging 12/22/2024 06/24/2024, 09/2017 Mammogram 12/22/2024 06/24/2024, 08/2023, 12/31/2018, Additional history exists Dental X-Ray: Bitewings 01/07/2025 01/07/20 24, 04/26/2023, 10/20/2021, Additional history exists Dental Prophylaxis 01/27/2025 07/29/2024, 0 01/07/2024, 04/26/2023, Additional history exists Diabetes: Hemoglobin A1C 03/24/2025 025, 05/12/2024, 08/26/2023, Additional history exists Tobacco Screening 09/22/2025 09/22/2024 DTaP/Tdap/Td Vaccines (3 - Td or Tdap) 06/04/2026 06/04/2016, 11/16/2014 Eye Exam 10/08/2026 10/08/2024, 03/0 09/2024, 08/18/2024, Additional history exists Colorectal Cancer Screening 11/04/2026 [...] James Veloz, YazminD Note: With assistance from [employer] program Present to lab General Yes Coleman Thakur, Jose Guadalupe Note: Have labs previously ordered drawn Complete Immunizations General Yes Coleman Thakur, Jose Guadalupe Note: Present for scheduled vaccinations Procedures Procedure Name Priority Date/Time Associated Diagnosis Comments AMB REFERRAL TO OPHTHALMOLOGY Routine 10/08/2024 Primary angle closure glaucoma of both eyes, unspecified glaucoma stage, unspecified primary angle-closure glaucoma type Combined forms of age-related cataract of both eyes POCT GLUCOSE Routine 09/22/2024 1:26 PM EDT Pre-op evaluation POCT GLYCATED HEMOGLOBIN, TOTAL Routine 09/22/2024 1:25 PM EDT Pre-op evaluation ORAL HYGIENE INSTRUCTIONS Routine 07/29/2024 11:00 AM EST Full PROPHYLAXIS - ADULT Routine 07/29/2024 11:00 AM EST CASE PRESENTATION, DETAILED AND EXTENSIVE TREATMENT PLANNING Routine 07/29/2024 11:00 AM EST 3 EXTRACTION, ERUPTED TOOTH OR EXPOSED ROOT (ELEVATION/FORCEPS REMOVAL) Routine 07/29/2024 10:45 AM EST BI US BREAST LIMITED RIGHT Routine 06/24/2024 2:30 PM EST BITEWINGS - 2 RADIOGRAPHIC IMAGES Routine 01/07/2024 10:00 AM EDT PERIODIC ORAL EVALUATION - ESTABLISHED PATIENT Routine 01/07/2024 10:00 AM EDT LAB COLOGUARD?? COLON CANCER SCREEN Routine 11/05/2023 8:25 PM EDT Screening for colon cancer LIPID PANEL, STANDARD Routine 08/26/2023 11:43 AM EDT Type 2 diabetes mellitus without complication, without long-term current use of insulin ([facility]) INTRAORAL - COMPLETE SERIES OF RADIOGRAPHIC IMAGES Routine 10/20/2021 12:00 AM EDT from Last 3 Months or Most Recently Relevant to Health Maintenance Results * Referral to Ophthalmology (10/08/2024) Sultana Ericksonfo OD OUTPATIENT REFERRAL ORDERABLE S Final Result * POCT Glucose (09/22/2024 1:26 PM EDT) Glucose Blood, POC 167 60 - 200 mg/dL QC Media Lot # [id number] Lot# Expiration Date [id number] Comment:random Blood Capillary blood specimen / Unknown 09/22/2024 1:26 PM EDT us Teresa Dyer MD POINT OF CARE TEST ENTER/ED IT ORDERABLES Final Result * (ABNORMAL) POCT HGB A1C (09/22/2024 1:25 PM EDT) Hemoglobin A1C 6.1(A) 4.0 - 6.0 % QC Media Lot # [id number] Lot# Expiration Date 011 Blood 09/22/2024 1:25 PM EDT us Teresa Dyer MD POINT OF CARE TEST ENTER/ED IT ORDERABLES Edited Result - Final * BI US Breast Limited Right (06/24/2024 2:30 PM EST) Anatomical Region Laterality Modality Breast Right Ultrasound 06/24/2024 2:30 PM EST Narrative 06/24/2024 3:22 PM EST ? [facility] ? [address] [place] [address] ? Ultrasound Report ? Signed ? Patient: Temitope,Comfort ?MR#: [id number] ?? 5 ? : 1950 ?Acct:[id number] ? Age/Sex: 73 / F ?ADM Date: 06/24/24 ? Loc: HO.MAMMO ? Attending Dr: Cholo Willoughby MD ? Ordering Physician: Cholo Dial MD ?? Date of Service: 06/24/24 ?? Procedure(s): US breast RT limited mamm only ?? Accession Number(s): [id number] ? cc: Cholo Dial MD ? EXAMINATION: [...] ??06/24/2024 03:19 PM EST ? Dictated By: ?Swathi,Arianna DO ? Signed By: ?<Electronically signed by Arianna Echevarria, DO in OV> ? 06/24/24 1519 ? DD/ 1430 ? TD/TT: 06/24/24 1448 ? Environmental Monitoring Technician: ? Procedure Note López Ha - 06/24/2024 [facility] [address] [place], [place] [address] Ultrasound Report Signed Patient: Lin Linn#: [id number] 5 : 1950Acct:[id number] Age/Sex: 73 / FADM Date: 06/24/24 Loc: HO.MAMMO Attending Dr: Cholo Willoughby MD Ordering Physician: Cholo Dial MD Date of Service: 06/24/24 Procedure(s): US breast RT limited mamm only Accession Number(s): [id number] cc: Cholo Dial MD EXAMINATION: MM DIAGNOSTIC [...] by: Arianna Echevarria DO 06/24/2024 03:19 PM [facility] Dictated By: Arianna Echevarria DO Signed By: <Electronically signed by Arianna Echevarria DO in OV> 06/24/24 1519 DD/ 1430 TD/TT: 06/24/24 1448 Environmental Monitoring Technician: Cholo Willoughby MD [facility] PROCEDURES Edited Result - Final * Cologuard?? colon cancer screening (11/05/2023 8:25 PM EDT) Cologuard Result Negative Negative 11/13/19 9:39 AM EDT [facility] (CLIA #:[id number]) Comment: NEGATIVE TEST RESULT. A negative Cologuard [...] screened with both Cologuard and colonoscopy. (Mike Howard. et al, N Engl J Med 2014;370(14):1286- 1297) The normal value (reference range) for this assay is negative. COLOGUARD RE-SCREENING RECOMMENDATION: Periodic colorectal cancer screening is an important part of preventive healthcare for asymptomatic individuals at average risk for colorectal cancer. ??Following a negative Cologuard result, the [place] [employer] Society and U.S. Multi-Society Task Force screening guidelines recommend a Cologuard re-screening interval of 3 years. References: [place] [employer] Society Guideline for Colorectal Cancer Screening: https://www.cancer.org/cancer/wbtnh-esojuj-dhnnqu/hhtnkcdyy-ooxhudfpr-gubohuv/ac s-rec ommendations.html.; Carlo CLINE, Sonia SCHAFFER, Raegan MARTE, Colorectal Cancer Screening: Recommendations for Physicians and Patients from the U.S. Multi-Society Task Force on Colorectal Cancer Screening , Am J Gastroenterology 2017; 112:6473-8195. TEST DESCRIPTION: Composite algorithmic analysis of stool [...] (Mike Vitale al, N Engl J Med 2014;370(14):3841-6675.) Cologuard may produce a false negative or false positive result (no colorectal cancer or precancerous polyp present at colonoscopy follow up). A negative Cologuard test result does not guarantee the absence of CRC or advanced adenoma (pre-cancer). The current Cologuard screening interval is every 3 years. ([place] [employer] Society and U.S. Multi-Society Task Force). Cologuard performance data in a 10,000 patient pivotal study using colonoscopy as the reference method can be accessed at the following location: www.Qzzr/results. Additional description of the Cologuard test process, warnings and precautions can be found at www.Nu3rd.com. Stool specimen (specimen) 11/05/2023 8:25 PM EDT 11/07/2023 11:55 AM EDT Cholo Willoughby MD LAB MOLECULAR DIAG NOSTICS ORDERABLES Final Result [facility] (CLIA #:[id number]) [address] [place] [address], * (ABNORMAL) Lipid Panel, Standard (08/26/2023 11:43 AM EDT) Triglycerides 91 <150 mg/dL [facility] Comment:Desirable Triglyceri de: less than 150 mg/dLBorderline High Triglyceride 150-199 mg/dLHigh Triglyceride: 200-499 mg/dLVery High Triglyceride: greater than or equal to 5OO mg/dL Cholesterol 134 <200 mg/dL [facility] Comment:Desirable Cholestero l: less than 200 mg/dLBorderline High Cholesterol: 200-239 mg/dLHigh Cholesterol: greater than 239 mg/dL LDL Cholesterol Calculated 79 <100 mg/dL [facility] Comment:Desirable LDL: less than 100 mg/dLNear Optimal/Above Optimal LDL: 110- 129 mg/dLBorderline High LDL: 130-159 mg/dLHigh LDL: 160-189 mg/dLVery High LDL: greater than or equal to 190 mg/dL HDL Cholesterol 37(L) >40 mg/dL [facility] Comment:Desirable HDL: great er than 40 mg/dL Note: This HDL assay may give artificially low results in patients with liver disease. Blood Venous blood specimen / Unknown 08/26/2023 11:43 AM EDT 08/26/2023 2:07 PM EDT Cholo Willoughby MD LAB BLOOD ORDERABL ES Final Result [facility] [address] [place] [phone] from Last 3 Months or Most Recently Relevant to Health Maintenance Insurance [employer] (HMO D-SNP) [facility] Care Teams Finish Patcher Relationship Specialty Start Date End Date Cholo Dial MD [address] [place] [id number] PCP - General Internal Medicine 10/26/19
--- OUTSIDE RECORDS SUMMARY | 2024-10-20 11:25 | XMS_ITS | Encounter Summary ---
Author Organization [facility] Address [address] [place] [address] Care Team Providers Care Pharmaceutical Detailer Name Role Phone Cholo Dial MD Primary Care Prov ider Encounter Details Date Type Department Care Team (Late st Contact Info) Description 10/23/[address] [address] Jordon Figueroa MD [address] [place] [phone] Social History Tobacco Use Types Packs/Day Years [...] Care Team (Late st Contact Info) Description 02/04/2025 12:45 PM EDT Follow-Up [address] [address] Natasha Rayo MD [address] [place] [address] [phone] Scheduled Procedures Name Priority Associated Diagnoses Date/Ti [...] on filedocumented in this encounter Care Teams Pharmaceutical Detailer Relationship Specialty Start Date End Date Cholo Dial MD [address] [place] [phone] PCP - General 10/07/23 documented as of this encounter
--- OUTSIDE RECORDS SUMMARY | 2024-10-20 11:25 | XMS_ITS | Referral Summary ---
Author Organization [facility] Address [address] [place] [address] Care Team Providers Care Small Boat Engineer Name Role Phone Cholo Dial MD Primary [...] tablet Take 10 mg by mouth daily. 02/17/2019 Active senna (SENOKOT) 8.6 mg tablet [...] Info) Description 02/04/2025 12:45 PM EDT Follow-Up [facility] [address] [place] [address] Natasha Rayo MD [address] [place] [address] Scheduled Procedures Name Priority Associated Diagnoses Date/Ti [...] unspecified glaucoma type Procedures * Due to [place] [employer] law, this organization might not be sharing negative HIV tests. Procedure Name Priority Date/Time Associated Diagnosis Comments COLONOSCOPY 11/06/2016 12:37 PM EDT from Last 3 Months or Most Recently Relevant to Health Maintenance Results * Due to [place] [employer] law, this organization might not be sharing [...] Estimated Blood Loss: Estimated blood loss: none. Jordon Huddleston MD PROVATION PROCEDURES Final Resu lt from Last 3 Months or Most Recently Relevant to Health Maintenance Insurance Care Teams Small Boat Engineer Relationship Specialty Start Date End Date AndersonCholo Chavarria MD [address] [place] [id number] PCP - General 10/07/23
--- OUTSIDE RECORDS SUMMARY | 2024-10-20 11:25 | XMS_ITS | Clinical Summary ---
Author Organization [facility] Address [address] [place] [address] Care Team Providers Care Chucking And Sawing Machine Operator Name Role Phone Cholo Dial [...] Info) Description 02/04/2025 12:45 PM EDT Follow-Up [facility] [address] [place] [address] Natasha Rayo MD [address] [place] [address] Scheduled Procedures Name Priority Associated Diagnoses Date/Ti [...] Done Comments FOBT / Fit Test 1950 Sigmoidoscopy 1950 Osteoporosis Screening 10/18/1999 COVID-19 Vaccine (3 - 2023- season) 2024 10/23/2020, 09/30/2020 Zoster Vaccines (3 of 3) 02/25/2024 12/31/2023, 07/2016 Alcohol/Substance Use Screening 06/17/2024 Health Care Proxy Review 06/17/2024 RSV Vaccine (60+ years old and patients) (1 - 1-dose 75+ series) 2024 Influenza Vaccine (Season Ended) 2025 07/03/2022, 10/19/2021, 05/19/2019, Additional history exists DTaP,Tdap,and Td Vaccines (3 - Td or Tdap) 06/04/2026 06/04/2016, 11/16/2014 Cologuard 11/04/2026 11/05/2023 Colon Cancer Screening 11/06/2026 Colonoscopy 11/06/2026 11/06/2016 Pneumococcal Vaccine: 50+ Years Completed 10/11/2017, 06/04/2016 Mammogram Discontinued 12/31/2018, 10/18/2017 Hepatitis B Vaccines Aged Out No long er eligible based on patient's age to complete this topic Procedures * Due to [place] [employer] law, this organization might not be sharing negative HIV tests. Procedure Name Priority Date/Time Associated Diagnosis Comments COLONOSCOPY 11/06/2016 12:37 PM EDT from Last 3 Months or Most Recently Relevant to Health Maintenance Results * Due to [place] [employer] law, this organization might not be sharing negative HIV tests. * COLONOSCOPY (11/06/2016 12:37 PM EDT) Narrative Procedure Note Jordon Huddleston MD - 11/06/2016 12:37 PM EDT Patient Name: Lin Morrisonwi Procedure Date: 11/06/2016 12:37 PM Date of [...] Relevant to Health Maintenance Insurance Care Teams Chucking And Sawing Machine Operator Relationship Specialty Start Date End Date AndersonCholo Chavarria MD [address] [place] [address] PCP - General 10/07/23
--- OUTSIDE RECORDS SUMMARY | 2024-10-20 11:25 | XMS_ITS | Encounter Summary ---
Author Organization [employer] Address [address] [facility] 7t [place] [address] Care Team Providers Care Tumbling Barrel Painter Name Role Phone Cholo Dial MD Primary Care Prov ider Encounter Details Date Type Department Care Team (Latest Contact Info) Description 10/31/2018 Abstract [facility] CON[facility] Dental, Provider, DDS Social History [...] Description 12/29/2024 11:30 AM EDT Office Visit [facility] [address] [place] [address] Cholo Dial MD [address] [place] [address] documented as of this encounter Visit Diagnoses Not on filedocumented in this encounter Care Teams Tumbling Barrel Painter Relationship Specialty Start Date End Date Cholo Dial MD [address] [place] [address] PCP - General Internal Medicine 10/26/19 documented as of this encounter
--- OUTSIDE RECORDS SUMMARY | 2024-10-20 11:25 | XMS_ITS | Encounter Summary ---
Author Organization [employer] Address [address] [facility] 7t [place] [address] Care Team Providers Care Jewel Cupping Machine Operator Name Role Phone Cholo Dial MD Primary Care Prov ider Encounter Details Date Type Department Care Team ([facility] st Contact Info) Description 08/27/2023 Telephone [facility] [address] [place], [place] [phone] Cholo Dial MD [address] [place], [place] [phone] Social History Tobacco Use Types Packs/Day Years Used Date Smoking Tobacco: Never Smokeless Tobacco: Never Depression Answer Date Recorded Patient Health Questionnaire-9 Score 0 08/26/2023 Patient Health Questionnaire-9 Score 0 08/26/2023 Last PHQ-9: Questionnaire Data Not on file 0 08/26/2023 Housing Stability Answer Date Recorded What is your housing situation today? I have darshan maria isabel 08/26/[address] you li [...] 11:30 AM EDT Office Visit [facility] [address] [place] [address] Cholo Dial MD [address] [place] [address] documented as of this encounter Goals Goal Patient Goal Type Associated Problems Recent Progress Patient-Stated? Author Patient will adhere to medication regimen General Worsening(05/2023 4:09 PM EDT) No James Veloz, PharmD Note: With assistance from [employer] program documented as of this encounter Visit Diagnoses Not on filedocumented in this encounter Additional Health Concerns Assessment Noted Time PHQ-9 Depression Total Score: 0 08/26/19 24 11:11 AM EDT documented as of this encounter Care Teams Jewel Cupping Machine Operator Relationship Specialty Start Date End Date Cholo Dial MD [address] [place] [address] PCP - General Internal Medicine 10/26/19 documented as of this encounter
--- OUTSIDE RECORDS SUMMARY | 2024-10-20 11:25 | XMS_ITS | Encounter Summary ---
Author Organization [employer] Address [address] [facility] 7t [place] [address] Care Team Providers Care Electron Beam Photo Mask Maker Name Role Phone Cholo Dial MD Primary Care Prov ider Encounter Details Date Type Department Care Team ([facility] Contact Info) Description 07/03/2022 Orders Only [facility] [address] [place], [place] [phone] Stormy Abarca MD [address] [place], [place] [phone] Social History Tobacco Use Types Packs/Day Years [...] Department Care Team (Late Contact Info) Description 12/29/2024 11:30 AM EDT Office Visit [facility] [address] [place], [place] [phone] Cholo Dial MD [address] [place], [place] [phone] documented as of this encounter Visit Diagnoses Not on filedocumented in this encounter Care Teams Electron Beam Photo Mask Maker Relationship Specialty Start Date End Date Cholo Dial MD [address] [place] [phone] PCP - General Internal Medicine 10/26/19 documented as of this encounter
--- OUTSIDE RECORDS SUMMARY | 2024-10-20 11:25 | XMS_ITS | Encounter Summary ---
Author Organization [employer] Address [address] [facility] [address] [place] [address] Care Team Providers Care Recreation Counselor Name Role Phone Cholo Dial MD Primary Care Prov ider Reason for Visit * Reason Onset Date Comments Referral 07/12/2022 Encounter Details Date Type Department Care Team ([facility] st Contact Info) Description 07/12/2022 Telephone [facility] MED & PEDS [address] [place], [place] [phone] Cholo Dial MD [address] [place] [address] Referral Social History Tobacco Use Types Packs/Day [...] Thank you. * Telephone Encounter - Oskar Botello - 07/12/2022 1:32 PM EST Tc from Geetha with [facility] Cardiology stating that they wanted the referrals that were sent to be resent with more information. Radiation Oncology Therapist try to provide more information but Geetha was not very informal. If any question please call back geetha at [phone] documented in this encounter Plan of Treatment Upcoming Encounters Date Type Department Care Team (Late st Contact Info) Description 12/29/2024 11:30 AM EDT Office Visit [facility] MED & PEDS [address] [place] [address] Cholo Dial MD [address] [place] [address] documented as of this encounter Visit Diagnoses Not on filedocumented in this encounter Care Teams Recreation Counselor Relationship Specialty Start Date End Date Cholo Dial MD [address] [place] [address] PCP - General Internal Medicine 10/26/19 documented as of this encounter
--- OUTSIDE RECORDS SUMMARY | 2024-10-20 11:25 | XMS_ITS | Encounter Summary ---
Author Organization [employer] Address [address] [facility] [address] [place] [address] Care Team Providers Care Meeting Facilitator Name Role Phone Cholo Dial MD Primary Care Prov ider Reason for Visit * Reason Onset Date Comments Call Back Request 07/02/2023 Encounter Details Date Type Department Care Team ([facility] st Contact Info) Description 07/02/2023 Telephone [facility] CH[facility] MED & PEDS [address] [place], [place] [phone] Cholo Dial MD [address] [place] [address] Call Back Request Social History Tobacco Use [...] PM EST Returned call to Santos at [facility] regarding VO. Informed Santos PCP ok for VO for PT/OT at home. Santos agrees with plan. * Telephone Encounter - Elisabeth Mejía RN - 07/02/2023 2:57 PM EST Pt has not been seen by PCP since 10/2021 multiple cancellations and no shows. [facility] would like VO forstart of care. Please advise if you would be willing to sign orders although you have not seen pt in almost 2 years? * Telephone Encounter - Susan Duglas - 07/02/2023 2:32 PM EST Tc from [facility] with [facility] would like to know if PCP will sign home care orders. Pt is currently admitted in [facility] for severe UTI. Please contact santos at [phone] documented in this encounter Plan of Treatment Upcoming Encounters Date Type Department Care Team (Late st Contact Info) Description 12/29/2024 11:30 AM EDT Office Visit [facility] MED & PEDS [address] [place] [address] Cholo Dial MD [address] [place] [address] documented as of this encounter Goals Goal Patient Goal Type Associated Problems Recent Progress Patient-Stated? Author Patient will adhere to medication regimen General Worsening(05/2023 4:09 PM EDT) James Ashraf, PharmD Note: With assistance from [employer] program documented as of this encounter Visit Diagnoses Not on filedocumented in this encounter Care Teams Meeting Facilitator Relationship Specialty Start Date End Date Cholo Dial MD [address] [place] [address] PCP - General Internal Medicine 10/26/19 documented as of this encounter
== END 2024-10-20 11:41 | disposition home or self-care (01) ==
LOC: HO.HUSH 10:00
PROVIDERS: Visit Provider Urology
DX: Z13.9 Encounter for screening, unspecified (principal)

== ENCOUNTER → 2024-10-20 10:00 | Outpatient (BNVA) | payer OTHER, SELFPAY | PROVIDERS: Visit Provider Urology | DX: N39.41 Urge incontinence (principal); N32.81 Overactive bladder; R39.89 Other symptoms and signs involving the genitourinary system; G20.A1 Parkinson's disease without dyskinesia, without mention of fluctuations | CPT/HCPCS: 51798; 81003; 99212 ==

== ENCOUNTER 2025-01-05 11:26 | Outpatient (REF) | payer OTHER, SELFPAY ==
--- NOTE | ~2025-01-05 | MM_ITS ---
EXAMINATION: MM DIAGNOSTIC DIGITAL BREAST TOMOSYNTHESIS, RIGHT CLINICAL INFORMATION: This is a 6-month follow-up of focal asymmetry in the upper-outer quadrant without a definite sonographic correlate of the right breast. COMPARISON: Comparison made to multiple prior, most recent June 24, 2024, and most remote December 30, 2018. TECHNIQUE: Digital breast tomosynthesis is performed in both the craniocaudal and mediolateral oblique views along with computer-aided detection (CAD). Synthesized 2D images are generated from the tomosynthesis. Spot compression demonstrates images were also obtained. FINDINGS: BREAST COMPOSITION: There are scattered areas of fibroglandular density (ACR BI-RADS breast composition Category b). RIGHT BREAST: Previously described focal asymmetry in the upper-outer quadrant at approximately 9.5 cm from the nipple is unchanged from February 2024. No new masses, suspicious calcifications or other abnormalities are seen. MM/MM tomosynthesis diagnostic RT IMPRESSION: RIGHT BREAST: Focal asymmetry in the upper-outer quadrant, unchanged from February 2024. Probably benign. A 3-month follow-up is recommended as bilateral diagnostic mammogram (to coincide with expected screening time of the contralateral breast). ASSESSMENT: BI-RADS 3 - Probably benign finding(s) - 6 month follow-up suggested RECOMMENDATION: 6 Month F/U Results were provided to the patient at time of visit by the technologist. This patient's information was entered into a reminder system with a target due date for their next mammogram. Electronically signed by: Rissa Connolly MD 01/05/2025 05:21 PM EDT
--- OUTSIDE RECORDS SUMMARY | 2025-01-05 12:44 | XMS_ITS | Encounter Summary ---
Author Organization [employer] Address [address] [facility] [address] [place] [address] Care Team Providers Care Protection [employer] Name Role Phone Cholo Dial MD Primary Care Prov ider Reason for Visit * Reason Onset Date Comments Durable Medical Equipment 11/22/2022 Encounter Details Date Type Department Care Team ([facility] st Contact Info) Description 11/22/2022 Telephone [facility] CHC MED & PEDS [address] [place], [place] [phone] Cholo Dial MD [address] [place] [address] Durable Medical Equipment Social History Tobacco Use [...] 11/22/2022 2:22 PM EDT Tc from [facility] requesting an electric wheel chair . Informs if weight and [place] can be add on script . Fax number [phone]. documented in this encounter Plan of Treatment Upcoming Encounters Date Type Department Care Team (Late st Contact Info) Description 03/10/2025 10:30 AM EDT Office Visit [facility] MED & PEDS [address] [place] [address] Cholo Dial MD [address] [place] [address] documented as of this encounter Visit Diagnoses Not on filedocumented in this encounter Care Teams Protection [employer] Relationship Specialty Start Date End Date Cholo Dial MD [address] [place] [address] PCP - General Internal Medicine 10/26/19 documented as of this encounter
--- OUTSIDE RECORDS SUMMARY | 2025-01-05 12:44 | XMS_ITS | Data Portability ---
Author Organization [employer] [facility], [place] [employer] [facility] Address [address] [place] [address] Care Team Providers Care Family Support Coordinator Name Role Phone HIM [facility] OTHER [facility] Primary Care Provider Assessment Encounter Date Assessment Date Assessment LastModified by Organization Details LastModified Time 10/26/2024 10/26/2024 I provided real -time medical direction via phone for this encounter and was available for additional phone-based assistance as needed. I have reviewed and agree with the Assessment and Plan as documented by the Log Loader Helper. Patient given the opportunity to ask questions. Our service contacted for an assessment of: Multiple complaints As per above, patient seen previously for urinary symptoms and culture was sent but unfortunately is not back. Symptoms have mostly resolved. Patient with variable intake. Overall multiple complaints and concerns from family but patient is medically stable. Per laundry machine operator on the scene, Vital signs are stable. UA is unremarkable, COVID and flu were negative. Patient was found to have slightly low potassium on BMP. Impression: Multiple issues Plan: will replace potassium. Encouraged p.o. intake. No evidence of acute dehydration. Patient does not have frequency or urgency. Advise family to follow-up on urine culture with PCP. Red flags discussed. Allergies: Reviewed PCP f/u: We discussed the diagnostic uncertainty of home visits and the risk associated with this. In this case, the patient and I felt this to be an acceptable and reasonable amount of risk given the benefit of avoiding an ED visit. We discussed the need to seek care urgently/emergentl y in the setting of any new or worsening serious symptoms, particularly fever chills lightheadedness altered mental status [email or web address] Not available 10/26/2024 15:03:04 Plan of Treatment Reminders Order Date Submit Date Provider Last Modified By Organization Details Last Modified Time Details Appointments None recorded. Lab urinalysis, dipstick 2024 025 [facility], [address] [place] [address], [id number] 5 12:48:25 BMP, serum or plasma 2024 025 [facility], [address] [place] [address], [id number] 5 12:48:38 rapid SARS CoV 2 Ag, QL IA, respiratory specimen 2024 025 [facility], [address] [place] [address], [id number] 5 12:48:56 rapid flu (A+B) 2024 025 [facility], [address] [place] [address], [id number] 5 12:49:12 culture, urine 2022 023 [email or web address] (Centralized Electronic Ordering - All Locations), Patient Can Go To The Location Of Their Choice, [facility] 3 08:27:40 urinalysis, dipstick 2022 023 [facility], [address] [place] [address], [id number] 3 20:51:27 BMP, serum or plasma 2022 023 [facility], [address] [place] [address], [id number] 3 20:51:05 Referral None recorded. Procedures None recorded. Surgeries None recorded. Imaging None recorded. Medication Orders potassium chloride ER 20 mEq tablet,exte nded release 2024 025 [email or web address] [facility] [address], [address] [place] [address], [id number], 5 11:15:13 Macrobid 100 mg capsule 2022 023 [facility] [address], [address] [place] [address], [id number], 3 19:15:49 Patient TargetsNo targets recorded. Patient InstructionsNo instructions recorded. Reason for Referral None Reported. Results Created Date Observation Date Name Description Value Unit Range Abnormal Flag Note LastModifiedBy Organization Detail LastModifiedTime 12/30/1912/31/2022 URINE CULTU RE specimen description URINE Not Available [facility] (Centralized Electronic Ordering - All Locations) Patient Can Go To The Location Of Their Choice, [facility] 01/01/2023 08:27:40 12/30/1912/31/2022 URINE CULTU RE special requests NONE Not Available [facility] (Centralized Electronic Ordering - All Locations) Patient Can Go To The Location Of Their Choice, [facility] 01/01/2023 08:27:40 12/30/1901/01/2023 URINE CULTU RE culture Mixed bacter ial cr, indica tive of urogen ital contam inatio n. Not Available [facility] (Centralized Electronic Ordering - All Locations) Patient Can Go To The Location Of Their Choice, [facility] 01/01/2023 08:27:40 12/30/1901/01/2023 URINE CULTU RE report status FINAL 2022 Not Available [facility] (Centralized Electronic Ordering - All Locations) Patient Can Go To The Location Of Their Choice, [facility] 01/01/2023 08:27:40 Result Notes None recorded. Medical Equipment None Reported. Allergies No known drug allergies Medications Name Sig Start Date Stop Date Status Note LastModified by Organization Details LastModified Time medbox status USE DIRECTED active Not Available Not Available No t Available latanoprost 0.005 % eye drops INSERT ONE DROP IN THE AFFECTED EYE EVERY EVENING active Not Available Not Available No t Available ibuprofen 800 mg tablet TAKE ONE TABLET BY MOUTH THREE TIMES DAILY WITH FOOD NEEDED active Not Available Not Available No t Available alendronate 70 mg tablet TAKE 1 TABLET ONCE A WEEK WITH 6 TO 8 OZ OF WATER 30 MINUTES BEFORE FIRST FOOD OF THE DAY. DO NOT LIE DOWN FOR 30 MINUTES. active Not Available Not Available No t Available carbidopa ER 50 mg-levodopa 200 mg tablet,extend ed release TAKE TWO TABLETS THREE TIMES DAILY IN THE MORNING, AT NOON, AND AT BEDTIME active Not Available Not Available No t Available amlodipine 5 mg tablet TAKE ONE TABLET BY MOUTH EVERY MORNING active Not Available Not Available No t Available tamsulosin 0.4 mg capsule TAKE ONE CAPSULE BY MOUTH AT BEDTIME active Not Available Not Available No t Available meclizine 25 mg tablet TAKE ONE TABLET DAILY NEEDED FOR DIZZINESS active Not Available Not Available No t Available docusate sodium 100 mg capsule TAKE ONE CAPSULE BY MOUTH TWICE DAILY active Not Available Not Available No t Available timolol maleate 0.5 % eye drops INSTILL ONE DROP IN EACH EYE EVERY DAY active Not Available Not Available No t Available cholecalcifer ol (vitamin D3) 125 mcg (5,000 unit) capsule TAKE ONE CAPSULE BY MOUTH EVERY MORNING active Not Available Not Available No t Available oxycodone 5 mg tablet TAKE ONE TABLET EVERY 6 HOURS NEEDED FOR PAIN active Not Available Not Available No t Available rosuvastatin 5 mg tablet TAKE ONE TABLET AT BEDTIME active Not Available Not Available No t Available nitrofurantoi n monohydrate/m acrocrystals 100 mg capsule Take 1 capsule every 12 hours by oral route for 7 days. active Not Available Not Available No t Available duloxetine 60 mg capsule,delay ed release TAKE ONE CAPSULE EVERY MORNING active Not Available Not Available No t Available Neupro 1 mg/24 hour transdermal 24 hour patch APPLY ONE PATCH EVERY DAY active Not Available Not Available No t Available Myrbetriq 25 mg tablet,extend ed release TAKE ONE TABLET EVERY MORNING active Not Available Not Available No t Available Myrbetriq 50 mg tablet,extend ed release TAKE ONE TABLET AT BEDTIME active Not Available Not Available No t Available Vitals Date Recorded Respiratory rate Body temperature Oxygen saturation Oxygen saturation in Arterial blood by Pulse oximetry Body weight Body height Heart rate Systolic And Diastolic Provider Name and Address Organization Details Last Updated DateTime 4 18 /min 101.1 [degF] 99 % 99 % 71694.4 g 167.64 cm 55 /min 170/100 mm[Hg] Not Available [employer] 4 20:37:31 Date Recorded Oxygen saturation Oxygen saturation in Arterial blood by Pulse oximetry Body temperature Heart rate Respiratory rate Systolic And Diastolic Provider Name and Address Organization Details Last Updated DateTime 5 97 % 97 % 97.7 [degF] 68 /min 14 /min 121/79 mm[Hg] Not Available [employer] 5 11:10:19 Date Recorded Heart rate Body weight Body temperature Body height Oxygen saturation Oxygen saturation in Arterial blood by Pulse oximetry Respiratory rate Body height Body weight Body temperature Heart rate Respiratory rate Provider Name and Address Organization Details Last Updated DateTime 3 100 /min 62499.4 g 98.4 [degF] 157.48 cm 98 % 98 % 18 /min 157.48 cm 31592.4 g 98.4 [degF] 100 /min 18 /min Not Available [employer] 19:33:38 Date Recorded Oxygen saturation Oxygen saturation in Arterial blood by Pulse oximetry Systolic And Diastolic Systolic And Diastolic Provider Name and Address Organization Details Last Updated DateTime 12/29/2022 98 % 98 % 152/92 mm[Hg] 152/92 mm[Hg] Not Available [employer] 19:33:38 Social History None recorded. Functional Status None recorded. Mental Status None recorded. Family History Nothing Reported. Medical History No medical history recorded. Gynecological HistoryNo gynecological history recorded. Obstetrics History GPAL:G 0 P 0 0 0 0 Past Encounters Encounter ID Performer Location Encounter Start Date Encounter Closed Date Diagnosis/Indication Diagnosis SNOMED-CT Code Diagnosis ICD10 Code Diagnosis Note [id number] Aashish Jacobo MD [facility] [address] [place] [phone] 12/29/2022 18:56:48 12/31/2022 11:40:30 Dysuria 52023559 R30.0 Normal [employer]. Sxs similar to prior for UTI. Will treat with Macrobid and await culture to tailor treatment as needed. Discussed red flag signs that would warrant higher level of care Urinary symptoms 0625119 08 R39.9 Per above [id number] Thai Kasper MD [facility] [address] [place] [phone] 06/27/2023 20:37:28 06/27/2023 22:39:48 Hyperglycemia 03121684 R73.9 Patient without any known history of diabetes, found to be newly hyperglyce diony, febrile (101.1), and with polyuria. UA without LE or NIT to suggest UTI. Given new fever and hyperglyce keshawn, sent to ED for further evaluation . [id number] Pao Gastelum MD [facility] [address] [place] [phone] 10/26/2024 11:10:15 10/26/2024 15:55:58 Urinary symptoms 897299820 R39.9 Viral uppe r respiratory tract infection 925118270 J06.9 Hypokalemia 77599873 E87 .6 Health Concerns Section Related Observation LastModified by Organization Detai ls LastModified Time None Recorded Concern Status LastModified by Organization Details LastModified Time None Recorded Advance Directives Directive None Recorded Payers Insurance Date Sequence Insurance Name Policy Number Policy Carvajal Covered Member ID Carvajal Member ID Guarantor Name 10/26/2024 1 [facility] - DOS ON OR AFTER 2022 - DUAL ELIGIBLE - CARE HOME OPTIONS AND ONE CARE (MEDICARE REPLACEMENT/ADV ANTAGE - HMO) [employer] [id number] [employer] Notes Date Note Type Note Provider Name and Address Organization Details Recorded Time 12/29/2022 text/html [facility] Nursing Assessment: Reason For Request: UTI Denies: Painful urination Frequent and increased urination with flank pain Painful urination with or without fever Inability to fully empty bladder Chief Complaints: UTI/Pyelonephritis PMH: Hypertension, Other Allergies: Unknown Comments: daughter calling in for member with new symptoms of confusion. Member has dark / strong odor of urine. Member denies any new back / abd pain , denies N/v/d. Member denies F/c Member is incontinent but can void on her own PMH parkinsons/ HLD / Verified identity .................... .................... .................... .................... .................... .................... .................... . Log Loader Helper Note From John Brown: Pt caox3 seated complains of frequent, painful burning urination and the feeling of inability to empty bladder 2 days. No hx of UTI. Pt also complains of weakness. Pt denies others [place] warm and dry, walks with steady slow shuffling gait with out assistance to bathroom. Secondary exam unremarkable. Urine dip and BMP to . [facility] orders macrobid, prescribed to pt's local pharmacy. Red flags and pt education discussed. .................... .................... .................... .................... .................... .................... .................... . Disposition: Fulfilled Aashish Jacobo MD [address] [place] [address],[address], [place], [phone], [employer] 12/29/2022 20:27:09 06/27/2023 text/html [facility] Nurse Triage Notes (Senia Cheek): Reason For Request: UTI Denies: Painful urination Frequent and increased urination with flank pain Painful urination with or without fever Inability to fully empty bladder Chief Complaints: UTI/Pyelonephritis PMH: Hypertension, Other Allergies: Unknown Comments: Verified identity/ address Member is at daughters home on [address] but not permanent address Member is having UTI symptoms since last night, confusion/ restlessness/ frequency. Member has no changes in color but strong odor. Member does not have fever/ chills/ n/v/d PMH parkinson .................... .................... .................... .................... .................... .................... .................... . Log Loader Helper Note From Neo Dejesus: dispatched to home of female patient at request of her daughter to evaluate patient for uti. u o a to find patient sitting on the couch. patients daughter states her mom is peeing alot. we take vitals and also obtain urine from the patient. urine results are negative for uti. we check patients blood sugar and it is 377. additionally patient is hypertensive. we reach out to [facility] physician and agree that patient should go to the er. patients family refuses ambulance but states that they will take mom sejal er. .................... .................... .................... .................... .................... .................... .................... . Disposition: Fulfilled Thai Kasper MD [address] [place] [address],[address], [place], [phone], [employer] 06/27/2023 21:41:10 10/26/2024 text/html [facility] Nurse Triage Notes (Sivakumar Michel): Reason For Request: Pt's daughter reporting cough>urinary incontinence>general not feeling well Denies: Unable to void greater than 5 hours Erection that will not go away after 2 hours Fall or trauma that results in urinary incontinence in the setting of pain Fall or injury that results in incontinence in the absence of pain Lower back pain either unilateral or bilateral, unable to void, painful urination -hematuria Chief Complaints: Urinary Symptoms PMH: Hypertension, Parkinson's Disease, Osteoporosis, Incontinence PMH Reviewed at 10/25/2024 - 15:36 Allergies Reviewed at 10/25/2024 - 15:36 Comments: 74 y.o female complains of Urinary Symptoms Patient's daughter calling reporting patient with increased urinary frequency as well as urinary incontinence which is not typical for her. Daughter also reports pt has been coughing starting yesterday as well. Pt noted to be a little dyspneic per daughter, pt able to speak to daughter in full sentences. Daughter reports pt is reporting chills, but no measured fevers. I provided information on the mobile health provider response time and advised the patient and/or caregiver to monitor reported signs and symptoms. I discussed the warning signs of when to seek emergency care -Esdras Michel RN 10/25 @ 1930- Outreach call to patient and daughter, Althea, due to being at capacity for visits tonight, no answer on phone, no alternate number listed, voicemail left for call back. Will reschedule patient visit for tomorrow, 10/26 and await further callback -Esdras Michel RN Log Loader Helper Organization Information for [facility] [email or web address] Legal Name: [facility] Address: [address] [place] [address], [place] [address], Electrical Design Technologist: Antony Sears MD CLIA No.: [id number] Log Loader Helper POC Test Results from [facility] (::26) pH: 7.38 pH units pCO2: 45.4 mmHg pO2: 35.6 mmHg Na: 146 mmol/L K: 3.1 mmol/L iCa: 1.20 mmol/L Cl: 106 mmol/L TCO2: 26.3 mEq/L Hct: 37 % Hb: 12.5 g/dL Glu: 98 mg/dL Lac: 1.00 mmol/L Cr: 0.87 mg/dL BUN: 17 mg/dL A mmol/L HCO3: 27.0 mmol/L Urine Dipstick (:29) Urine leukocytes: - SCARLETT Urine nitrites: - NIT Urine urobilinogen: - URO Urine protein: 2+ PRO Urine pH: 7.0 pH Urine blood: - BLO Urine specific gravity: 1.010 SG Urine ketones: - KET Urine bilirubin: - JOSE RAUL Urine glucose: - GLU Rapid COVID antigen (::29) COVID: - Rapid influenza antigen (::30) Flu: - .................... .................... .................... .................... .................... .................... .................... . Log Loader Helper Note From Umberto Mckinney: This visit is for a 74-year-old female with a history including but not limited to HTN, HLD, Parkinson's disease, osteoporosis. Patient's daughter request the visit to address several days of weakness, dry cough and urinary incontinence. Daughter states the patient was seen at urology last and had a unremarkable UA and a urine culture sent. I called the office during the visit and the results for the culture are not back yet. Patient denies any chest pain, shortness of breath, headaches, dizziness, abdominal or flank pain, fevers, nausea, vomiting, diarrhea. Patient presents awake and alert to baseline, in no acute distress and speaking full sentences. Her vital signs are reasonably stable and she is afebrile. Baseline neurological exam. Normal oropharynx exam. Lungs are clear throughout auscultation. Abdomen is soft, nontender, nondistended. No CVA tenderness. No lower extremity edema. Rapid COVID and flu testing are both negative. I straight catheterized for urine, urine remarkable for protein only. No culture requested. POC labs are uploaded, potassium is 3.1. I treated with potassium chloride 40 mEq PO and left an additional dose of potassium chloride 40 mEq PO to take this evening. We discussed the diagnostic uncertainty of home visits and the risk associated with this. In this case, the patient and I felt this to be an acceptable and reasonable amount of risk given the benefit of avoiding an ED visit. I provided education on the tests that were performed during today's visit. I recommend she stay well hydrated and follow-up with her PCP and urology. I instructed the patient/daughter to present to the emergency department for any new or worsening severe symptoms such as chest pain, shortness of breath, severe abdominal or flank pain, uncontrollable nausea/vomiting, high fever, altered mental status. The patient and her daughter were given the opportunity to ask questions and are agreeable to this plan. [facility] Lab Orders: urinalysis, dipstick: Performed BMP, serum or plasma: Performed rapid SARS CoV 2 Ag, QL IA, respiratory specimen: Performed rapid flu (A+B): Performed [facility] Medication Orders: potassium chloride ER 20 mEq tablet,extended release: Administered .................... .................... .................... .................... .................... .................... .................... . [facility] Consulted: Pao Gastelum .................... .................... .................... .................... .................... .................... .................... . Disposition: Fulfilled Pao Gastelum MD [address] [facility],[address], [place], [address], [employer] 10/26/2024 15:03:56 OBGyn Episode No OBEpisode recorded.
--- OUTSIDE RECORDS SUMMARY | 2025-01-05 12:44 | XMS_ITS | Encounter Summary ---
Author Organization [facility] Address [address] [place] [address] Care Team Providers Care Sales Professional Name Role Phone Cholo Dial MD Primary Care Prov ider Encounter Details Date Type Department Care Team (Late st Contact Info) Description 10/23/[address] [address] Jordon Figueroa MD [address] [place] [phone] Social History Tobacco Use Types Packs/Day Years [...] Info) Description 02/04/2025 12:45 PM EDT Follow-Up [address] [address] Natasha Rayo MD [address] [place] [address] [phone] Scheduled Procedures Name Priority Associated Diagnoses Date/Ti [...] on filedocumented in this encounter Care Teams Sales Professional Relationship Specialty Start Date End Date Cholo Dial MD [address] [place] [id number] PCP - General 10/07/23 documented as of this encounter
== END 2025-01-05 11:27 | disposition home or self-care (01) ==
LOC: HO.MAMMO 11:26
PROVIDERS: PCP Internal Medicine; Visit Provider Internal Medicine
DX: R92.2 Inconclusive mammogram (principal)
CPT/HCPCS: 77061; 77065

== ENCOUNTER → 2025-01-05 11:30 | Outpatient (BNV) | payer OTHER, SELFPAY | PROVIDERS: PCP Internal Medicine; Visit Provider Radiology Body Imaging | DX: R92.8 Other abnormal and inconclusive findings on diagnostic imaging of breast (principal) | CPT/HCPCS: 77065; G0279 ==

== ENCOUNTER → 2025-04-13 11:30 | Outpatient (BNV) | payer OTHER, SELFPAY | PROVIDERS: Visit Provider Radiology Body Imaging | DX: R92.8 Other abnormal and inconclusive findings on diagnostic imaging of breast (principal) | CPT/HCPCS: 77066; G0279 ==

== ENCOUNTER 2025-04-13 11:35 | Outpatient (REF) | payer OTHER, SELFPAY ==
--- NOTE | ~2025-04-13 | MM_ITS ---
EXAMINATION(S): MM DIAGNOSTIC DIGITAL BREAST TOMOSYNTHESIS, BILATERAL CLINICAL INFORMATION: This is a 3-month follow-up from right diagnostic mammogram on January 05, 2025, which recommended a short-term follow-up for focal asymmetry in the upper outer quadrant without definite sonographic correlate. COMPARISON: Comparison made to multiple prior, most recent right diagnostic mammogram on January 05, 2025, and most remote October 13, 2015. TECHNIQUE: Digital breast tomosynthesis is performed in both the mediolateral oblique and craniocaudal views along with computer-aided detection (CAD). Synthesized 2D images are generated from the tomosynthesis. FINDINGS: BREAST COMPOSITION: There are scattered areas of fibroglandular density. RIGHT BREAST: Previously suggested focal asymmetry in the upper outer quadrant is less conspicuous on today's images. No new masses, suspicious calcifications or other abnormalities are seen. LEFT BREAST: No significant masses, suspicious calcifications or other abnormalities are seen. MM/MM tomosynthesis diagnostic BI IMPRESSION: RIGHT BREAST: Less conspicuous focal asymmetry in the upper outer quadrant. No definite sonographic correlate on prior evaluation. Probably benign. A 12 month follow-up is recommended as diagnostic bilateral mammogram. LEFT BREAST: Negative, no mammographic evidence of malignancy. Normal interval follow-up is recommended in 12 months. ASSESSMENT: BI-RADS: Category 3: Probably benign RECOMMENDATION: 12 month diagnostic follow up Results were provided to the patient at time of visit by the technologist. This patient's information was entered into a reminder system with a target due date for their next mammogram. Electronically signed by: Rissa Connolly MD 04/13/2025 02:01 PM EDT
--- OUTSIDE RECORDS SUMMARY | 2025-04-13 14:52 | XMS_ITS | Encounter Summary ---
Author Organization [facility] Address [address] [place] [address] Care Team Providers Care Content Director Name Role Phone Cholo Dial MD Primary Care Prov ider Encounter Details Date Type Department Care Team (Late st Contact Info) Description 10/23/2016 Abstract [facility] [address] [phone] Jordon Figueroa MD [address] [place] [address] Social History Tobacco Use Types Packs/Day Years Used Date Smoking Tobacco: Never Assessed Comments Unknown Sex and Gender Information Value Date Recorded Sex Assigned at Not on file Legal Sex Female 7:05 PM EDT Gender Identity Not on file Sexual Orientation Not on file documented as of this encounter Plan of Treatment Not on file documented as of this encounter Visit Diagnoses Not on filedocumented in this encounter Care Teams Content Director Relationship Specialty Start Date End Date Cholo Dial MD [address] [place] [id number] PCP - General 10/07/23 documented as of this encounter
--- OUTSIDE RECORDS SUMMARY | 2025-04-13 14:52 | XMS_ITS | Clinical Summary ---
Author Organization [facility] Address [address] [place] [address] Care Team Providers Care Paper Mill Manager Name Role Phone Cholo Dial MD [...] APPLY ONE PATCH EVERY DAY 07/04/2023 Active timolol (TIMOPTIC) 0.5% ophthalmic solution Instill 1 drop into both eyes 2 times a day. 10 mL 5 04/03/2024 Active latanoprost (XALATAN) 0.005% ophthalmic solution Instill 1 drop into both eyes nightly. 2.5 mL 5 11/03/2024 Active Hospital, Clinic, or Other Facility Administered [...] 74 04/13/2020 3:56 PM EDT Temperature 36.9 C (98.4 F) 02/18/2019 3:28 PM EDT Respiratory Rate 16 04/13/2020 3:56 PM EDT Oxygen Saturation - - Inhaled Oxygen Concentration - - Weight 79.4 kg (175 lb) 02/18/2019 3:28 PM EDT Height 165.1 cm (5' 5 ) 04/13/2020 3:56 PM EDT Body Mass Index 29.12 02/18/2019 3:28 PM EDT Plan of Treatment Health Maintenance Due Date Last Done Comments FOBT / Fit Test 1950 Sigmoidoscopy 1950 Osteoporosis Screening 10/18/1999 Zoster Vaccines (3 of 3) 02/25/2024 12/31/2023, 07/2016 Alcohol/Substance Use Screening 06/17/2024 Health Care Proxy Review 06/17/2024 RSV Vaccine (60+ years old and patients) (1 - 1-dose 75+ series) 2024 COVID-19 Vaccine (3 - season) 2025 10/23/2020, 09/30/2020 Influenza Vaccine (#1) 2025 3, 10/19/2021, 05/19/2019, Additional history exists DTaP,Tdap,and Td Vaccines (3 - Td or Tdap) 06/04/2026 06/04/2016, 11/16/2014 Cologuard 11/04/2026 11/05/2023 Colon Cancer Screening 11/06/2026 Colonoscopy 11/06/2026 11/06/2016 Pneumococcal Vaccine: 50+ Years Completed 10/11/2017, 06/04/2016 Mammogram Discontinued 12/31/2018, 10/18/2017 Hepatitis B Vaccines Aged Out No long er eligible based on patient's age to complete this topic Procedures * Due to [place] Zipnosis law, this organization might not be sharing negative HIV tests. Procedure Name Priority Date/Time Associated Diagnosis Comments COLONOSCOPY 11/06/2016 12:37 PM EDT from Last 3 Months or Most Recently Relevant to Health Maintenance Results * Due to [place] Zipnosis law, this organization might not be sharing [...] Most Recently Relevant to Health Maintenance Insurance [facility] Care Teams Paper Mill Manager Relationship Specialty Start Date End Date Cholo Dial MD [address] [place] [address] PCP - General 10/07/23
--- OUTSIDE RECORDS SUMMARY | 2025-04-13 14:52 | XMS_ITS | Encounter Summary ---
Author Organization [employer] Address [address] [facility] 7 [place] [address] Care Team Providers Care Paperhanger Assistant Name Role Phone Cholo Dial MD Primary Care Prov ider Reason for Visit * Reason Onset Date Comments Durable Medical Equipment 11/22/2022 Encounter Details Date Type Department Care Team ([facility] st Contact Info) Description 11/22/2022 Telephone [facility] CHC MED & PEDS [address] [place], [place] [phone] Cholo Dial MD [address] [place] [address] Durable Medical Equipment Social History Tobacco Use [...] 11/22/2022 2:22 PM EDT Tc from [facility] requesting an electric wheel chair . Informs if weight and [place] can be add on script . Fax number [phone]. documented in this encounter Plan of Treatment Not on file documented as of this encounter Visit Diagnoses Not on filedocumented in this encounter Care Teams Paperhanger Assistant Relationship Specialty Start Date End Date Cholo Dial MD [address] [place] [id number] PCP - General Internal Medicine 10/26/19 documented as of this encounter
--- OUTSIDE RECORDS SUMMARY | 2025-04-13 14:52 | XMS_ITS | Encounter Summary ---
Author Organization [employer] Address [address] [facility] [address] [place] [address] Care Team Providers Care Java Programmer Analyst Name Role Phone Cholo Dial MD Primary Care Prov ider Encounter Details Date Type Department Care Team ([facility] st Contact Info) Description 04/13/2025 Orders Only [facility] CHC MED & PEDS [address], [place] [phone] Cholo Dial MD [address] [place], [place] [phone] Social History Tobacco Use Types Packs/Day Years [...] t he electric, gas, oil or water [employer] threatened to shut off services in your [...] on file documented as of this encounter Goals Goal Patient Goal Type Associated Problems Recent Progress Patient-Stated? Author Patient will adhere to medication regimen General Worsening(05/2023 4:09 PM EDT) No James Veloz PharmD Note: With assistance from [employer] program Present to lab General Yes Coleman Thakur PharmD Note: Have labs previously ordered drawn Complete Immunizations General Yes Coleman Thakur PharmD Note: Present for scheduled vaccinations documented as of this encounter Procedures Procedure Name Priority Date/Time Associated Diagnosis Comments BI MAMMOGRAM DIAGNOSTIC TOMOSYNTHESIS BILATERAL Routine 04/13/2025 11:38 AM EDT documented in this encounter Results * BI Mammogram Diagnostic Tomosynthesis Bilateral (04/13/2025 11:38 AM EDT) Anatomical Region Laterality Modality Breast Bilateral Mammography 04/13/2025 11:3 8 AM EDT Narrative 04/13/2025 2:04 PM EDT [facility] [address] [place] [address] Mammography Report Signed Patient: Lin Linn MR#: [id number] 5 : 1950 Acct:[id number] Age/Sex: 74 / F ADM Date: 04/13/25 Loc: HO.MAMMO Attending Dr: Cholo Willoughby MD Ordering Physician: Cholo Dial MD Res ults: 3Probably Benign Date of Service: 04/13/25 Follow Up: 12 month diagnos tic follow up Procedure(s): MM tomosynthesis diagnostic BI Accession Number(s): [id number] cc: Cholo Dial MD Reason For Exam: RT BR 3M F/U DENISTY DUE FOR YEARLY EXAMINATION(S): MM DIAGNOSTIC DIGITAL BREAST TOMOSYNTHESIS, BILATERAL CLINICAL INFORMATION: This is a 3-month follow-up from right diagnostic mammogram on January 05, 2025, which recommended a short-term follow-up for focal asymmetry in the upper outer quadrant without definite sonographic correlate. COMPARISON: Comparison made to multiple prior, most recent right diagnostic mammogram on January 05, 2025, and most remote October 13, 2015. TECHNIQUE: Digital breast tomosynthesis is performed in both the mediolateral oblique and craniocaudal views along with computer-aided detection (CAD). Synthesized 2D images are generated from the tomosynthesis. FINDINGS: BREAST COMPOSITION: There are scattered areas of fibroglandular density. RIGHT BREAST: Previously suggested focal asymmetry in the upper outer quadrant is less conspicuous on today's images. No new masses, suspicious calcifications or other abnormalities are seen. LEFT BREAST: No significant masses, suspicious calcifications or other abnormalities are seen. MM/MM tomosynthesis diagnostic BI IMPRESSION: RIGHT BREAST: Less conspicuous focal asymmetry in the upper outer quadrant. No definite sonographic correlate on prior evaluation. Probably benign. A 12 month follow-up is recommended as diagnostic bilateral mammogram. LEFT BREAST: Negative, no mammographic evidence of malignancy. Normal interval follow-up is recommended in 12 months. ASSESSMENT: BI-RADS: Category 3: Probably benign RECOMMENDATION: 12 month diagnostic follow up Results were provided to the patient at time of visit by the technologist. This patient's information was entered into a reminder system with a target due date for their next mammogram. Electronically signed by: Rissa Connolly MD 04/13/2025 02:01 PM EDT Dictated By: Rissa Connolly MD Signed By: <Electronically signed by Rissa Connolly MD in OV> 04/13/25 1401 DD/ 1138 TD/TT: 04/13/25 1144 Elderly Sitter: Procedure Note Donotuseinterpreter, [facility] - [facility] [address] [place], [place] [address] Mammography Report Signed Patient: Billy Linn#: [id number] 5 : 1950Acct:[id number] Age/Sex: 74 / FADM Date: 04/13/25 Loc: HO.MAMMO Attending Dr: Cholo Willoughby MD Ordering Physician: Cholo Dial ults: 3Probably Benign Date of Service: 04/13/25Follow Up: 12 month diagnos tic follow up Procedure(s): MM tomosynthesis diagnostic BI Accession Number(s): [id number] cc: Cholo Dial MD Reason For Exam: RT BR 3M F/U DENISTY DUE FOR YEARLY EXAMINATION(S): MM DIAGNOSTIC DIGITAL BREAST TOMOSYNTHESIS, BILATERAL CLINICAL INFORMATION: This is a 3-month follow-up from right diagnostic mammogram on January 05, 2025, which recommended a short-term follow-up for focal asymmetry in the upper outer quadrant without definite sonographic correlate. COMPARISON: Comparison made to multiple prior, most recent right diagnostic mammogram on January 05, 2025, and most remote October 13, 2015. TECHNIQUE: Digital breast tomosynthesis is performed in both the mediolateral oblique and craniocaudal views along with computer-aided detection (CAD). Synthesized 2D images are generated from the tomosynthesis. FINDINGS: BREAST COMPOSITION: There are scattered areas of fibroglandular density. RIGHT BREAST: Previously suggested focal asymmetry in the upper outer quadrant is less conspicuous on today's images. No new masses, suspicious calcifications or other abnormalities are seen. LEFT BREAST: No significant masses, suspicious calcifications or other abnormalities are seen. MM/MM tomosynthesis diagnostic BI IMPRESSION: RIGHT BREAST: Less conspicuous focal asymmetry in the upper outer quadrant. No definite sonographic correlate on prior evaluation. Probably benign. A 12 month follow-up is recommended as diagnostic bilateral mammogram. LEFT BREAST: Negative, no mammographic evidence of malignancy. Normal interval follow-up is recommended in 12 months. ASSESSMENT: BI-RADS: Category 3: Probably benign RECOMMENDATION: 12 month diagnostic follow up Results were provided to the patient at time of visit by the technologist. This patient's information was entered into a reminder system with a target due date for their next mammogram. Electronically signed by: Rissa Connolly MD 04/13/2025 02:01 PM EDT RP Workstation: [id number] Dictated By: Rissa Connolly MD Signed By: <Electronically signed by Rissa Connolly MD in OV> 04/13/25 1401 DD/ 1138 TD/TT: 04/13/25 1144 Elderly Sitter: Cholo Willoughby MD IMG BI PROCEDURES Final Result documented in this encounter Visit Diagnoses Not on filedocumented in this encounter Additional Health Concerns Assessment Noted Time PHQ-9 Depression Total Score: 0 08/26/19 24 11:11 AM EDT documented as of this encounter Care Teams Java Programmer Analyst Relationship Specialty Start Date End Date Cholo Dial MD [address] [place] [id number] PCP - General Internal Medicine 10/26/19 documented as of this encounter
--- OUTSIDE RECORDS SUMMARY | 2025-04-13 14:53 | XMS_ITS | Encounter Summary ---
Author Organization [employer] Address [address] [facility] [address] [place] [address] Care Team Providers Care Wool Shearing Supervisor Name Role Phone Cholo Dial MD Primary Care Prov ider Reason for Visit * Reason Onset Date Comments Referral 07/12/2022 Encounter Details Date Type Department Care Team ([facility] st Contact Info) Description 07/12/2022 Telephone [facility] CHC MED & PEDS [address], [place] [phone] Cholo Dial MD [address] [place], [place] [phone] Referral Social History Tobacco Use Types Packs/Day [...] Thank you. * Telephone Encounter - Oskar oBtello - 07/12/2022 1:32 PM EST Tc from Geetha with [facility] stating that they wanted the referrals that were sent to be resent with more information. Golf Course Ranger try to provide more information but Geetha was not very informal. If any question please call back geetha at [phone] documented in this encounter Plan of Treatment Not on file documented as of this encounter Visit Diagnoses Not on filedocumented in this encounter Care Teams Wool Shearing Supervisor Relationship Specialty Start Date End Date Cholo Dial MD [address] [place] [id number] PCP - General Internal Medicine 10/26/19 documented as of this encounter
--- OUTSIDE RECORDS SUMMARY | 2025-04-13 14:53 | XMS_ITS | Clinical Summary ---
Author Organization [employer] Address [address] [facility] 7t [place] [address] Care Team Providers Care Shipboard Intelligence Analyst Name Role Phone Cholo Dial MD [...] or as directed by MD. Active Lancets miscIndications:T ype 2 diabetes mellitus without complication, without long-term current use of insulin (HCC) Use to test blood sugar 2 times daily 100 each 11 024 Active Alcohol Swabs 70 % padsIndications:T ype 2 diabetes mellitus without complication, without long-term current use of insulin (HCC) Use to test blood sugar 2 times daily 100 each 024 Active Blood Glucose Monitoring Suppl (FreeStyle [place] Lite) w/Device kitIndications:Ty pe 2 diabetes mellitus without complication, without long-term current use of insulin (HCC) Use to test blood sugar 2 times daily 1 kit 024 Active latanoprost (Xalatan) 0.005 % ophthalmic [...] mg by mouth 2 times daily. Active alendronate (Fosamax) 70 MG tablet TAKE 1 TABLET ONCE A WEEK WITH 6 TO 8 OZ OF WATER 30 MINUTES BEFORE FIRST FOOD OF THE DAY. DO NOT LIE DOWN FOR 30 MINUTES. 12 tablet 3 024 Active traMADol (Ultram) 50 MG tabletIndications :Bilateral hip pain TAKE ONE TABLET EVERY TWELVE HOURS NEEDED FOR PAIN 56 tablet 024 Active polyethylene glycol, PEG, 3350 (Miralax) 17 g packet MIX 1 PACKET IN 8 OUNCES OF WATER, JUICE,SODA, COFFEE, OR TEA DAILY NEEDED FOR CONSTIPATION 30 packet 3 024 Active acetaminophen (Tylenol) 500 MG tablet Take 1 tablet (500 mg) by mouth every 6 (six) hours if needed for mild pain for up to 20 doses. 20 tablet 025 Active amLODIPine (Norvasc) 5 MG tabletIndications :Essential hypertension TAKE ONE TABLET EVERY MORNING 90 tablet 3 025 Active amantadine (Symmetrel) 100 MG capsule TAKE ONE CAPSULE EVERY MORNING FOR dyskinesias Active carbidopa-levodop a CR (Sinemet CR) 25-100 MG ER tablet TAKE ONE TABLET IN THE MORNING AND EVENING BEFORE BREAKFAST AND dinner. TAKE WITH carbidopa AND ondansetron 025 Active IBU 800 MG tabletIndications :Bilateral hip pain TAKE ONE TABLET EVERY 8 HOURS (THREE TIMES DAILY) WITH FOOD NEEDED FOR mild PAIN 90 tablet 3 025 Active rosuvastatin (Crestor) 5 MG tabletIndications :Mixed hyperlipidemia TAKE ONE TABLET EVERY NIGHT AT BEDTIME 90 tablet 1 025 Active metFORMIN (Glucophage) 500 MG tabletIndications :Type 2 diabetes mellitus without complication, without long-term current use of insulin (HCC) TAKE ONE TABLET IN THE MORNING AND EVENING 60 tablet 3 025 Active metFORMIN (Glucophage) 500 MG tabletIndications :Type 2 diabetes mellitus without complication, without long-term current use of insulin (HCC) TAKE ONE TABLET IN THE MORNING AND EVENING 60 tablet 3 12/01/ 025 2024 Discontinued Active Problems Problem Noted Date Diagnosed Date [...] prandial 130-150's Will refer to [facility] optometry Assessment & Plan (08/27/2023 7:32 [...] tramadol Vitamin D deficiency 05/14/2018 Parkinson disease ([facility]) 04/15/2017 Overview (06/29/2022): TP IPD since 2015, [...] Encounters Date Type Department Care Team Description 04/13/2025 Orders Only [facility] CHC MED & PEDS [address] [place] [address] Cholo Dial MD 04/03/2025 Refill [facility] MED & PEDS [address] [place] [address] Cholo Dial MD Type 2 diabetes mellitus without complication, without long-term current use of insulin ([facility]) 03/10/2025 Telephone [facility] MEDICINE [address] [place], [place] [phone] Cholo Dial MD No Show 03/09/2025 Telephone [facility] MED & PEDS [address] [place] [address] Cholo Dial MD chart prep 01/30/2025 Refill [facility] MED & PEDS [address] [place] [address] Cholo Dial MD Mixed hyperlipidemia from Last 3 Months Immunizations Immunization Administration Dates Next Due Influenza injectable quadriv [...] 92 09/22/2024 10:58 AM EDT Temperature 36.5 C (97.7 F) 09/22/2024 10:58 AM EDT Respiratory Rate 20 09/22/2024 10:58 AM EDT Oxygen Saturation 99% 09/22/2024 10:58 AM EDT Inhaled Oxygen Concentration - - Weight 81.2 kg (179 lb) 09/22/2024 10:58 AM EDT Height 162.6 cm (5' 4 ) 09/22/2024 10:58 AM EDT Body Mass Index 30.73 09/22/2024 10:58 AM EDT Plan of Treatment Health Maintenance Due Date Last Done Comments CT Colonography 1950 Colonoscopy 1950 FIT 1950 Sigmoidoscopy 1950 Alcohol/Substance Use Screening 1961 Hepatitis C Screening 10/18/1967 Diabetes: Urine Protein Screening 1968 Zoster Vaccines (3 of 3) 02/25/2024 12/31/2023, [...] Dental X-Ray: Full Mouth 10/21/2024 10/20/2021, 09/15 FOBT 11/04/2024 11/05/2023 Dental X-Ray: Bitewings 01/07/2025 01/07/20 24, 04/26/2023, 10/20/2021, Additional history exists Dental Prophylaxis 01/27/2025 07/29/2024, 0 01/07/2024, 04/26/2023, Additional history exists COVID-19 Vaccine ( season) 2025 10/23/2020, 09/30/2020 Influenza Vaccine (#1) 2025 , 10/19/2021, 05/19/2019, Additional history exists Diabetes: Hemoglobin A1C 03/24/2025 025, 05/12/2024, 08/26/2023, Additional history exists Diagnostic Breast Imaging 04/07/20252024, 01/05/2025, 06/24/2024, Additional history exists Mammogram 04/07/2025 04/13/2025, 07/2 07/2024, 06/24/2024, Additional history exists Tobacco Screening 09/22/2025 09/22/2024 [...] patient's age to complete this topic Meningococcal B Vaccine Aged Out No l onger eligible based on patient's age to complete [...] James Veloz PharmD Note: With assistance from [employer] program Present to lab General Yes Coleman Thakur, Jose Guadalupe Note: Have labs previously ordered drawn Complete Immunizations General Yes Coleman Thakur, PharmAnish Note: Present for scheduled vaccinations Procedures Procedure Name Priority Date/Time Associated Diagnosis Comments BI MAMMOGRAM DIAGNOSTIC TOMOSYNTHESIS BILATERAL Routine 04/13/2025 11:38 AM EDT AMB REFERRAL TO OPHTHALMOLOGY Routine 10/08/2024 Primary angle closure glaucoma of both eyes, unspecified glaucoma stage, unspecified primary angle-closure glaucoma type Combined forms of age-related cataract of both eyes POCT GLYCATED HEMOGLOBIN, TOTAL Routine 09/22/2024 1:25 PM EDT Pre-op evaluation Full PROPHYLAXIS - ADULT Routine 07/29/2024 11:00 AM EST BITEWINGS - 2 RADIOGRAPHIC IMAGES Routine 01/07/2024 10:00 AM EDT PERIODIC ORAL EVALUATION - ESTABLISHED PATIENT Routine 01/07/2024 10:00 AM EDT LAB COLOGUARD COLON CANCER SCREEN Routine 11/05/2023 8:25 PM EDT Screening for colon cancer LIPID PANEL, STANDARD Routine 08/26/2023 11:43 AM EDT Type 2 diabetes mellitus without complication, without long-term current use of insulin ([facility]) INTRAORAL - COMPLETE SERIES OF RADIOGRAPHIC IMAGES Routine 10/20/2021 12:00 AM EDT from Last 3 Months or Most Recently Relevant to Health Maintenance Results * BI Mammogram Diagnostic Tomosynthesis Bilateral (04/13/2025 11:38 AM EDT) Anatomical Region Laterality Modality Breast Bilateral Mammography 04/13/2025 11:3 8 AM EDT Narrative 04/13/2025 2:04 PM EDT [facility] [address] [place] [address] Mammography Report Signed Patient: Lin Linn MR#: [id number] 5 : 1950 Acct:[id number] Age/Sex: 74 / F ADM Date: 04/13/25 Loc: HO.MAMMO Attending Dr: Cholo Willoughby MD Ordering Physician: Cholo Dial MD Res ults: 3Probably Benign Date of Service: 04/13/25 Follow Up: 12 month diagnos tic follow up Procedure(s): MM tomosynthesis diagnostic BI Accession Number(s): [id number] cc: Cholo Dial MD Reason For Exam: [...] 04/13/25 1401 DD/ 1138 TD/TT: 04/13/25 1144 Car Wash Supervisor: Procedure Note Donotuseinterpreter, Image - 04/13/20[facility] [address] [place] [address] Mammography Report Signed Patient: Billy Linn#: [id number] 5 : 1950Acct:[id number] Age/Sex: 74 / FADM Date: 04/13/25 Loc: HO.MAMMO Attending Dr: Cholo Willoughby MD Ordering Physician: Cholo Dial ults: 3Probably Benign Date of Service: 04/13/25Follow Up: 12 month diagnos tic follow up Procedure(s): MM tomosynthesis diagnostic BI Accession Number(s): [id number] cc: Cholo Dial MD Reason For Exam: [...] 04/13/25 1401 DD/ 1138 TD/TT: 04/13/25 1144 Car Wash Supervisor: us Cholo Willoughby MD IMG BI PROCEDURES Final Result * Referral to Ophthalmology (10/08/2024) Sultana Napoles OD OUTPATIENT REFERRAL ORDERABLE S Final Result * (ABNORMAL) POCT HGB A1C (09/22/2024 1:25 PM EDT) Hemoglobin A1C 6.1(A) 4.0 - 6.0 % QC Media Lot # [id number] Lot# Expiration Date Blood 09/22/2024 1:25 PM EDT Teresa Dyer MD POINT OF CARE TEST ENTER/ED IT ORDERABLES Edited Result - Final * Cologuard?? colon cancer screening (11/05/2023 8:25 PM EDT) Cologuard Result Negative Negative 11/13/19 9:39 AM EDT [facility] (CLIA #:[id number]) Comment: NEGATIVE TEST RESULT. A negative Cologuard result indicates a low likelihood that a colorectal cancer (CRC) or advanced adenoma (adenomatous polyps with more advanced pre-malignant features) is present. The chance that a person with a negative Cologuard test has a colorectal cancer is less than 1 in 1500 (negative predictive value >99.9%) or has an advanced adenoma is less than 5.3% (negative predictive value 94.7%). These data are based on a prospective cross-sectional study of 10,000 individuals at average risk for colorectal cancer who were screened with both Cologuard and colonoscopy. (Mike Vitale al, N Engl J Med 2014;370(14):6048-3948) The normal value (reference range) for this assay is negative. COLOGUARD RE-SCREENING RECOMMENDATION: Periodic colorectal cancer screening is an important part of preventive healthcare for asymptomatic individuals at average risk for colorectal cancer. Following a negative Cologuard result, the [employer] and U.S. Multi-Society Task Force screening guidelines recommend a Cologuard re-screening interval of 3 years. References: [employer] Guideline for Colorectal Cancer Screening: https://www.cancer.org/cancer/guqqn-gtohzh-xeyblw/ikjtqxuws-epzvmmdsn-oqxjajw/ac s-rec ommendations.html.; Carlo DK, Sonia SCHAFFER, Raegan SinclairK, Colorectal Cancer Screening: Recommendations for Physicians and Patients from the U.S. Multi-Society Task Force on Colorectal Cancer Screening , Am J Gastroenterology 2017; 112:7764-4007. TEST DESCRIPTION: Composite algorithmic analysis of stool DNA-biomarkers with hemoglobin immunoassay. Quantitative values of individual biomarkers are not [...] screened with both Cologuard and colonoscopy. (Mike Urena, N Engl J Med 2014;370(14):6459-3309.) Cologuard may produce a false negative or false positive result (no colorectal cancer or precancerous polyp present at colonoscopy follow up). A negative Cologuard test result does not guarantee the absence of CRC or advanced adenoma (pre-cancer). The current Cologuard screening interval is every 3 years. ([place] [employer] and U.S. Multi-Society Task Force). Cologuard performance data in a 10,000 patient pivotal study using colonoscopy as the reference method can be accessed at the following location: www.Synup.com/results. Additional description of the Cologuard test process, warnings and precautions can be found at www.Hydrocapsulerd.com. Stool specimen (specimen) 11/05/2023 8:25 PM EDT 11/07/2023 11:55 AM EDT Cholo Willoughby MD LAB MOLECULAR DIAG NOSTICS ORDERABLES Final Result [facility] (CLIA #:[id number]) [address] [place] [address], * (ABNORMAL) Lipid Panel, Standard (08/26/2023 11:43 AM EDT) Triglycerides 91 <150 mg/dL [facility] Comment:Desirable Triglyceri de: less than 150 mg/dLBorderline High Triglyceride 150-199 mg/dLHigh Triglyceride: 200-499 mg/dLVery High Triglyceride: greater than or equal to 5OO mg/dL Cholesterol 134 <200 mg/dL [facility] Comment:Desirable Cholestero l: less than 200 mg/dLBorderline High Cholesterol: 200-239 mg/dLHigh Cholesterol: greater than 239 mg/dL LDL Cholesterol Calculated 79 <100 mg/dL [facility] Comment:Desirable LDL: less than 100 mg/dLNear Optimal/Above Optimal LDL: 110- 129 mg/dLBorderline High LDL: 130-159 mg/dLHigh LDL: 160-189 mg/dLVery High LDL: greater than or equal to 190 mg/dL HDL Cholesterol 37(L) >40 mg/dL [facility] Comment:Desirable HDL: great er than 40 mg/dL Note: This HDL assay may give artificially low results in patients with liver disease. Blood Venous blood specimen / Unknown 08/26/2023 11:43 AM EDT 08/26/2023 2:07 PM EDT us Cholo Willoughby MD LAB BLOOD ORDERABL ES Final Result [facility] [address] [place] [address] [phone] from Last 3 Months or Most Recently Relevant to Health Maintenance Insurance [facility] CORRECTION OPTIONS (O D-SNP) DENTAL [facility] Care Teams Shipboard Intelligence Analyst Relationship Specialty Start Date End Date Cholo Dial MD [address] [place] [phone] PCP - General Internal Medicine 10/26/19
--- OUTSIDE RECORDS SUMMARY | 2025-04-13 14:53 | XMS_ITS | Encounter Summary ---
Author Organization [employer] Address 75 [facility] 7 [place] [address] Care Team Providers Care Senior Software Analyst Name Role Phone Cholo Dial MD Primary Care Prov ider Reason for Visit * Reason Onset Date Comments FYI 07/03/2023 Encounter Details Date Type Department Care Team ([facility] st Contact Info) Description 07/03/2023 Telephone [facility] MEDICINE [address] [place] [address] Cholo Dial MD [address] [place] [phone] FYI Social History Tobacco Use Types Packs/Day [...] from Michele with [facility] calling to inform PCP he have a visit with pt today 07/03/2023, Michele also informed is going to have just one more visit with pt. Any question [phone] documented in this encounter Plan of Treatment Not on file documented as of this encounter Goals Goal Patient Goal Type Associated Problems Recent Progress Patient-Stated? Author Patient will adhere to medication regimen General Worsening(05/2023 4:09 PM EDT) No James Veloz, PharmD Note: With assistance from [employer] program documented as of this encounter Visit Diagnoses Not on filedocumented in this encounter Care Teams Senior Software Analyst Relationship Specialty Start Date End Date Cholo Dial MD [address] [place] [address] PCP - General Internal Medicine 10/26/19 documented as of this encounter
--- OUTSIDE RECORDS SUMMARY | 2025-04-13 14:53 | XMS_ITS | Encounter Summary ---
Author Organization [employer] Address [address] [facility] 7t [place] [address] Care Team Providers Care Barbering Teacher Name Role Phone Cholo Dial MD Primary Care Prov ider Encounter Details Date Type Department Care Team ([facility] st Contact Info) Description 08/27/2023 Telephone [facility] CHC MED & PEDS [address] [place], [place] [phone] Cholo Dial MD [address] [place], [place] [phone] Social History Tobacco Use Types Packs/Day Years [...] James Veloz, PharmD Note: With assistance from [employer] program documented as of this encounter Visit Diagnoses Not on filedocumented in this encounter Additional Health Concerns Assessment Noted Time PHQ-9 Depression Total Score: 0 08/26/19 24 11:11 AM EDT documented as of this encounter Care Teams Barbering Teacher Relationship Specialty Start Date End Date Cholo Dial MD [address] [place] [phone] PCP - General Internal Medicine 10/26/19 documented as of this encounter
--- OUTSIDE RECORDS SUMMARY | 2025-04-13 14:53 | XMS_ITS | Encounter Summary ---
Author Organization [employer] Address 75 [facility] 7 [place] [address] Care Team Providers Care Machinist Wood Name Role Phone Cholo Dial MD Primary Care Prov ider Encounter Details Date Type Department Care Team (Latest Contact Info) Description 10/20/2021 Abstract [facility] CONVERSIONS Dental, Provider, DDS Social History [...] on filedocumented in this encounter Care Teams Machinist Wood Relationship Specialty Start Date End Date Cholo Dial MD [address] [place] [address] PCP - General Internal Medicine 10/26/19 documented as of this encounter
--- OUTSIDE RECORDS SUMMARY | 2025-04-13 14:53 | XMS_ITS | Encounter Summary ---
Author Organization [employer] Address 75 [facility] 7 [place] [address] Care Team Providers Care Archivist Economic History Name Role Phone Cholo Dial MD Primary Care Prov ider Encounter Details Date Type Department Care Team ([facility] st Contact Info) Description 05/12/2024 Orders Only [facility] CHC MED & PEDS [address] [place], [place] [phone] Cholo Dial MD [address] [place], [place] [phone] Bilateral hip pain (Primary Dx) Social History [...] James Veloz PharmD Note: With assistance from [employer] program Present to lab General Yes Coleman [...] Vitamin B12 516 200 - 900 pg/mL [facility] Comment:NORMAL 200-900 PG/ML INDETERMINATE 160-199 PG/ML DEFICIENT < 160 PG/ML 05/12/2024 1:16 PM EST 05/12/2024 2:29 PM EST us Cholo Willoughby MD LAB BLOOD ORDERABL ES Final Result [facility] [address] [place] [address] [phone] documented in this encounter Visit Diagnoses Diagnosis Bilateral hip pain- Primary Pain in joint, pelvic region and thigh documented in this encounter Additional Health Concerns Assessment Noted Time PHQ-9 Depression Total Score: 0 08/26/19 24 11:11 AM EDT documented as of this encounter Care Teams Archivist Economic History Relationship Specialty Start Date End Date Cholo Dial MD [address] [place] [address] PCP - General Internal Medicine 10/26/19 documented as of this encounter
--- OUTSIDE RECORDS SUMMARY | 2025-04-13 14:53 | XMS_ITS | Encounter Summary ---
Author Organization [employer] Address 75 [facility] [address] [place] [address] Care Team Providers Care Category Director Name Role Phone Cholo Dial MD Primary Care Prov ider Reason for Visit * Reason Onset Date Comments Call Back Request 07/02/2023 Encounter Details Date Type Department Care Team ([facility] st Contact Info) Description 07/02/2023 Telephone [facility] CHC MED & PEDS [address] [place], [place] [phone] Cholo Dial MD [address] [place] [address] Call Back Request Social History Tobacco Use [...] PM EST Returned call to Santos at [facility] regarding VO. Informed Santos PCP ok for VO for PT/OT at home. Santos agrees with plan. * Telephone Encounter - Elisabeth Mejía RN - 07/02/2023 2:57 PM EST Pt has not been seen by PCP since 10/2021 multiple cancellations and no shows. [facility]. Please advise if you would be willing to sign orders although you have not seen pt in almost 2 years? * Telephone Encounter - Susan Duglas - 07/02/2023 2:32 PM EST Tc from Santos with [facility] would like to know if PCP will sign home care orders. Pt is currently admitted in [facility] for severe UTI. Please contact santos at [phone] documented in this encounter Plan of Treatment Not on file documented as of this encounter Goals Goal Patient Goal Type Associated Problems Recent Progress Patient-Stated? Author Patient will adhere to medication regimen General Worsening(05/2023 4:09 PM EDT) No James Veloz, PharmD Note: With assistance from [employer] program documented as of this encounter Visit Diagnoses Not on filedocumented in this encounter Care Teams Category Director Relationship Specialty Start Date End Date Cholo Dial MD [address] [place] [phone] PCP - General Internal Medicine 10/26/19 documented as of this encounter
--- OUTSIDE RECORDS SUMMARY | 2025-04-13 14:53 | XMS_ITS | Encounter Summary ---
Author Organization [employer] Address 75 [facility] 7 [place] [address] Care Team Providers Care Patient Care Manager Name Role Phone Cholo Dial MD Primary Care Prov ider Encounter Details Date Type Department Care Team (Latest Contact Info) Description 10/31/[address] [facility] CONVERSIONS Dental, Provider, DDS Social History [...] on filedocumented in this encounter Care Teams Patient Care Manager Relationship Specialty Start Date End Date Cholo Dial MD [address] [place] [address] PCP - General Internal Medicine 10/26/19 documented as of this encounter
--- OUTSIDE RECORDS SUMMARY | 2025-04-13 14:53 | XMS_ITS | Encounter Summary ---
Author Organization [employer] Address 75 [facility] 7 [place] [address] Care Team Providers Care Senior Chemist Name Role Phone Cholo Dial MD Primary Care Prov ider Encounter Details Date Type Department Care Team (Late st Contact Info) Description 07/03/2022 Orders Only [facility] MEDICINE [address] [place], [place] [phone] Stormy Abarca MD [address] [place], [place] [phone] Social History Tobacco Use Types Packs/Day Years [...] filedocumented in this encounter Care Teams Senior Chemist Relationship Specialty Start Date End Date Cholo Dial MD [address] [place] [address] PCP - General Internal Medicine 10/26/19 documented as of this encounter
--- OUTSIDE RECORDS SUMMARY | 2025-04-13 14:53 | XMS_ITS | Encounter Summary ---
Author Organization [employer] Address 75 [facility] 7 [place] [address] Care Team Providers Care Grain Combiner Name Role Phone Cholo Dial MD Primary Care Prov ider Encounter Details Date Type Department Care Team (Latest Contact Info) Description 11/21/2020 Abstract [facility] CONVERSIONS Dental, Provider, DDS Social History [...] on filedocumented in this encounter Care Teams Grain Combiner Relationship Specialty Start Date End Date Cholo Dial MD [address] [place] [address] PCP - General Internal Medicine 10/26/19 documented as of this encounter
== END 2025-04-13 11:36 | disposition home or self-care (01) ==
LOC: HO.MAMMO 11:35
PROVIDERS: Visit Provider Internal Medicine
DX: R92.2 Inconclusive mammogram (principal)
CPT/HCPCS: 77062; 77066

== ENCOUNTER 2025-04-22 07:35 | Outpatient (AMB) | payer OTHER, SELFPAY ==
--- NOTE | 2025-04-22 07:35 | MHC.OFFVIS ---
Intake Visit Reasons: 6M follow up OAB Intake Note: Patient is present for a Telehealth follow up/OAB Urology Medications: mybertiq, Solifenacin Blood thinners: none Last PVR:0ml Candy Puller Required: No Accompanied by: Daughter Allergies No Known Allergies Allergy (Verified 04/22/25 07:37) Medication List - Last Reconciled 04/22/25 by Randell Styles MD alendronate 70 mg PO QWEEK amantadine HCl mg PO amlodipine 5 mg PO DAILY carbidopa-levodopa 25-100 mg ER tabs PO cholecalciferol (vitamin D3) 250 mcg (2 x 125 mcg (5,000 unit)) PO DAILY 30 days ibuprofen 800 mg PO Q8H PRN latanoprost 0.005% 1 drp ophthalmic (eye) DAILY metformin mg PO mirabegron ER (Myrbetriq) 50 mg PO DAILY ondansetron HCl 4 mg PO BID PRN polyethylene glycol 3350 17 grams PO DAILY PRN [rolling walker As directed] rosuvastatin 5 mg PO DAILY solifenacin (Vesicare) 5 mg PO DAILY timolol maleate 0.5% 1 drp ophthalmic (eye) DAILY tramadol 50 mg PO Q6H PRN HPI Comments Details: 04/22/2025--comfort is a 74-year-old female who is followed for overactive bladder symptoms she is currently on Myrbetriq and solifenacin. History of Parkinson's-comorbidity. History of Present Illness The patient is a 74-year-old female presenting with overactive bladder symptoms. Telehealth fu. Video attempted pt unable to upload She has been followed for these symptoms and is currently on Myrbetriq and solifenacin. Her urinary symptoms have shown improvement, with no significant issues reported recently, indicating that the current regimen is effective. The patient is due for medication refills, and a 90-day supply for both medications will be provided. A follow-up appointment is scheduled for nine months to reassess her condition and check her urine. Plan Overactive Bladder - Continue current medications: Myrbetriq and solifenacin. - Schedule a follow-up appointment in nine months for urine assessment. 10/20/24--74-year-old female presenting for fu OAB. H/o Parkinson's. She is here with her daughter who states the urine had a strong odor. Recently, she noticed a strong smell in her urine but did not report other associated symptoms such as pain or discomfort during urination. UA results today note inflammatory cells but were nitrite negative, raising questions about an infection, necessitating a urine culture for confirmation. Her previous medication for a bladder condition is in place. Plan to address possible urinary tract infection, a urine sample will be sent for culture. Based on symptoms and the conversation, empirical antibiotics may be started pending culture results to prevent delay in treatment. Refills for her bladder medication were confirmed, and the importance of hydration was emphasized. The pt's daughter wants to wait on urine culture results before starting antibiotics. 07/30/24--Telehealth follow, patient with her daughter states Myrbetriq has significantly improved LUTS Denies UTI symptoms. 06/28/22--70-year-old female here with her daughter.? She is a nonsmoker.? followed for OAB with LUTS urinary frequency and urge incontinence Daughter reports that the patient has a good appetite and does have issues with constipation She reports good water intake on a daily basis. ? She is on oxybutynin with continued leaking episodes Evaluaiton today: Urinalysis no signs of infection, bladder scan PVR 0 mL Plan replace oxybutynin-prescription for Myrbetriq 50 mg daily ? [facility] Medical History Parkinson disease Hyperparathyroidism Osteoporosis Arthropathy of lumbar facet joint Low back pain Surgical History No pertinent past surgical history Family History Father No problems noted. Mother No problems noted. Social History Household Members: Children Household Members Other:: daughter Alcohol intake: never Patient Tobacco Use Status: Never used Tobacco Current occupational status: disabled Current occupation: Rt handed Review of Systems Const All systems reviewed & are unremarkable except as noted in HPI and below Reports no additional complaints Eyes Reports no additional complaints ENT Reports no additional complaints Card Reports no additional complaints Resp Reports no additional complaints GI Reports no additional complaints Reports as per HPI Musc Reports no additional complaints Skin/Breast Reports system reviewed and no additional complaints, except as documented Neuro Reports no additional complaints Psych Reports no additional complaints Endo Reports no additional complaints Zaid/Lymph Reports no additional complaints Aller/Immun Reports no additional complaints Telehealth Telehealth Telehealth Platform: [employer] Location of provider rendering services: practice address Location of patient: address on file Patient Identification confirmed using: Name, : Yes Telehealth method: voice only Patient verbally consented to treatment: Yes Patient verbally consented to billing insurance company: Yes Patient informed of any privacy concerns related to visit: Yes Minutes spent on Phone/Video with Pt.: 13 Assessment & Plan Assessment & Plan (1) Urgency incontinence: Code(s): N39.41 - Urge incontinence Category: Medical (2) OAB (overactive bladder): Code(s): N32.81 - Overactive bladder Category: Medical (3) UTI symptoms: Code(s): R39.9 - Unspecified symptoms and signs involving the genitourinary system Category: Medical (4) Parkinson disease: Code(s): G20 - Parkinson's disease Category: Medical Plan Plan Overactive Bladder - Continue current medications: Myrbetriq and solifenacin. - Schedule a follow-up appointment in nine months for urine assessment. Medications: Changed From solifenacin (Vesicare) 5 mg PO DAILY 30 days 30 tabs 3RF To solifenacin (Vesicare) 5 mg PO DAILY 90 tabs 3RF Refilled mirabegron ER (Myrbetriq) 50 mg PO DAILY 90 tabs 3RF Patient Instructions: The patient had an opportunity to ask questions regarding treatment plan. The patient expressed understanding and agreement with the above treatment plan. The patient is aware they should contact our office by phone for worsening of their current condition or the appearance of new symptoms. Compliance is encouraged with any medications and followup testing that is ordered. It is a privilege to be allowed the opportunity to participate in the urologic care of your patient. If you have any questions or concerns regarding treatment for the above conditions please do not hesitate to contact me. The office telephone contact is [phone]. This note is constructed in part using voice recognition software. While every effort has been made to ensure accuracy network specialist errors may have been included. Yours sincerely, Randell Styles MD Scribe Plan - Not visible on output: Patient was informed and verbally consented to the use of an ambient scribe for clinic note documentation during this visit. Coding Level of Care Code Tele Est Pt Level 3 (24661) Diagnoses Urgency incontinence N39.41 OAB (overactive bladder) N32.81 UTI symptoms R39.9 Parkinson disease G20
--- OUTSIDE RECORDS SUMMARY | 2025-04-22 07:37 | XMS_ITS | Encounter Summary ---
Author Organization [employer] Address [address] [facility] 7 [place] [address] Care Team Providers Care Bridge/Structure Inspection Team Leader Name Role Phone Cholo Dial MD Primary Care Prov ider Reason for Visit * Reason Onset Date Comments Referral 07/12/2022 Encounter Details Date Type Department Care Team ([facility] st Contact Info) Description 07/12/2022 Telephone [facility] MED & PEDS [address] [place], [place] [phone] Cholo Dial MD [address] [place], [place] [phone] Referral Social History Tobacco Use Types Packs/Day [...] 1:32 PM EST Tc from Geetha with [facility] Cardiology stating that they wanted the referrals that were sent to be resent with more information. Field Handyman try to provide more information but Geetha was not very informal. If any question please call back geetha at [phone] documented in this encounter Plan of Treatment Upcoming Encounters Date Type Department Care Team (Late st Contact Info) Description 05/04/2025 10:15 AM EST Office Visit [facility] MED & PEDS [address] [place] [address] Cholo Dial MD [address] [place] [address] documented as of this encounter Visit Diagnoses Not on filedocumented in this encounter Care Teams Bridge/Structure Inspection Team Leader Relationship Specialty Start Date End Date Cholo Dial MD [address] [place] [address] PCP - General Internal Medicine 10/26/19 documented as of this encounter
--- OUTSIDE RECORDS SUMMARY | 2025-04-22 07:37 | XMS_ITS | Encounter Summary ---
Author Organization [employer] Address [address] [facility] 7 [place] [address] Care Team Providers Care Wood Craftsman Name Role Phone Cholo Dial MD Primary Care Prov ider Reason for Visit * Reason Onset Date Comments Call Back Request 07/02/2023 Encounter Details Date Type Department Care Team ([facility] st Contact Info) Description 07/02/2023 Telephone [facility] CHC MED & PEDS [address] [place], [place] [phone] Cholo Dial MD [address] [place] [address] Call Back Request Social History Tobacco Use [...] PM EST Returned call to Santos at [facility] regarding VO. Informed Santos PCP ok for [...] 2:32 PM EST Tc from Santos with [facility] would like to know if PCP will sign home care orders. Pt is currently admitted in [facility] for severe UTI. Please contact santos at [phone] documented in this encounter Plan of Treatment Upcoming Encounters Date Type Department Care Team (Late st Contact Info) Description 05/04/2025 10:15 AM EST Office Visit [facility] MED & PEDS [address] [place] [address] Cholo Dial MD [address] [place] [address] documented as of this encounter Goals Goal Patient Goal Type Associated Problems Recent Progress Patient-Stated? Author Patient will adhere to medication regimen General Worsening(05/2023 4:09 PM EDT) James Ashraf, PharmD Note: With assistance from [employer] program documented as of this encounter Visit Diagnoses Not on filedocumented in this encounter Care Teams Wood Craftsman Relationship Specialty Start Date End Date Cholo Dial MD [address] [place] [address] PCP - General Internal Medicine 10/26/19 documented as of this encounter
--- OUTSIDE RECORDS SUMMARY | 2025-04-22 07:37 | XMS_ITS | Data Portability ---
Author Organization [employer] [facility] Address [address] [place] [address] Care Team Providers Care Director Of Engineering Name Role Phone HIM [facility] OTHER [facility] Primary Care Provider [phone] Assessment Encounter Date Assessment Date Assessment LastModified by Organization Details LastModified Time 10/26/2024 10/26/2024 I provided real -time medical direction via phone for this encounter and was available for additional phone-based assistance as needed. I have reviewed and agree with the Assessment and Plan as documented by the Cardiovascular Physician Assistant. Patient given the opportunity to ask questions. Our service contacted for an assessment of: Multiple complaints As per above, patient seen previously for urinary symptoms and culture was sent but unfortunately is not back. Symptoms have mostly resolved. Patient with variable intake. Overall multiple complaints and concerns from family but patient is medically stable. Per employment instructional associate on the scene, Vital signs are stable. [...] None recorded. Lab urinalysis, dipstick 2024 025 [facility], [address] [place] [address], [id number] 5 12:48:25 BMP, serum or plasma 2024 025 [facility], [address] [place] [address], [id number] 5 12:48:38 rapid SARS CoV 2 Ag, QL IA, respiratory specimen 2024 025 [facility], [address] [place] [address], [id number] 5 12:48:56 rapid flu (A+B) 2024 025 [facility], [address] [place] [address], [id number] 5 12:49:12 culture, urine 2022 023 [facility] (Centralized Electronic Ordering - All Locations), Patient Can Go To The Location Of Their Choice, [facility] 3 08:27:40 urinalysis, dipstick 2022 023 [facility], [address] [place] [address], [id number] 3 20:51:27 BMP, serum or plasma 2022 023 [facility], [address] [place] [address], [id number] 3 20:51:05 Referral None recorded. Procedures None recorded. Surgeries None recorded. Imaging None recorded. Medication Orders potassium chloride ER 20 mEq tablet,exte nded release 2024 025 [email or web address] [facility] [address], [address] [place] [address], [id number], 5 11:15:13 Macrobid 100 mg capsule 2022 023 [facility] [address], [address] [place] [address], [id number], 3 19:15:49 Patient TargetsNo targets recorded. Patient InstructionsNo instructions recorded. Reason for Referral None Reported. Results Created Date Observation Date Name Description Value Unit Range Abnormal Flag Note LastModifiedBy Organization Detail LastModifiedTime 12/30/1912/31/2022 URINE CULTU RE specimen description URINE Not Available [facility] (Centralized Electronic Ordering - All Locations) Patient Can Go To The Location Of Their Choice, [facility] 01/01/2023 08:27:40 12/30/1912/31/2022 URINE CULTU RE special requests NONE Not Available [facility] (Centralized Electronic Ordering - All Locations) Patient Can Go To The Location Of Their Choice, [facility] 01/01/2023 08:27:40 12/30/1901/01/2023 URINE CULTU RE culture Mixed bacter ial cr, indica tive of urogen ital contam inatio n. Not Available [facility] (Centralized Electronic Ordering - All Locations) Patient Can Go To The Location Of Their Choice, [facility] 01/01/2023 08:27:40 12/30/1901/01/2023 URINE CULTU RE report status FINAL 2022 Not Available [facility] (Centralized Electronic Ordering - All Locations) Patient Can Go To The Location Of Their Choice, [facility] 01/01/2023 08:27:40 Result Notes None recorded. Medical [...] /min 101.1 [degF] 99 % 99 % 37572.4 g 167.64 cm 55 /min 170/100 mm[Hg] Not Available [employer] 4 20:37:31 Date Recorded Oxygen saturation Oxygen saturation in Arterial blood by Pulse oximetry Body temperature Heart rate Respiratory rate Systolic And Diastolic Provider Name and Address Organization Details Last Updated DateTime 5 97 % 97 % 97.7 [degF] 68 /min 14 /min 121/79 mm[Hg] Not Available [employer] 5 11:10:19 Date Recorded Heart rate Body weight Body temperature Body height Oxygen saturation Oxygen saturation in Arterial blood by Pulse oximetry Respiratory rate Body height Body weight Body temperature Heart rate Respiratory rate Provider Name and Address Organization Details Last Updated DateTime 3 100 /min 41801.4 g 98.4 [degF] 157.48 cm 98 % 98 % 18 /min 157.48 cm 20978.4 g 98.4 [degF] 100 /min 18 /min Not Available [employer] 19:33:38 Date Recorded Oxygen saturation Oxygen saturation in Arterial blood by Pulse oximetry Systolic And Diastolic Systolic And Diastolic Provider Name and Address Organization Details Last Updated DateTime 12/29/2022 98 % 98 % 152/92 mm[Hg] 152/92 mm[Hg] Not Available [employer] 19:33:38 Social History None recorded. Functional Status None recorded. Mental Status None recorded. Family History Nothing Reported. Medical History No medical history recorded. Gynecological HistoryNo gynecological history recorded. Obstetrics History GPAL:G 0 P 0 0 0 0 Past Encounters Encounter ID Performer Location Encounter Start Date Encounter Closed Date Diagnosis/Indication Diagnosis SNOMED-CT Code Diagnosis ICD10 Code Diagnosis IMO Codes Diagnosis Note [id number] Aashish Jacobo MD [facility] [address] [place] [phone] 12/29/2022 18:56:48 12/31/2022 11:40:30 Dysuria 71860828 R30.0 Normal Instrument And Control Technician. Sxs similar to prior for UTI. Will treat with Macrobid and await culture to tailor treatment as needed. Discussed red flag signs that would warrant higher level of care Urinary symptoms 0094809 08 R39.9 Per above [id number] Thai Kasper MD [facility] [address] [place] [phone] 06/27/2023 20:37:28 06/27/2023 22:39:48 Hyperglycemia 57261168 R73.9 Patient without any known history of diabetes, found to be newly hyperglyce diony, febrile (101.1), and with polyuria. UA without LE or NIT to suggest UTI. Given new fever and hyperglyce keshawn, sent to ED for further evaluation . [id number] Pao Gastelum MD [facility] [address] [place] [phone] 10/26/2024 11:10:15 10/26/2024 15:55:58 Urinary symptoms 560167697 R39.9 70267 Viral uppe r respiratory tract infection 008936505 J06.9 058522 Hypokalemia 35426873 E87 .6 9791 Health Concerns Section Related Observation LastModified by Organization Detai ls LastModified Time None Recorded Concern Status LastModified by Organization Details LastModified Time None Recorded Advance Directives Directive None Recorded Payers Insurance Date Sequence Insurance Name Policy Number Policy Carvajal Covered Member ID Carvajal Member ID Guarantor Name 10/26/2024 1 [facility] - DOS ON OR AFTER 2022 - DUAL ELIGIBLE - HALF-WAY OPTIONS AND ONE CARE (MEDICARE REPLACEMENT/ADV ANTAGE - HMO) [employer] [id number] [employer] Notes Date Note Type Note Provider Name and Address Organization Details Recorded Time 12/29/2022 text/html ROS as noted in the HPI [facility] Nursing Assessment: Reason For Request: UTI [...] .................... .................... .................... .................... .................... .................... . Cardiovascular Physician Assistant Note From John Brown: Pt caox3 seated complains of frequent, painful burning urination and the feeling of inability to empty bladder 2 days. No hx of UTI. Pt also complains of weakness. Pt denies others Noxon warm and dry, walks with steady slow shuffling gait with out assistance to bathroom. Secondary exam unremarkable. Urine dip and BMP to . [facility] orders macrobid, prescribed to pt's local pharmacy. Red flags and pt education discussed. .................... .................... .................... .................... .................... .................... .................... . Disposition: Fulfilled Aashish Jacobo MD [address] [place] [address],[address], [place], [phone], [employer]onf 12/29/2022 20:27:09 06/27/2023 text/html [facility] Nurse Triage Notes (Senia Cheek): Reason For Request: UTI Denies: Painful urination Frequent and increased urination with flank pain Painful urination with or without fever Inability to fully empty bladder Chief Complaints: UTI/Pyelonephritis PMH: Hypertension, Other Allergies: Unknown Comments: Verified identity/ address Member is at [facility] home on [facility] but not permanent address Member is having UTI symptoms since last night, confusion/ restlessness/ frequency. Member has no changes in color but strong odor. Member does not have fever/ chills/ n/v/d PMH parkinson .................... .................... .................... .................... .................... .................... .................... . Cardiovascular Physician Assistant Note From Neo Dejesus: dispatched to home [...] patient is hypertensive. we reach out to [facility] physician and agree that patient should go to the er. patients family refuses ambulance but states that they will take mom sejal er. .................... .................... .................... .................... .................... .................... .................... . Disposition: Fulfilled Thai Kasper MD [address] [place] [address],[address], [place], [phone], Qonf 06/27/2023 21:41:10 10/26/2024 text/html [facility] Nurse Triage Notes (Sivakumar Michel): Reason For [...] and await further callback -Esdras Michel RN Cardiovascular Physician Assistant Organization Information for [employer] Legal Name: [facility] Transportation Address: [address] [place] [address], [place] [address], Manager Web Application: Antony Sears MD CLIA No.: [id number] Cardiovascular Physician Assistant POC Test Results from Umberto Mckinney [facility] (:) pH: 7.38 pH units pCO2: 45.4 mmHg [...] Urine glucose: - GLU Rapid COVID antigen (:29) COVID: - Rapid influenza antigen (:30) Flu: - .................... .................... .................... .................... .................... .................... .................... . Cardiovascular Physician Assistant Note From Umberto Mckinney: This visit is [...] questions and are agreeable to this plan. [facility] Lab Orders: urinalysis, dipstick: Performed BMP, serum or plasma: Performed rapid SARS CoV 2 Ag, QL IA, respiratory specimen: Performed rapid flu (A+B): Performed [facility] Medication Orders: potassium chloride ER 20 mEq tablet,extended release: Administered .................... .................... .................... .................... .................... .................... .................... . [facility] Consulted: Pao Gastelum .................... .................... .................... .................... .................... .................... .................... . Disposition: Fulfilled Pao Gastelum MD [address] [facility],[address], [place], [address], Gemidis IGIGI 10/26/2024 15:03:56 OBGyn Episode No OBEpisode recorded.
--- OUTSIDE RECORDS SUMMARY | 2025-04-22 07:37 | XMS_ITS | Encounter Summary ---
Author Organization [employer] Address [address] [facility] 7 [place] [address] Care Team Providers Care Tube Depatcher Name Role Phone Cholo Dial MD Primary Care Prov ider Encounter Details Date Type Department Care Team (Late Contact Info) Description 07/03/2022 Orders Only [facility] MEDICINE [address] [place] [address] Stormy Abarca MD [address] [place], [place] [phone] Social History Tobacco Use Types Packs/Day Years [...] Description 05/04/2025 10:15 AM EST Office Visit [facility] CH[facility] MED & PEDS [address] [place], [place] [phone] Cholo Dial MD [address] [place], [place] [phone] documented as of this encounter Visit Diagnoses Not on filedocumented in this encounter Care Teams Tube Depatcher Relationship Specialty Start Date End Date Cholo Dial MD [address] [place] [address] PCP - General Internal Medicine 10/26/19 documented as of this encounter
--- OUTSIDE RECORDS SUMMARY | 2025-04-22 07:37 | XMS_ITS | Encounter Summary ---
Author Organization [employer] Address [address] [facility] 7 [place] [address] Care Team Providers Care Grapple Operator Name Role Phone Cholo Dial MD Primary Care Prov ider Reason for Visit * Reason Onset Date Comments Durable Medical Equipment 11/22/2022 Encounter Details Date Type Department Care Team ([facility] st Contact Info) Description 11/22/2022 Telephone [facility] CHC MED & PEDS [address] [place], [place] [phone] Cholo Dial MD [address] [place] [address] Durable Medical Equipment Social History Tobacco Use [...] 11/22/2022 2:22 PM EDT Tc from [facility] requesting an electric wheel chair . Informs if weight and [place] can be add on script . Fax number [phone]. documented in this encounter Plan of Treatment Upcoming Encounters Date Type Department Care Team ([facility] st Contact Info) Description 05/04/2025 10:15 AM EST Office Visit [facility] MED & PEDS [address] [place] [address] Cholo Dial MD [address] [place] [address] documented as of this encounter Visit Diagnoses Not on filedocumented in this encounter Care Teams Grapple Operator Relationship Specialty Start Date End Date Cholo Dial MD [address] [place] [address] PCP - General Internal Medicine 10/26/19 documented as of this encounter
--- OUTSIDE RECORDS SUMMARY | 2025-04-22 07:37 | XMS_ITS | Encounter Summary ---
Author Organization [facility] Address [address] [place] [address] Care Team Providers Care Electrical Instrument Technician Name Role Phone Cholo Dial MD Primary Care Prov ider Encounter Details Date Type Department Care Team (Late st Contact Info) Description 10/23/2016 Abstract [facility] Eye [address] [phone] Jordon Figueroa MD [address] [place] [address] Social History Tobacco Use Types Packs/Day Years [...] on filedocumented in this encounter Care Teams Electrical Instrument Technician Relationship Specialty Start Date End Date Cholo Dial MD [address] [place] [address] PCP - General 10/07/23 documented as of this encounter
--- OUTSIDE RECORDS SUMMARY | 2025-04-22 07:37 | XMS_ITS | Encounter Summary ---
Author Organization [employer] [facility] Address 75 [facility] 7 [place] [address] Care Team Providers Care Supervisor Warping Department Name Role Phone Cholo Dial MD Primary Care Prov ider Encounter Details Date Type Department Care Team (Latest Contact Info) Description 10/20/2021 Abstract [facility] CONVERSIONS Dental, Provider, DDS Social History [...] Description 05/04/2025 10:15 AM EST Office Visit [facility] CHC MED & PEDS [address] [place] [address] Cholo Dial MD [address] [place] [address] documented as of this encounter Visit Diagnoses Not on filedocumented in this encounter Care Teams Supervisor Warping Department Relationship Specialty Start Date End Date Cholo Dial MD [address] [place] [address] PCP - General Internal Medicine 10/26/19 documented as of this encounter
--- OUTSIDE RECORDS SUMMARY | 2025-04-22 07:37 | XMS_ITS | Encounter Summary ---
Author Organization [employer] [facility] Address 75 [facility] 7 [place] [address] Care Team Providers Care Rehab Nursing Tech Name Role Phone Cholo Dial MD Primary Care Prov ider Encounter Details Date Type Department Care Team (Latest Contact Info) Description 10/31/2018 Abstract [facility] CONVERSIONS Dental, Provider, DDS Social History Tobacco [...] Description 05/04/2025 10:15 AM EST Office Visit [facility] CHC MED & PEDS [address] [place] [address] Cholo Dial MD [address] [place] [address] documented as of this encounter Visit Diagnoses Not on filedocumented in this encounter Care Teams Rehab Nursing Tech Relationship Specialty Start Date End Date Cholo Dial MD [address] [place] [address] PCP - General Internal Medicine 10/26/19 documented as of this encounter
--- OUTSIDE RECORDS SUMMARY | 2025-04-22 07:37 | XMS_ITS | Encounter Summary ---
Author Organization [employer] [facility] Address 75 [facility] 7 [place] [address] Care Team Providers Care Director Prospect Name Role Phone Cholo Dial MD Primary Care Prov ider Encounter Details Date Type Department Care Team (Latest Contact Info) Description 11/21/2020 Abstract [facility] CONVERSIONS Dental, Provider, DDS Social History Tobacco [...] Description 05/04/2025 10:15 AM EST Office Visit [facility] CHC MED & PEDS [address] [place] [address] Cholo Dial MD [address] [place] [address] documented as of this encounter Visit Diagnoses Not on filedocumented in this encounter Care Teams Director Prospect Relationship Specialty Start Date End Date Cholo Dial MD [address] [place] [address] PCP - General Internal Medicine 10/26/19 documented as of this encounter
--- OUTSIDE RECORDS SUMMARY | 2025-04-22 07:37 | XMS_ITS | Clinical Summary ---
Author Organization [facility] Address [address] [place] [address] Care Team Providers Care Distillery Miller Helper Name Role Phone Cholo Dial MD Primary [...] complete this topic Procedures * Due to [place] streamit law, this organization might not be sharing negative HIV tests. Procedure Name Priority Date/Time Associated Diagnosis Comments COLONOSCOPY 11/06/2016 12:37 PM EDT from Last 3 Months or Most Recently Relevant to Health Maintenance Results * Due to [place] streamit law, this organization might not be sharing [...] Most Recently Relevant to Health Maintenance Insurance [facility] Care Teams Distillery Miller Helper Relationship Specialty Start Date End Date Cholo Dial MD [address] [place] [address] PCP - General 10/07/23
--- OUTSIDE RECORDS SUMMARY | 2025-04-22 07:37 | XMS_ITS | Encounter Summary ---
Author Organization [employer] Address 75 [facility] 7 [place] [address] Care Team Providers Care Heater Engineer Helper Name Role Phone Cholo Dial MD Primary Care Prov ider Reason for Visit * Reason Onset Date Comments FYI 07/03/2023 Encounter Details Date Type Department Care Team ([facility] st Contact Info) Description 07/03/2023 Telephone [facility] MEDICINE [address] [place] [address] Cholo Dial MD [address] [place] [address] FYI Social History Tobacco Use Types Packs/Day [...] 4:00 PM EST Tc from Michele with [facility] calling to inform PCP he have a visit with pt today 07/03/2023, Michele also informed is going to have just one more visit with pt. Any question [phone] documented in this encounter Plan of Treatment Upcoming Encounters Date Type Department Care Team ([facility] st Contact Info) Description 05/04/2025 10:15 AM EST Office Visit [facility] MED & PEDS [address] [place] [address] Cholo Dial MD [address] [place] [address] documented as of this encounter Goals Goal Patient Goal Type Associated Problems Recent Progress Patient-Stated? Author Patient will adhere to medication regimen General Worsening(05/2023 4:09 PM EDT) James Ashraf, PharmD Note: With assistance from [employer] program documented as of this encounter Visit Diagnoses Not on filedocumented in this encounter Care Teams Heater Engineer Helper Relationship Specialty Start Date End Date Cholo Dial MD [address] [place] [address] PCP - General Internal Medicine 10/26/19 documented as of this encounter
--- OUTSIDE RECORDS SUMMARY | 2025-04-22 07:37 | XMS_ITS | Clinical Summary ---
Author Organization [employer] Address [address] [facility] 7t [place] [address] Care Team Providers Care Demurrage Worker Name Role Phone Cholo Dial MD [...] 024 Active Blood Glucose Monitoring Suppl (FreeStyle Shannon Lite) w/Device kitIndications:Ty pe 2 diabetes mellitus [...] tramadol Vitamin D deficiency 05/14/2018 Parkinson disease ([facility]) 04/15/2017 Overview (06/29/2022): TP IPD [...] Team Description 04/13/2025 Orders Only [facility] CHC MED & PEDS [address] [place] [address] Cholo Dial MD 04/03/2025 Refill [facility] MED & PEDS [address] [place] [address] Cholo Dial MD Type 2 diabetes mellitus without complication, without long-term current use of insulin ([facility]) 03/10/2025 Telephone [facility] MEDICINE [address] [place], [place] [phone] Cholo Dial MD No Show 03/09/2025 Telephone [facility] MED & PEDS [address] [place] [address] Cholo Dial MD chart prep 01/30/2025 Refill [facility] MED & PEDS [address] [place] [address] Cholo Dial MD Mixed hyperlipidemia from Last [...] 10:15 AM EST Office Visit [facility] CHC MED & PEDS [address] [place] [address] Cholo Dial MD [address] [place] [address] Health Maintenance Due Date Last Done Comments CT Colonography 1950 Colonoscopy 1950 FIT 1950 Sigmoidoscopy 1950 Alcohol/Substance Use Screening 1961 Hepatitis C Screening 10/18/1967 Diabetes: Urine Protein Screening 1968 Zoster Vaccines (3 of 3) 02/25/2024 12/31/2023, 0507/2016 Dental Oral Exam 07/10/2024 01/07/2024, 03/2023, 10/20/2021, [...] 04/26/2023, Additional history exists COVID-19 Vaccine ( - season) 2025 10/23/2020, 09/30/2020 Influenza Vaccine (#1) 2025 3, 10/19/2021, 05/19/2019, Additional history exists Diabetes: Hemoglobin A1C 03/24/2025 025, 05/12/2024, 08/26/2023, Additional history exists Tobacco Screening 09/22/2025 09/22/2024 Diagnostic Breast Imaging 04/21/20262024, 01/05/2025, 06/24/2024, Additional history exists Mammogram 04/21/2026 04/13/2025, 12/16, 06/24/2024, Additional history exists DTaP/Tdap/Td Vaccines (3 - Td or Tdap) [...] James Veloz, PharmD Note: With assistance from [employer] program Present to lab General Yes Coleman Thakur, PharmAnish Note: Have labs previously ordered drawn Complete [...] complication, without long-term current use of insulin ([facility]) INTRAORAL - COMPLETE SERIES OF RADIOGRAPHIC IMAGES Routine 10/20/2021 12:00 AM EDT from Last 3 Months or Most Recently Relevant to Health Maintenance Results * BI Mammogram Diagnostic Tomosynthesis Bilateral (04/13/2025 11:38 AM EDT) Anatomical Region Laterality Modality Breast Bilateral Mammography 04/13/2025 11:3 8 AM EDT Narrative 04/13/2025 2:04 PM EDT [facility] [address] [place], [place] [address] Mammography Report Signed Patient: Lin Linn MR#: [id number] 5 : 1950 Acct:[id number] Age/Sex: 74 / F ADM Date: 04/13/25 Loc: HO.MAMMO Attending Dr: Cholo Willoughby MD Ordering Physician: Cholo Dial MD Res ults: 3Probably Benign Date of Service: 04/13/25 Follow Up: 12 month diagnos tic follow up Procedure(s): MM tomosynthesis diagnostic BI Accession Number(s): [id number] cc: Cholo Dial MD Reason For Exam: [...] 04/13/25 1401 DD/ 1138 TD/TT: 04/13/25 1144 Conference And Event Organiser: Procedure Note Donotuseinterpreter, Image - 04/13/2025 [facility] [address] [place], [place] [address] Mammography Report Signed Patient: Billy Linn#: [id number] 5 : 1950Acct:[id number] Age/Sex: 74 / FADM Date: 04/13/25 Loc: HO.MAMMO Attending Dr: Cholo Willoughby MD Ordering Physician: Cholo Dial ults: 3Probably Benign Date of Service: 04/13/25Follow Up: 12 month diagnos tic follow up Procedure(s): MM tomosynthesis diagnostic BI Accession Number(s): [id number] cc: Cholo Dial MD Reason For Exam: [...] 04/13/25 1401 DD/ 1138 TD/TT: 04/13/25 1144 Conference And Event Organiser: Cholo Willoughby MD IMG BI PROCEDURES Final Result * Referral to Ophthalmology (10/08/2024) Sultnaa Napoles OD OUTPATIENT REFERRAL ORDERABLE S Final Result * (ABNORMAL) POCT HGB A1C (09/22/2024 1:25 PM EDT) Hemoglobin A1C 6.1(A) 4.0 - 6.0 % QC Media Lot # [id number] Lot# Expiration Date ,790 Blood 09/22/2024 1:25 PM EDT Teresa Dyer MD POINT OF CARE TEST ENTER/ED IT ORDERABLES Edited Result - Final * Cologuard?? colon cancer screening (11/05/2023 8:25 PM EDT) Cologuard Result Negative Negative 11/13/19 9:39 AM EDT [facility] (CLIA #:[id number]) Comment: NEGATIVE TEST RESULT. A negative Cologuard [...] Henning et al, N Engl J Med 2014;370(14):4816-9476) The normal value (reference range) for this assay is negative. COLOGUARD RE-SCREENING RECOMMENDATION: Periodic colorectal cancer screening is an important part of preventive healthcare for asymptomatic individuals at average risk for colorectal cancer. Following a negative Cologuard result, the [place] [employer] Society and U.S. Multi-Society Task Force screening guidelines recommend a Cologuard re-screening interval of 3 years. References: [place] [employer] Guideline for Colorectal Cancer Screening: https://www.cancer.org/cancer/tiyrh-qmjwsi-hixydq/vpapwqhky-baiualyuk-fsntokw/ac s-rec ommendations.html.; Carlo DK, Sonia SCHAFFER, Raegan SinclairK, Colorectal Cancer Screening: Recommendations for Physicians and Patients from the U.S. Multi-Society Task Force on Colorectal Cancer Screening , Am J Gastroenterology 2017; 112:9036-3926. TEST DESCRIPTION: Composite algorithmic analysis of stool [...] (Mike Vitale al, N Engl J Med 2014;370(14):4037-1950.) Cologuard may produce a false negative or false positive result (no colorectal cancer or precancerous polyp present at colonoscopy follow up). A negative Cologuard test result does not guarantee the absence of CRC or advanced adenoma (pre-cancer). The current Cologuard screening interval is every 3 years. ([place] Cancer Society and U.S. Multi-Society Task Force). Cologuard performance data in a 10,000 patient pivotal study using colonoscopy as the reference method can be accessed at the following location: www.Xyo/results. Additional description of the Cologuard test process, warnings and precautions can be found at www.PathableogTruHearingrd.FluGen. Stool specimen (specimen) 11/05/2023 8:25 PM EDT 11/07/2023 11:55 AM EDT Cholo Willoughby MD LAB MOLECULAR DIAG NOSTICS ORDERABLES Final Result [facility] (CLIA #:[id number]) [address] [place] [address], * (ABNORMAL) Lipid Panel, Standard (08/26/2023 11:43 AM EDT) Triglycerides 91 <150 mg/dL [facility] Comment:Desirable Triglyceri de: less than 150 mg/dLBorderline High Triglyceride 150-199 mg/dLHigh Triglyceride: 200-499 mg/dLVery High Triglyceride: greater than or equal to 5OO mg/dL Cholesterol 134 <200 mg/dL [facility] Comment:Desirable Cholestero l: less than 200 mg/dLBorderline High Cholesterol: 200-239 mg/dLHigh Cholesterol: greater than 239 mg/dL LDL Cholesterol Calculated 79 <100 mg/dL [facility] Comment:Desirable LDL: less than 100 mg/dLNear Optimal/Above Optimal LDL: 110- 129 mg/dLBorderline High LDL: 130-159 mg/dLHigh LDL: 160-189 mg/dLVery High LDL: greater than or equal to 190 mg/dL HDL Cholesterol 37(L) >40 mg/dL [facility] Comment:Desirable HDL: great er than 40 mg/dL Note: This HDL assay may give artificially low results in patients with liver disease. Blood Venous blood specimen / Unknown 08/26/2023 11:43 AM EDT 08/26/2023 2:07 PM EDT us Cholo Willoughby MD LAB BLOOD ORDERABL ES Final Result [facility] [address] [place] [address] [phone] from Last 3 Months or Most Recently Relevant to Health Maintenance Insurance [facility] OPTIONS (O D-SNP) [facility] Care Teams Demurrage Worker Relationship Specialty Start Date End Date Cholo Dial MD [address] [place] [address] PCP - General Internal Medicine 10/26/19
--- OUTSIDE RECORDS SUMMARY | 2025-04-22 07:37 | XMS_ITS | Encounter Summary ---
Author Organization [employer] Address 75 [facility] 7 [place] [address] Care Team Providers Care Case Manager Specialist Name Role Phone Cholo Dial MD Primary Care Prov ider Encounter Details Date Type Department Care Team ([facility] st Contact Info) Description 05/12/2024 Orders Only [facility] CHC MED & PEDS [address] [place], [place] [phone] Cholo Dial MD [address] [place], [place] [phone] Bilateral hip pain (Primary Dx) Social History [...] Description 05/04/2025 10:15 AM EST Office Visit [facility] CHC MED & PEDS [address] [place], [place] [phone] Cholo Dial MD [address] [place], [place] [phone] documented as of this encounter Goals Goal Patient Goal Type Associated Problems Recent Progress Patient-Stated? Author Patient will adhere to medication regimen General Worsening(05/2023 4:09 PM EDT) No James Veloz PharmD Note: With assistance from [employer] program Present to lab General Yes Coleman [...] Vitamin B12 516 200 - 900 pg/mL [facility] Comment:NORMAL 200-900 PG/ML INDETERMINATE 160-199 PG/ML DEFICIENT < 160 PG/ML 05/12/2024 1:16 PM EST 05/12/2024 2:29 PM EST us Cholo Willoughby MD LAB BLOOD ORDERABL ES Final Result [facility] [address] [place] [address] [phone] documented in this encounter Visit Diagnoses Diagnosis Bilateral hip pain- Primary Pain in joint, pelvic region and thigh documented in this encounter Additional Health Concerns Assessment Noted Time PHQ-9 Depression Total Score: 0 08/26/19 24 11:11 AM EDT documented as of this encounter Care Teams Case Manager Specialist Relationship Specialty Start Date End Date Cholo Dial MD [address] [place] [address] PCP - General Internal Medicine 10/26/19 documented as of this encounter
--- OUTSIDE RECORDS SUMMARY | 2025-04-22 07:37 | XMS_ITS | Encounter Summary ---
Author Organization [employer] Address [address] [facility] 7t [place] [address] Care Team Providers Care Neck Band Operator Name Role Phone Cholo Dial MD Primary Care Prov ider Encounter Details Date Type Department Care Team ([facility] st Contact Info) Description 08/27/2023 Telephone [facility] CHC MED & PEDS [address] [place], [place] [phone] Cholo Dial MD [address] [place], [place] [phone] Social History Tobacco Use Types Packs/Day Years [...] Upcoming Encounters Date Type Department Care Team ([facility] st Contact Info) Description 05/04/2025 10:15 AM EST Office Visit [facility] CHC MED & PEDS [address] [place] [address] Cholo Dial MD [address] [place] [address] documented as of this encounter Goals Goal Patient Goal Type Associated Problems Recent Progress Patient-Stated? Author Patient will adhere to medication regimen General Worsening(05/2023 4:09 PM EDT) No James Veloz, PharmD Note: With assistance from [employer] program documented as of this encounter Visit Diagnoses Not on filedocumented in this encounter Additional Health Concerns Assessment Noted Time PHQ-9 Depression Total Score: 0 08/26/19 24 11:11 AM EDT documented as of this encounter Care Teams Neck Band Operator Relationship Specialty Start Date End Date Cholo Dial MD [address] [place] [address] PCP - General Internal Medicine 10/26/19 documented as of this encounter
== END 2025-04-22 08:27 | disposition home or self-care (01) ==
LOC: HO.HUSH 07:35
PROVIDERS: Visit Provider Urology
DX: N39.41 Urge incontinence (principal); N32.81 Overactive bladder; R39.9 Unspecified symptoms and signs involving the genitourinary system; G20 Parkinson's disease
CPT/HCPCS: 99213

== ENCOUNTER 2025-05-04 10:56 | Outpatient (REF) | payer OTHER, SELFPAY ==
[2025-05-04 14:25] LABS: MANUAL DIFF FLAG NO
[2025-05-04 14:50] LABS: Hematocrit 38.3 % (37.0-47.0); Hemoglobin 11.8 g/dl (12.0-16.0); Imm Gran Abs Auto 0.01 X10*3/uL (0.00-0.03); Imm Gran Pct Auto 0.2 % (0.0-0.4); Lymphocytes Absolute Auto 2.6 X10*3/uL (1.2-4.9); Mean Corpuscular HGB Conc 30.8 g/dl (31.0-35.0); Mean Corpuscular Hemoglobin 28.9 pg (27.0-33.0); Mean Corpuscular Volume 93.6 fL (80.0-98.0); NRBC Abs Auto 0.000 X10*3/uL (0.0-0.012); NRBC Pct Auto 0.0 /100WBC (0.0-0.2); Platelet Count 268 X10*3/uL (160-400); Red Blood Count 4.09 X10*6/uL (4.20-5.50); White Blood Count 5.3 X10*3/uL (4.8-10.8)
[2025-05-04 15:20] LABS: Alanine Aminotransferase 7 U/L (0-31); Albumin Level 3.5 g/dL (3.5-5.0); Alkaline Phosphatase 83 U/L (39-117); Anion Gap 9 (12-20); Aspartate Amino Transferase 29 U/L (5-31); Blood Urea Nitrogen 14 mg/dL (9-16); Calcium 9.3 mg/dL (8.4-10.2); Carbon Dioxide 28 mmol/L (22-29); Chloride 108 mmol/L (96-108); Cholesterol 114 mg/dL (<200); Estimated Glomerular Filt Rate > 60; HDL Cholesterol 44 mg/dL (>40); Potassium 3.4 mmol/L (3.3-5.1); Sodium 142 mmol/L (135-145); Total Protein 7.7 g/dL (6.5-8.0); Triglycerides 75 mg/dL (<150)
[2025-05-04 15:21] LABS: Microalbum/Creatinine Ratio Ur 17.6 ug/mg cr (<30)
[2025-05-05 07:21] LABS: ~HepC Num1 0.18 S/CO (0.00-0.79); ~Hepatitis C Antibody Nonreactive (Nonreactive)
== END 2025-05-04 10:57 | disposition home or self-care (01) ==
LOC: HO.CHCLDS 10:56
PROVIDERS: Visit Provider Internal Medicine
DX: Z11.59 Encounter for screening for other viral diseases (principal); E11.9 Type 2 diabetes mellitus without complications
CPT/HCPCS: 36415; 80053; 80061; 82043; 82570; 84443; 85025; 86803